=== PATIENT | male | born 1955 | race African-American/Black ===

== ENCOUNTER 2017-01-11 17:51 | Inpatient (IN) | payer OTHER ==
--- NOTE | 2017-01-11 18:21 | PDOC ---
History of Present Illness - General History Source: Patient, EMS, Spouse, Old Records Exam Limitations: No Limitations - History of Present Illness Initial Comments: 01/11/17 20:11 The patient is a 61 year old male, with a significant past medical history of hypertension, hyperlipidemia, CVA (with residual right sided weakness) and a two month admission to this hospital last year (10/16/2015 - 12/22/2015), who presents to the emergency department via EMS with a fever. The patient states that he had a routine visit with his occupational therapist earlier today, during which his vitals were taken. He reports that although he did not feel as though he had a fever, his temperature was recorded to be 101.7 degrees. His occupational therapist subsequently called his PMD, who advised that he go to the ED for further evaluation. The patient denies chest pain or shortness of breath. The patient denies chills, cough, nausea, vomiting, diarrhea, melena/ bpr or dysuria. The patient denies back pain. The patient uses a wheelchair at baseline. The patients is at the bedside. Allergies: None reported. Past Surgical History: Laminectomy T9-S1 with debridement (10/22/2015); Drainage of paraspinal and epidural abscesses Social History: Non smoker. Denies alcohol or drug use. PCP: Dr. Milind Leos <Pauline Stein - Last Filed: 01/11/17 22:38> <Efrem Marquez - Last Filed: 01/12/17 00:25> - General Chief Complaint: Blood Pressure Problem Stated Complaint: LOW BLOOD PRESSURE Time Seen by Provider: 01/11/17 18:09 Past History <Pauline Stein - Last Filed: 01/11/17 22:38> - Past Medical History CVA: Yes (R SIDED WEAKNESS) HTN: Yes Hypercholesterolemia: Yes - Psycho/Social/Smoking Cessation Hx Suicidal Ideation: No Smoking History: Never smoked Have you smoked in the past 12 months: No Information on smoking cessation initiated: No Hx Alcohol Use: No Drug/Substance Use Hx: No Substance Use Type: None Hx Substance Use Treatment: No <Efrem Marquez - Last Filed: 01/12/17 00:25> - Past Medical History Allergies/Adverse Reactions: Allergies Allergy/AdvReac Type Severity Reaction Status Date / Time No Known Allergies Allergy Verified 01/11/17 17:56 Home Medications: Ambulatory Orders Aspirin [Aspirin EC] 81 mg PO DAILY 10/16/15 Baclofen 10 mg PO HS 10/16/15 Multivitamins [Multivit ([facility] Formulary)] 1 tab PO DAILY 10/16/15 Acetaminophen [Tylenol .Regular Strength -] 650 mg PO Q6H PRN #0 tablet Amino Acids/Protein Hydrolys [Prostat Sugar-Free Packet -] 30 ml PO BID@0800, 1730 packet 12/22/15 Atenolol [Tenormin -] 50 mg PO DAILY tablet 12/22/15 Cefazolin 2 gm/D5w [Ancef 2 gm Premixed Ivpb -] 50 ml IVPB Q8H-IV #51 ml Enoxaparin [Lovenox -] 40 mg SQ DAILY disp.syrin 12/22/15 Lactobacillus Acidophilus [Bacid -] 1 tab PO DAILY tab 12/22/15 Losartan Potassium [Cozaar -] 50 mg PO DAILY tablet 12/22/15 Magnesium Oxide [Mag-Ox -] 400 mg PO BID tablet 12/22/15 Potassium Chloride Oral Soln [KCl Oral Solution -] 20 meq PO DAILY cup Ranitidine [Zantac -] 150 mg PO BID tablet 12/22/15 Review of Systems - Review of Systems Able to Perform ROS?: Yes Comments:: 01/11/17 19:49 CONSTITUTIONAL: +Fever. No chills, no fatigue EYES: No visual changes ENT: No ear pain, no sore throat CARDIOVASCULAR: No chest pain, no palpitations RESPIRATORY: No cough, no SOB GI: No abdominal pain, no nausea, no vomiting, no constipation, no diarrhea GENITOURINARY: No dysuria, no frequency, no hematuria MUSKULOSKELETAL: No back pain, no joint pain, no myalgias SKIN: No rash NEURO: No headache <MercerPauline pace - Last Filed: 01/11/17 22:38> *Physical Exam - Vital Signs Last Vital Signs Temp Pulse Resp BP Pulse Ox 98 F 102 H 18 113/68 98 01/11/17 17:58 01/11/17 17:58 01/11/17 17:58 01/11/17 17:58 01/11/17 17:58 <Pauline Stein - Last Filed: 01/11/17 22:38> - Vital Signs Last Vital Signs Temp Pulse Resp BP Pulse Ox 98 F 102 H 18 113/68 98 01/11/17 17:58 01/11/17 17:58 01/11/17 17:58 01/11/17 17:58 01/11/17 17:58 - Physical Exam Comments: 01/11/17 20:24 EXAMINATION CONSTITUTIONAL: alert and awake; obese; in no apparent distress HEAD: Normocephalic; atraumatic EYES: PERRL; EOM intact ENMT: External appears normal; mm-dry NECK: Supple; non-tender; no cervical lymphadenopathy CARD: tachycardic; Normal S1, S2; no murmurs, rubs, or gallops RESP: Normal chest excursion with respiration; breath sounds clear and equal bilaterally; no wheezes, rhonchi, or rales ABD: Soft, non-distended; non-tender; no palpable organomegaly, no palpable hernias BACK: no deform; + well healed midline lumbar scar; no midline ttp : + hypospadias; no scrotal masses/fluctuance EXT: Normal passive ROM in all four extremities; non-tender to palpation; distal pulses intact SKIN: Warm, dry, no rash NEURO: cn ii-xii grossly intact; motor: RUE: 5/5; RLE: 2/5; LLE/LUE: 5/5. gait-deffred <Efrem Marquez - Last Filed: 01/12/17 00:25> Heart Score/ECG Review #1 ECG reviewed & interpreted by me at: 18:07 (Vent Rate: 102. Sinus tachycardia. Possible left atrial enlargement. Inferior infarct, age undetermined.) <Pauline Stein - Last Filed: 01/11/17 22:38> ED Treatment Course - LABORATORY CBC & Chemistry Diagram: 01/11/17 22:04 01/11/17 19:50 <Pauline Stein - Last Filed: 01/11/17 22:38> - LABORATORY CBC & Chemistry Diagram: 01/11/17 22:04 01/11/17 19:50 <Efrem Marquez - Last Filed: 01/12/17 00:25> Medical Decision Making - Medical Decision Making 01/11/17 22:38 EXAM: RAD/CHEST X-RAY PORTABLE Reviewed By: Dr. Mila Mireles IMPRESSION: No significant interval change or acute lung disease is present. <Pauline Stein - Last Filed: 01/11/17 22:38> - Critical Care Time Total Critical Care Time (minutes): 90 Critical Care Statement: The care of this patient involved high complexity decision making to prevent further life threatening deterioration of the patient 's condition and/or to evalute & treat vital organ system(s) failure or risk of failure. - Medical Decision Making 01/11/17 20:30 Patient is 61-year-old male with history of hypertension, hyperlipidemia, CVA, status post epidural abscess resection with urinary incontinence presents with generalized weakness, malaise, MAXIMUM TEMPERATURE of 101.7 at home and transient hypotension and route to the ER. In the ER, patient is initially noted to be afebrile with a labile blood pressure the response to fluid boluses. There is no evidence of meningismus. Lungs are clearance real abdominal exams reveal no focal tenderness. There is no evidence of midline back or CVA tenderness. There is no evidence of soft tissue infection. We'll obtain CBC/CMP/UA/urine culture/blood culture/lactic acid. We'll obtain chest x- ray. Will aggressively hydrate. Will reassess, likely admission 01/11/17 21:30 Patient reassessed. Patient is asymptomatic but his blood pressure remains labile requiring intermittent boluses of normal saline. CBC is clotted CMP reveals minimally elevated lactic acid and positive troponis and CPK likely consistent with demand ischemia. Urinalysis reveals numerous wbc's and rbc's per high-power field consistent with cystitis. Patient has received IV Zosyn. Will admit to the ICU further evaluation and treatment. 01/11/17 22:02 patient complaining of shaking chills. Repeat rectal temperature noted to be 102.7. Patient is going to receive IV Tylenol and continue to be fluid resuscitated. Will repeat lactic acid. Awaiting transfer to the ICU 01/12/17 00:24 Patient is resting comfortably. Patient refused Woodson catheter. Repeat blood pressure noted to be 90/72 with the MHP of 75. Awaiting transfer to the ICU. <Efrme Marquez - Last Filed: 01/12/17 00:25> *DC/Admit/Observation/Transfer - Attestations Scribe Attestion: 01/11/17 18:33 Documentation prepared by Pauline Stein, acting as medical office representative for Efrem Marquez MD. <Pauline Stein - Last Filed: 01/11/17 22:38> - Discharge Dispostion Admit: Yes - Attestations Physician Attestion: 01/11/17 22:50 The documentation was prepared by the scribe under my direct supervision. I have reviewed the documentation which correctly represents the findings, medical decision-making and critical action taken by me. <Efrem Marquez - Last Filed: 01/12/17 00:25> Diagnosis at time of Disposition: Non-ST elevated myocardial infarction (non-STEMI) Sepsis Qualifiers: Sepsis type: sepsis due to unspecified organism Qualified Code(s): A41.9 - Sepsis, unspecified organism Urinary tract infection Qualifiers: Urinary tract infection type: acute cystitis Hematuria presence: with hematuria Qualified Code(s): N30.01 - Acute cystitis with hematuria - Referrals
[2017-01-11 20:19] LABS: VENOUS BLOOD GAS HCO3 22.6 meq/L (19-25); VENOUS PH 7.36 (7.32-7.42)
[2017-01-11 20:32] LABS: CALCIUM 7.9 mg/dL (8.5-10.1)
[2017-01-11 20:34] LABS: INR 1.28 (0.82-1.09); PROTHROMBIN TIME (PATIENT) 14.1 SEC (9.98-11.88)
[2017-01-11] MEDS: SODIUM CHLORIDE 0.9% 500 ML INFUS.BAG IV PRN (20:35)
[2017-01-11 20:37] LABS: ACTIVATED PTT 21.1 SECONDS (26.9-34.4)
[2017-01-11 20:41] LABS: URINE APPEARANCE SLCLOUDY; URINE BILIRUBIN NEGATIVE (NEGATIVE); URINE COLOR YELLOW; URINE GLUCOSE (UA) NEGATIVE (NEGATIVE); URINE KETONE NEGATIVE (NEGATIVE); URINE NITRITE NEGATIVE (NEGATIVE); URINE UROBILINOGEN NEGATIVE E.U./dl (0.2-1.0)
[2017-01-11 20:49] LABS: BILIRUBIN,TOTAL 0.6 mg/dL (0.2-1.0); COCKROFT - GAULT 80.22; CREATININE 1.3 mg/dL (0.7-1.3); TOT PROT 7.2 g/dl (6.4-8.2)
[2017-01-11 21:03] LABS: TROPONIN I 1.88 ng/ml (0.00-0.05)
[2017-01-11 21:20] LABS: URINE BLOOD 3+ (NEGATIVE); URINE LEUK ESTERASE 2+ (NEGATIVE); URINE PROTEIN 1+ (NEGATIVE)
[2017-01-11 21:24] LABS: URINE BACTERIA MANY /hpf (NONE SEEN); URINE MUCUS RARE; URINE RBC 123 /hpf (0-3); URINE WBC 30 /hpf (3-5); YEAST MANY
[2017-01-11] MEDS ORDERED: ACETAMINOPHEN 1000 MG/100 ML VIAL (NON FORMULARY) IVPB ONE (21:30)
[2017-01-11] MEDS ORDERED: PIPERACILLIN/TAZOB 4.5 GM/100 ML PRE-DOCKED IVPB ONE (21:30)
[2017-01-11] MEDS ORDERED: PIPERACILLIN/TAZOB 4.5 GM 100 ML IVPB ONE (21:37)
[2017-01-11] MEDS ORDERED: ACETAMINOPHEN INJECTION 100 ML IVPB ONE (21:37)
[2017-01-11 22:14] LABS: BASOPHIL 0.3 % (0-2.0); MCH 26.4 pg (25.7-33.7); MCHC 31.8 g/dl (32.0-35.9); MEAN CELL VOLUME 82.8 fl (80-96); MEAN PLT VOLUME 7.9 fl (7.5-11.1); NEUTROPHILS 83.4 % (42.8-82.8); PLATELET COUNT 185 K/MM3 (134-434); RDW 14.8 % (11.9-15.9); WHITE BLOOD COUNT 11.1 K/mm3 (4.0-10.0)
--- NOTE | 2017-01-11 22:16 | HP ---
Addendum entered and electronically signed by Lalo Hammer, LORNE 01/12/17 19: 28: Original Note: CHIEF COMPLAINT: fever, low BP PCP: Dr. Leos ID: Dr. Espinosa Cardio: Dr. Rodríguez HISTORY OF PRESENT ILLNESS: 62 yr old man with HTN, HLD, hx of CVA with residual right lower extremity weakness, urinary incontinence, hx of spinal abscess was BIBEMS when occupational therapist at home found him to have oral temp of 101.7 and BP of 90 /60. Baseline BP is 120's systolic. Yesterday he had 3 episodes of watery/ mucous nonbilous nonbloody vomiting and has been having constipation for the past 1 weeks. notes that he did have small bowel movement this morning, soft brown, no blood, no mucus. He does not recall if he has been passing gas. constipation and vomiting are unusual for him. Sunday night he sustained a mechanical fall onto his right side in the middle of the night while using a walker to walk to the bathroom. denies LOC, lightheadedness, dizziness, chest pain, head trauma. denies hematuria, dysuria, penile discharge, foul smelling urina, pyuria, chest pain, palpitations, shortness of breath, fevers, chillls, headache, nausea. He has PND which causes him to have "coughing fits." Was discharged from rehab facility on December 14 2016 after yr-long stay, he was transferred there from [facility] to continue IV-abx for spinal abcess and received rehab, last abx use was in March. ER course was notable for: (1) sepsis protocol initiated (2) trop and lactic acid elevated (3) u/a, ekg Recent Travel: none PAST MEDICAL HISTORY: CVA 2015 Spinal abcess HTN urinary incontinence melanoma PAST SURGICAL HISTORY: spinal surgery melonoma removal left palm, medially located removed 2015, skin graft from left thigh. Social History: Smoking: smoking 1-1.5pks for 20 yrs, quit >10yrs ago Alcohol: quit >10yrs ago Drugs: quit in 1988, heroin(IVDU) and cocaine(snorting), no relapses Family History: Allergies No Known Allergies Allergy (Verified 01/11/17 17:56) HOME MEDICATIONS: Home Medications Medication Instructions Recorded Aspirin [Aspirin EC] 81 mg PO DAILY 10/16/15 Baclofen 10 mg PO HS 10/16/15 Multivitamins [Multivit ([facility] 1 tab PO DAILY 10/16/15 Formulary)] Acetaminophen [Tylenol .Regular 650 mg PO Q6H PRN #0 tablet 12/22/15 Strength -] Amino Acids/Protein Hydrolys 30 ml PO BID@0800,1730 packet 12/22/15 [Prostat Sugar-Free Packet -] Atenolol [Tenormin -] 50 mg PO DAILY tablet 12/22/15 Cefazolin 2 gm/D5w [Ancef 2 gm 50 ml IVPB Q8H-IV #51 ml 12/22/15 Premixed Ivpb -] Enoxaparin [Lovenox -] 40 mg SQ DAILY disp.syrin 12/22/15 Lactobacillus Acidophilus [Bacid -] 1 tab PO DAILY tab 12/22/15 Losartan Potassium [Cozaar -] 50 mg PO DAILY tablet 12/22/15 Magnesium Oxide [Mag-Ox -] 400 mg PO BID tablet 12/22/15 Potassium Chloride Oral Soln [KCl 20 meq PO DAILY cup 12/22/15 Oral Solution -] Ranitidine [Zantac -] 150 mg PO BID tablet 12/22/15 REVIEW OF SYSTEMS CONSTITUTIONAL: Absent: fever, chills, diaphoresis, generalized weakness, malaise, loss of appetite, weight change HEENT: Absent: rhinorrhea, nasal congestion, throat pain, throat swelling, difficulty swallowing, mouth swelling, ear pain, eye pain, visual changes CARDIOVASCULAR: Absent: chest pain, syncope, palpitations, irregular heart rate, lightheadedness , peripheral edema RESPIRATORY: Absent: cough, shortness of breath, dyspnea with exertion, orthopnea, wheezing, stridor, hemoptysis GASTROINTESTINAL: Absent: abdominal pain, abdominal distension, nausea, vomiting, diarrhea, constipation, melena, hematochezia GENITOURINARY: Absent: dysuria, frequency, urgency, hesitancy, hematuria, flank pain, genital pain MUSCULOSKELETAL: Absent: myalgia, arthralgia, joint swelling, back pain, neck pain SKIN: Absent: rash, itching, pallor HEMATOLOGIC/IMMUNOLOGIC: Absent: easy bleeding, easy bruising, lymphadenopathy, frequent infections ENDOCRINE: Absent: unexplained weight gain, unexplained weight loss, heat intolerance, cold intolerance NEUROLOGIC: Present: urinary incontinence Absent: headache, focal weakness or paresthesias, dizziness, unsteady gait, seizure, mental status changes, bowel incontinence PHYSICAL EXAMINATION Vital Signs - 24 hr 01/11/17 01/11/17 01/11/17 17:58 20:35 21:18 Temperature 98 F 99.0 F Pulse Rate 102 H Pulse Rate [ 116 H Apical] Respiratory 18 30 H Rate Blood Pressure 113/68 100/61 Blood Pressure 108/96 [Left Arm] O2 Sat by Pulse 98 100 Oximetry (%) 01/11/17 01/11/17 21:21 21:30 Temperature 102.7 F H Pulse Rate 116 H 120 H Pulse Rate [ Apical] Respiratory 26 H Rate Blood Pressure 114/89 Blood Pressure [Left Arm] O2 Sat by Pulse 100 100 Oximetry (%) GENERAL: Awake, alert, and fully oriented, in no acute distress. HEAD: Normal with no signs of trauma. EYES: Pupils equal, round and reactive to light, extraocular movements intact, sclera anicteric, conjunctiva clear. No lid lag. EARS, NOSE, THROAT: Ears normal, nares patent, oropharynx clear without exudates /erythema. Moist mucous membranes. NECK: Normal range of motion, supple without lymphadenopathy, JVD, or masses. LUNGS: Breath sounds equal, clear to auscultation bilaterally. No wheezes, and no crackles. No accessory muscle use. HEART: Regular rate and rhythm, normal S1 and S2 without murmur, rub or gallop. ABDOMEN: obese, Soft, nontender, not distended, normoactive bowel sounds, no guarding, no rebound, no masses. MUSCULOSKELETAL: moving all extremities without difficulty. No bony deformities or tenderness. No CVA tenderness. right lower back with 2 diagonal excoriations without underlying ecchomosis/fluactance. UPPER EXTREMITIES: 2+ pulses, warm, well-perfused. No cyanosis. No clubbing. No peripheral edema. 4/5 right hand senior managing director. 5/5 left hand senior managing director. LOWER EXTREMITIES: 2+ pulses, warm, well-perfused. No calf tenderness. No peripheral edema. decreased 3/5 strength plantarflexion/dorsiflexion of right foot, 5/5 in left foot. NEUROLOGICAL: Cranial nerves II-XII intact. Normal speech. facial symmtery. tingling in b/l soles, decreased sensation on right face:forehead/cheek/chin. PSYCHIATRIC: Cooperative. Good eye contact. Appropriate mood and affect. SKIN: Warm, dry, normal turgor, normal capillary refill. Laboratory Results - last 24 hr 01/11/17 01/11/17 01/11/17 19:40 19:40 19:40 WBC Cancelled Corrected WBC (auto) Cancelled RBC Cancelled Hgb Cancelled Hct Cancelled MCV Cancelled MCHC Cancelled RDW Cancelled Plt Count Cancelled MPV Cancelled Neutrophils % Cancelled Lymphocytes % Cancelled Monocytes % Cancelled Eosinophils % Cancelled Basophils % Cancelled Differential Comment Cancelled Smudge Cells Cancelled Platelet Estimate Cancelled Platelet Comment Cancelled RBC Morphology Cancelled INR 1.28 H PTT (Actin FS) 21.1 L D VBG pH POC VBG pCO2 POC VBG pO2 Mixed VBG HCO3 Sodium Potassium Chloride Carbon Dioxide Anion Gap BUN Creatinine Creat Clearance w eGFR Random Glucose Lactic Acid 2.013 H* Calcium Total Bilirubin AST ALT Alkaline Phosphatase Creatine Kinase Creatine Kinase Index CK-MB (CK-2) CK-MB (CK-2) Rel Index Troponin I Total Protein Albumin Urine Color Urine Appearance Urine pH Ur Specific [employer] Urine Protein Urine Glucose (UA) Urine Ketones Urine Blood Urine Nitrite Urine Bilirubin Urine Urobilinogen Ur Leukocyte Esterase Urine RBC Urine WBC Urine Bacteria Urine Mucus Urine Yeast 01/11/17 01/11/17 01/11/17 19:50 19:50 20:10 WBC Corrected WBC (auto) RBC Hgb Hct MCV MCHC RDW Plt Count MPV Neutrophils % Lymphocytes % Monocytes % Eosinophils % Basophils % Differential Comment Smudge Cells Platelet Estimate Platelet Comment RBC Morphology INR PTT (Actin FS) VBG pH 7.36 POC VBG pCO2 41.4 POC VBG pO2 35.9 Mixed VBG HCO3 22.6 Sodium 142 Potassium 3.8 Chloride 107 Carbon Dioxide 23 D Anion Gap 12 BUN 25 H Creatinine 1.3 D Creat Clearance w eGFR 55.75 Random Glucose 126 H D Lactic Acid Calcium 7.9 L Total Bilirubin 0.6 AST 33 D ALT 21 Alkaline Phosphatase 131 H D Creatine Kinase 500 H D Creatine Kinase Index 0.5 CK-MB (CK-2) 2.448 CK-MB (CK-2) Rel Index Cancelled Troponin I 1.88 H* D Total Protein 7.2 Albumin 3.0 L Urine Color Urine Appearance Urine pH Ur Specific [employer] Urine Protein Urine Glucose (UA) Urine Ketones Urine Blood Urine Nitrite Urine Bilirubin Urine Urobilinogen Ur Leukocyte Esterase Urine RBC Urine WBC Urine Bacteria Urine Mucus Urine Yeast 01/11/17 20:17 WBC Corrected WBC (auto) RBC Hgb Hct MCV MCHC RDW Plt Count MPV Neutrophils % Lymphocytes % Monocytes % Eosinophils % Basophils % Differential Comment Smudge Cells Platelet Estimate Platelet Comment RBC Morphology INR PTT (Actin FS) VBG pH POC VBG pCO2 POC VBG pO2 Mixed VBG HCO3 Sodium Potassium Chloride Carbon Dioxide Anion Gap BUN Creatinine Creat Clearance w eGFR Random Glucose Lactic Acid Calcium Total Bilirubin AST ALT Alkaline Phosphatase Creatine Kinase Creatine Kinase Index CK-MB (CK-2) CK-MB (CK-2) Rel Index Troponin I Total Protein Albumin Urine Color Yellow Urine Appearance Slcloudy Urine pH 5.0 Ur Specific [employer] 1.014 Urine Protein 1+ H Urine Glucose (UA) Negative Urine Ketones Negative Urine Blood 3+ H Urine Nitrite Negative Urine Bilirubin Negative Urine Urobilinogen Negative Ur Leukocyte Esterase 2+ H Urine RBC 123 Urine WBC 30 Urine Bacteria Many Urine Mucus Rare Urine Yeast Many Laboratory Tests 01/11/17 01/11/17 01/11/17 19:40 19:50 22:04 Lactic Acid 2.013 H* 1.393 Troponin I 1.88 H* D 01/12/17 02:00 Lactic Acid Troponin I 1.39 H* ASSESSMENT/PLAN: 62 yr old man with hx of CVA, epidural abscess, HTN, urinary incontinence admitted to ICU for sepsis. - to bring in medications from home, unable to find ambulance documentation of home meds. - hx of klebsiella in urine cx 11/2015 - resistant to ampicillin/cefuroxime, trimethoprim/sulfamethaxozole #Sepsis - likely UTI source (cxy negative for lung as source) - admitted to ICU - repeat lactic acid - zosyn 4.5gm IVpb (one dose in the ed), continue - ID consulted; Dr. Espinosa (seen on last admission) - IVF NS - urine and bld cx pending - continuous cardiac monitoring #NSTEMI - elevated troponins, heart score 6 - suspicious for demand ischemia due to low bp/sepsis, however given heart score of 6 will treat for nstemi - trend troponins, echo in the AM (last echo 11/2015 w/o measurements, showed normal LVF, no wall motion abnormalities) - Dr. Rodríguez consulted for cardiology - heparin gtt - titration protocol; ptt/cbc/fobt/bolus as per protocol - asa 81mg 1 tablet daily, plavix 75mg po 1 tablet daily - hold home anti-hypertensives (cozaar 50mg tablet daily, tenormin 50mg tablet daily) #HTN - currently hypotensive - hold home medications #chronic back pain - baclofen 10mg tablet po hs #constipation - miralax 17gm po daily #Diet - low sodium #DVT -heparin gtt/scd's Visit type - Emergency Visit Emergency Visit: Yes ED Registration Date: 01/11/17 Care time: The patient presented to the Emergency Department on the above date and was hospitalized for further evaluation of their emergent condition. - New Patient This patient is new to me today: Yes Date on this admission: 01/11/17 - Critical Care Critical Care patient: Yes Total Critical Care Time (in minutes): 50 Critical Care Statement: The care of this patient involved high complexity decision making to prevent further life threatening deterioration of the patient 's condition and/or to evalute & treat vital organ system(s) failure or risk of failure.
--- NOTE | 2017-01-11 22:18 | PN ---
<Silvia Stover - Last Filed: 01/11/17 22:18> Teaching Attending Note Name of Resident: Lalo Hammer ATTENDING PHYSICIAN STATEMENT I saw and evaluated the patient. I reviewed the resident's note and discussed the case with the resident. I agree with the resident's findings and plan as documented. SUBJECTIVE: OBJECTIVE: ASSESSMENT AND PLAN: <PierceAnaly - Last Filed: 01/11/17 23:31> Teaching Attending Note ATTENDING PHYSICIAN STATEMENT I saw and evaluated the patient. I reviewed the resident's note and discussed the case with the resident. I agree with the resident's findings and plan as documented. SUBJECTIVE: The patient is a 61 year old male, with a significant past medical history of HTN, HLD, CVA(with residual R sided weakness), urinary incontinence s/p Spinal epidural abscess, post nasal drip who presents with fever, malaise which was found by his occupation therapist that visited his home this morning. Patient reports 3 vomitting episodes (nonbloody, nonbilious). Patient also notes, constipation for the past few days. Patient denies any chest pain pressure, nausea or diarrhea. Patient denies any hematuria, dysuria, urgency or frequency. Patient denies back pain. Of note patient was admitted to [facility] from to 12/22/2015. OBJECTIVE: Last Vital Signs Temp Pulse Resp BP Pulse Ox 102.7 F H 99 H 20 89/58 99 01/11/17 21:30 01/11/17 22:30 01/11/17 22:30 01/11/17 22:30 01/11/17 22:30 GEN: NAD. Midde aged man resting in bed. Able to speak in full sentences. HEENT: NCAT, PERRL CARD: Sinus Tachycardia. S1 S2 RESP: CTAB ABD: NT, BWS x4 EXT: - CCE NEURO: Weakness on R side +4/5 muscle strength on R hand. CBCD WBC 11.1 K/mm3 (4.0-10.0) H 01/11/17 22:04 RBC 3.97 M/mm3 (4.00-5.60) L 01/11/17 22:04 Hgb 10.5 GM/dL (11.7-16.9) L 01/11/17 22:04 Hct 32.9 % (35.4-49) L 01/11/17 22:04 MCV 82.8 fl (80-96) 01/11/17 22:04 MCHC 31.8 g/dl (32.0-35.9) L 01/11/17 22:04 RDW 14.8 % (11.9-15.9) 01/11/17 22:04 Plt Count 185 K/MM3 (134-434) D 01/11/17 22:04 MPV 7.9 fl (7.5-11.1) D 01/11/17 22:04 CMP Sodium 142 mmol/L (136-145) 01/11/17 19:50 Potassium 3.8 mmol/L (3.5-5.1) 01/11/17 19:50 Chloride 107 mmol/L (98-107) 01/11/17 19:50 Carbon Dioxide 23 mmol/L (21-32) D 01/11/17 19:50 Anion Gap 12 (8-16) 01/11/17 19:50 BUN 25 mg/dL (7-18) H 01/11/17 19:50 Creatinine 1.3 mg/dL (0.7-1.3) D 01/11/17 19:50 Creat Clearance w eGFR 55.75 (>60) 01/11/17 19:50 Calcium 7.9 mg/dL (8.5-10.1) L 01/11/17 19:50 Total Bilirubin 0.6 mg/dL (0.2-1.0) 01/11/17 19:50 AST 33 U/L (15-37) D 01/11/17 19:50 ALT 21 U/L (12-78) 01/11/17 19:50 Alkaline Phosphatase 131 U/L (45-117) H D 01/11/17 19:50 Total Protein 7.2 g/dl (6.4-8.2) 01/11/17 19:50 Albumin 3.0 g/dl (3.4-5.0) L 01/11/17 19:50 Imaging: EKG Vent Rate: 102. Sinus tachycardia. Possible left atrial enlargement. Inferior infarct, age undetermined. CXR EXAM: RAD/CHEST X-RAY PORTABLE Reviewed By: Dr. Mila Mireles IMPRESSION: No significant interval change or acute lung disease is present. ASSESSMENT AND PLAN: The patient is a 61 year old male, with a significant past medical history of HTN, HLD, CVA( with residual R sided weakness), urinary incontinence s/p Spinal epidural abscess who presents with fever found to be septic and to have a NSTEMI. 1.)Sepsis most likely secondary to UTI Prior UC positive for Klebsiella, sensitive to Zosyn Continue with Zosyn ID consult Repeat Lactic Acid Blood Culture Urine cultures IVF 2.)NSTEMI Troponin elevation probably due to demand ischemia Received aspirin in ED Heparin GTT Trend troponins/ECG Heart score: 6 Cardiology consult Continue with aspirin Plavix Continue with O2 BP labile Will hold beta claudia Echocardiogram 3.)HTN Hold meds as BP is labile 4.)DVT PPx Heparin GTT Admit to ICU CC Time: 45 min Documentation prepared by Analy Pelayo, acting as medical records custodian for Jolanta Vega DO
[2017-01-11] MEDS ORDERED: ASPIRIN 81 MG CHEWABLE TABLETS PO ONE (22:20)
[2017-01-11] MEDS ORDERED: SODIUM CHLORIDE 500 ML IV STA (22:21)
[2017-01-11] MEDS ORDERED: ASPIRIN 81 MG CHEWABLE TABLETS ONE (22:24)
[2017-01-11] MEDS ORDERED: SODIUM CHLORIDE 1,000 ML IV STA (22:49)
--- NOTE | 2017-01-11 23:05 | CONSULT ---
Consult Consult Specialty:: Pulm/CCM - History of Present Illness Chief Complaint: Fever and malaise History of Present Illness: 61yom with PMHx HTN, HLD, CVA with residual right side weakness, drainage of paraspinal and epidural abscess in 2016 c/b neurogenic bladder. Today pt with c/ o of malaise at OT session. Found to be febrile to 101.7F. PMD recommended pt be sent to ED. Most recent hospitalization 10/02to 11/30 for spinal abscess c/b staph aureaus and klebsiella bacteremia and klebsiella UTI. He was recently discharged home after an extended stay in rehab. In ED VS T 99->102.7, HR 120, BP 110-110/80. UA sig for WBC 30, 2+ Leuks, . Blood and urine cultures sent. Started on Zosyn IV for hx of klebsiella UTI. Total 2L fluid bolus given for SBP to 80's with response to 110's. Labs notable for WBC 11.1 with N 83.4%, Trop 1.88, Lact 2.013, creat 1.3. ECG with T wave inversions. No c/o chest pain. CXR clear. Reports fall in home about 2 nights [employer] with trauma and scratches to rt hip and knee. Also reports vomiting x3 and constipation few days [employer]. He was transferred to ICU for further management. Received A+o x3, BP 83/50 HR 90's T 97. He denied suprpubic discomfort, blood, burning or strong odor with urine. Placed Rt IJ TLC for fluid boluses and meds. 1L LR bolus given and phenylephrine drip started. 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 Cardio/Vascular: Yes: HTN, Hyperlipdemia Renal/: Yes: Neurogenic Bladder, UTI Musculoskeletal: Yes: Other (RLE weakness) - Past Surgical History Past Surgical History: Yes: None, Laminectomy - Alcohol/Substance Use Hx Alcohol Use: No History of Substance Use: reports: None - Smoking History Smoking history: Never smoked Have you smoked in the past 12 months: No - Social History ADL: Independent History of Recent Travel: No Home Medications - Allergies Allergies/Adverse Reactions: Allergies Allergy/AdvReac Type Severity Reaction Status Date / Time No Known Allergies Allergy Verified 01/11/17 17:56 - Home Medications Home Medications: Ambulatory Orders Aspirin [Aspirin EC] 81 mg PO DAILY 10/16/15 Baclofen 10 mg PO HS 10/16/15 Multivitamins [Multivit ([facility] Formulary)] 1 tab PO DAILY 10/16/15 Acetaminophen [Tylenol .Regular Strength -] 650 mg PO Q6H PRN #0 tablet Amino Acids/Protein Hydrolys [Prostat Sugar-Free Packet -] 30 ml PO BID@0800, 1730 packet 12/22/15 Atenolol [Tenormin -] 50 mg PO DAILY tablet 12/22/15 Cefazolin 2 gm/D5w [Ancef 2 gm Premixed Ivpb -] 50 ml IVPB Q8H-IV #51 ml Enoxaparin [Lovenox -] 40 mg SQ DAILY disp.syrin 12/22/15 Lactobacillus Acidophilus [Bacid -] 1 tab PO DAILY tab 12/22/15 Losartan Potassium [Cozaar -] 50 mg PO DAILY tablet 12/22/15 Magnesium Oxide [Mag-Ox -] 400 mg PO BID tablet 12/22/15 Potassium Chloride Oral Soln [KCl Oral Solution -] 20 meq PO DAILY cup Ranitidine [Zantac -] 150 mg PO BID tablet 12/22/15 Family Disease History - Family Disease History Family History: Unremarkable Review of Systems - Review of Systems Constitutional: reports: Fever, Weakness Eyes: reports: No Symptoms HENT: reports: No Symptoms Neck: reports: No Symptoms Cardiovascular: reports: No Symptoms Gastrointestinal: reports: Bloating, Constipation Genitourinary: reports: No Symptoms, Other (denies odor, blood or burning) Musculoskeletal: reports: Joint Pain (chronic back pain -on Percocet), Other ( chronic BLE neuropathy) Neurological: reports: No Symptoms Endocrine: reports: No Symptoms Hematology/Lymphatic: reports: No Symptoms Psychiatric: reports: No Symptoms Physical Exam Vital Signs: Vital Signs Temperature 102.7 F H 01/11/17 21:30 Pulse Rate 99 H 01/11/17 22:30 Respiratory Rate 20 01/11/17 22:30 Blood Pressure 89/58 01/11/17 22:30 O2 Sat by Pulse Oximetry (%) 99 01/11/17 22:30 Constitutional: Yes: Obese Eyes: Yes: EOM Intact, PERRL HENT: Yes: Normocephalic Neck: Yes: Supple Cardiovascular: Yes: Regular Rate and Rhythm Respiratory: Yes: WNL, CTA Bilaterally Gastrointestinal: Yes: Distention, Other (firm, non tender) Renal/: Yes: Incontinence (refuses villanueva cath) Musculoskeletal: Yes: WNL Edema: No Peripheral Pulses WNL: Yes Integumentary: Yes: WNL Neurological: Yes: WNL, Alert, Oriented ...Motor Strength: RUE (Chronic rt side weakness), RLE Labs: CBC, BMP 01/11/17 22:04 01/11/17 19:50 Assessment/Plan 61yom with Hx HTN, HLD, CVA with rt sided residual, repair of spinal abscess c/ b neurogenic bladder now admitted with m/l urosepsis. Ccb demand ischemia SMILEY. Rt IJ TLC placed for fluids and meds. ID: m/l Urosepsis; Hx of torres-sensitive klebsiella UTI and bacteremia -ID consult -Cont Zosyn IV q8 -f/u urine and blood cultures -Trend lactate CV Sepsis; NSTEMI +/-Demand ischemia -Cardiology consult -Fluid boluses as needed -Vasopressors as needed for MAP>65 -Trend troponin -Cont ASA and Plavix -Cont statin -Hold antiHTN meds for now -ECG -TTE Renal SMILEY in setting of sepsis, resolved lactic acidosis -monitor BMP and UOP -Hydration -villanueva cath -Renal dose meds Proph Hep IV Anastasia Ramírez, EARNEST
[2017-01-11] MEDS ORDERED: HEPARIN NA (PORCINE) 5,000 UNITS/ML 1ML VIAL IVPUSH PRN ×2 (23:36)
[2017-01-11] MEDS ORDERED: POLYETHYLENE GLYCOL 3350 119 GM BTL PO ONE (23:42)
[2017-01-11] MEDS ORDERED: HEPARIN INFUSION - 500 ML IVPB SCH (23:45)
[2017-01-11] MEDS ORDERED: HEPARIN INFUSION - 500 ML IVPB ONE (23:54)
[2017-01-11] MEDS ORDERED: HEPARIN NA (PORCINE) 5,000 UNITS/ML 1ML VIAL ONE (23:54)
[2017-01-12 00:58] VITALS: BMI 34.3
--- NOTE | 2017-01-12 02:14 | PROC ---
Procedure Note Procedure: Rt IJ TLC placement for med and fluid infusion and monitoring. Skin site prepped with chlorhexedine, sterile procedures followed. pt placed in trendelenburg, Lidocaine 5cc used to numb area, 20G TLC inserted via seldinger procedure to 16cm. Pt tolerate procedure well. there was about 5cc blood loss. CXR ordered for placement confirmation. CXR shows no pneumothorax. TLC in SVC. TLC is OK to use EARNEST Chery
[2017-01-12] MEDS: SODIUM CHLORIDE 0.9% 500 ML INFUS.BAG IV PRN (02:50)
[2017-01-12] MEDS ORDERED: PHENYLEPHRINE HCL 10 MG/1 ML SINGLE DOSE VIAL ONE (03:04)
[2017-01-12] MEDS: PHENYLEPHRINE HCL 20,000 MCG in SODIUM CHLORIDE 248 ML IVPB SCH ×2 (04:05→06:59)
[2017-01-12] MEDS ORDERED: FUROSEMIDE 40 MG/4 ML INJECTABLE VIAL IVPUSH ONE (05:38)
[2017-01-12] MEDS ORDERED: OXYCODONE/APAP 5/325MG COMBO TABLET PO PRN (05:39)
[2017-01-12] MEDS: ACETAMINOPHEN 1000 MG/100 ML VIAL (NON FORMULARY) IVPB PRN ×3 (05:50→23:00)
[2017-01-12] MEDS ORDERED: oxyCODONE HCL 5 MG TABLET PO ONE (05:54)
[2017-01-12 06:33] LABS: ALBUMIN 2.9 g/dl (3.4-5.0); CALCIUM 7.6 mg/dL (8.5-10.1); COCKROFT - GAULT 79.53; CREATININE 1.4 mg/dL (0.7-1.3)
[2017-01-12 06:35] LABS: BILIRUBIN,TOTAL 0.5 mg/dL (0.2-1.0); TOT PROT 6.9 g/dl (6.4-8.2)
--- NOTE | 2017-01-12 06:48 | PN ---
Physical Exam: SUBJECTIVE: Patient seen and examined patient feels better denies chest pain, sob, cough. denies back pain, denies burning micturation, states increase in frequency. complains of chills and fever. has some urine and faecal incontinence. discussed with site controller, patient has dilated RV with decrease RV function, wic was not there in last echo. So decided to start on heparin drip and will get duplex scan b/l lower limb to r/o dvt. Patient has elevated creatnine so will not get ct angio chest. OBJECTIVE: Vital Signs Period Temp Pulse Resp BP Sys/Conner Pulse Ox Last 24 Hr 97.1 F-102.7 F 80-116 20-26 87-108/49-66 100-100 GENERAL: The patient is awake, alert, and fully oriented, in no acute distress. EYES: PERRL, ENT: Ears normal, nares patent, moist mucous membranes. NECK: Trachea midline, LUNGS: Breath sounds equal, clear to auscultation bilaterally, no wheezes, no crackles, no accessory muscle use. HEART:s1s2 normal. ABDOMEN: Soft, nontender, nondistended, normoactive bowel sounds, no guarding, no rebound, EXTREMITIES: 2+ pulses, warm, well-perfused, no edema. NEUROLOGICAL: Cranial nerves II through XII grossly intact. Normal speech, gait not observed. PSYCH: Normal mood, normal affect. SKIN: Warm, dry, normal turgor, no rashes or lesions noted Laboratory Results - last 24 hr 01/12/17 01/12/17 02:00 05:15 Sodium 145 Potassium 4.2 Chloride 112 H Carbon Dioxide 24 Anion Gap 9 BUN 26 H Creatinine 1.4 H Creat Clearance w eGFR 51.02 Random Glucose 139 H Calcium 7.6 L Total Bilirubin 0.5 AST 36 ALT 25 Alkaline Phosphatase 127 H Troponin I 1.39 H* Total Protein 6.9 Albumin 2.9 L Active Medications Generic Name Dose Route Start Last Admin Trade Name Freq PRN Reason Stop Dose Admin Acetaminophen 1,000 mg 01/12/17 05:44 01/12/17 05:50 Ofirmev Injection - IVPB 01/12/17 23:45 1,000 mg Q6H PRN Administration FEVER OR PAIN Acetaminophen 325 mg 01/12/17 05:50 Tylenol - PO 01/15/17 05:49 Q4H PRN PAIN Aspirin 81 mg 01/12/17 10:00 Ecotrin - PO DAILY JAYCEE Baclofen 10 mg 01/12/17 21:00 Lioresal - PO DAILY JAYCEE Chlorhexidine Gluconate 1 applic 01/12/17 22:00 Hibiclens For Decolonization - TP HS JAYCEE Clopidogrel Bisulfate 75 mg 01/12/17 10:00 Plavix - PO DAILY JAYCEE Heparin Sodium (Porcine) 1,000 unit 01/11/17 23:36 Heparin - IVPUSH PRN PRN Heparin Heparin Sodium (Porcine) 5,000 unit 01/11/17 23:36 Heparin - IVPUSH PRN PRN Heparin Heparin Sodium/Dextrose 500 mls @ 20 mls/hr 01/11/17 23:45 01/12/17 02:39 Heparin Infusion - IVPB 20 mls/hr TITR [facility] Administration Protocol 1,000 UNITS/HR Phenylephrine HCl 20,000 mcg/ 250 mls @ 37.5 mls/hr 01/12/17 03:00 Sodium Chloride IVPB TITR [facility] Protocol 50 MCG/MIN Lactobacillus Acidophilus 1 tab 01/12/17 10:00 Bacid - PO DAILY [facility] Magnesium Oxide 400 mg 01/12/17 10:00 Mag-Ox - PO BID [facility] Multivitamins/Minerals/Vitamin C 1 tab 01/12/17 10:00 Tab-A-Vit - PO DAILY [facility] Mupirocin 1 applic 01/12/17 10:00 Bactroban Ointment (For Decolonization) - NS 01/17/17 09:59 BID JAYCEE Oxycodone HCl 5 mg 01/12/17 05:50 Roxicodone - PO Q4H PRN PAIN Polyethylene Glycol 17 gm 01/12/17 10:00 Miralax (For Daily Use) - PO DAILY [facility] Ranitidine HCl 150 mg 01/12/17 10:00 Zantac - PO BID [facility] Sodium Chloride 500 ml 01/11/17 18:53 01/12/17 02:50 Normal Saline - IV 500 ml Q20M PRN Administration MAP<65mm Hg OR SBP <90 ASSESSMENT/PLAN: 1. sepsis. could be from gram negative bactereia and uti patient had temp of 102.7, PA 116. BP 108/66 lactic acid decreased to normal follow culture urine and blood monitor vitals monitor intake/ output started on vanco to cover MRSA continue with zosyn ID consult monitor cvp, ( but CVP can be elevated if patient has PE or portal hypertension) 2. elevated trop I trending down could be due to stress induced, could be due to stress from PE, r/o acs continue with heparin drip monitor aptt, watch for bleeding echo rv enlarged and function decreased duplex scan b/l lower limb will hold for ct angio as cr is elevated 3. SMILEY - cr 1.4 base line 1.1- 1.3 - could be prerenal - Avoid nephrotoxic medications - monitor creatnine 5. normocytic anemia = - hb 10.5 - Monitor hb 6. F/E/N Fluids: allowed orally Electrolytes: follow in am Nutrition: Low-sodium diet 7. Prophylaxis -on iv heparin Dispo: Continues to require ICU care. Visit type - Emergency Visit Emergency Visit: Yes ED Registration Date: 01/11/17 Care time: The patient presented to the Emergency Department on the above date and was hospitalized for further evaluation of their emergent condition. - New Patient This patient is new to me today: Yes Date on this admission: 01/12/17 - Critical Care Critical Care patient: Yes Total Critical Care Time (in minutes): 45 Critical Care Statement: The care of this patient involved high complexity decision making to prevent further life threatening deterioration of the patient 's condition and/or to evalute & treat vital organ system(s) failure or risk of failure.
[2017-01-12 07:45] LABS: BASOPHIL 0.5 % (0-2.0); EOSINOPHIL 0.1 % (0-4.5); MCH 26.3 pg (25.7-33.7); MCHC 31.4 g/dl (32.0-35.9); MEAN CELL VOLUME 83.9 fl (80-96); PLATELET COUNT 185 K/MM3 (134-434); WHITE BLOOD COUNT 11.4 K/mm3 (4.0-10.0)
[2017-01-12 08:44] LABS: MAGNESIUM 2.2 mg/dL (1.8-2.4)
--- NOTE | 2017-01-12 08:48 | PN ---
Progress Note (short form) - Note Progress Note: Cardiology Consult Dictated IMP: Probable Urosepsis Elevated TnI likely due to demand ischemia, sepsis; doubt primary [place] REC: Treatment of underlying infection Echo for EF assessment Tele Aspirin Ischemic evaluation when infection resolved
[2017-01-12] MEDS ORDERED: PT OWN MED DRAWER 7, Y5N ONE (09:30)
[2017-01-12] MEDS: MUPIROCIN 2% TOPICAL OINTMENT FOR DECOLONIZATION NS SCH ×2 (09:31→21:35)
[2017-01-12] MEDS: ASPIRIN COATED 81 MG TABLET.EC PO SCH (09:31)
[2017-01-12] MEDS: LACTOBACILLUS ACIDOPHILUS 1 EACH TAB (FP) PO SCH (09:31)
[2017-01-12] MEDS: RANITIDINE HCL 150 MG TABLET (FP) PO SCH ×2 (09:32→21:31)
[2017-01-12] MEDS: CLOPIDOGREL BISULFATE 75 MG TABLET (FP) PO SCH (09:32)
[2017-01-12] MEDS: POLYETHYLENE GLYCOL 3350 119 GM BTL PO SCH (09:32)
[2017-01-12] MEDS: MAGNESIUM OXIDE 400 MG TABLET (FP) PO SCH ×2 (09:32→21:31)
[2017-01-12] MEDS: MULTIVITAMINS (DAILY MVI) TABLET (FP) PO SCH (09:32)
--- NOTE | 2017-01-12 09:45 | CONS ---
DATE OF CONSULTATION: 01/12/2017 REQUESTING PHYSICIAN: Silvia Stover DO REASON FOR CONSULTATION: Elevated troponin. HISTORY OF PRESENT ILLNESS: This is a 62-year-old male known to our service from previous admissions in early 2016 where he had a spinal abscess with staph bacteremia status post surgical debridement and prolonged course of IV antibiotics. His past medical history is also significant for hypertension, previous CVA, hepatitis C, hyperlipidemia, neurogenic bladder. He now presents to the ER with fevers and chills, febrile to 102, with leukocytosis and positive urinalysis. It was noted that his troponin is elevated mildly. He denies chest pain, shortness of breath, chest tightness, jaw pain within the last 3 days. He has not had any cardiac symptoms in the last 2 weeks. He was brought to the ICU for treatment of sepsis and started on IV heparin. His troponins quickly trended down from 1.88 to 1.02. His EKG showed normal sinus with non-specific T-wave changes, no ST elevations. PAST MEDICAL HISTORY: Is as above. ALLERGIES: He has no known drug allergies. CURRENT MEDICATIONS: Include Tylenol p.r.n., aspirin 81 mg daily, Plavix 75 mg daily. He has received Zosyn after blood cultures. FAMILY HISTORY: Noncontributory to this presentation. SOCIAL HISTORY: Nonsmoker. PHYSICAL EXAMINATION: Vital signs: Temperature 102.7, blood pressure 108/66, O2 saturation is 100% on 2 L. HEENT: Anicteric. Neck: No bruits. Heart: S1, 2 regular, no murmurs. Chest: Clear. Abdomen: Obese, soft, nontender. Extremities: No edema. LABORATORIES: White count 11.4, hematocrit 33.9, platelets 185. INR 1.2. Sodium 145, potassium 4.2, creatinine 1.4. LFTs were normal except for a mildly elevated alkaline phosphatase at 127, CK was 500, CK index was 0.5, CK MB 2.4. Troponin 1.88, 1.39, 1.02. Urinalysis with 2+ leukocyte esterase and many bacteria, 30 white cells. ASSESSMENT: 1. Probable urosepsis. 2. Elevated troponin in the setting of sepsis, possible demand ischemia, doubt primary [place] as patient is asymptomatic from a cardiac standpoint. PLAN: 1. Fluid resuscitation and treatment of underlying infection as per critical care team. 2. Echocardiogram for assessment of EF and wall motion. 3. Telemetry. 4. Aspirin therapy. 5. Ischemic evaluation when acute infection resolves. FUNMI ROMAN M.D. [id number]
[2017-01-12] MEDS ORDERED: PIPERACILLIN/TAZOB 3.375 GM 50 ML IVPB ONE (11:08)
--- NOTE | 2017-01-12 11:25 | EKG ---
Test Reason : Blood Pressure : / mmHG Vent. Rate : 102 BPM Atrial Rate : 102 BPM P-R Int : 164 ms QRS Dur : 094 ms QT Int : 366 ms P-R-T Axes : 043 -18 057 degrees QTc Int : 477 ms POOR DATA QUALITY, INTERPRETATION MAY BE ADVERSELY AFFECTED SINUS TACHYCARDIA INCOMPLETE RBBB POSSIBLE LEFT ATRIAL ENLARGEMENT INFERIOR INFARCT , AGE UNDETERMINED ABNORMAL ECG Confirmed by FUNMI ROMAN MD ([id number]) on 01/12/2017 11:24:53 AM Referred By: Confirmed By:FUNMI ROMAN MD
[2017-01-12 11:41] LABS: MAGNESIUM 2.3 mg/dL (1.8-2.4)
--- NOTE | 2017-01-12 11:48 | PN ---
Teaching Attending Note Name of Resident: Judson Coats ATTENDING PHYSICIAN STATEMENT I saw and evaluated the patient. I reviewed the resident's note and discussed the case with the resident. I agree with the resident's findings and plan as documented. SUBJECTIVE: Patient seen and examined in the ICU. Awake and alert. No back pain. No CP or SOB. (+) Blood cultures Intake & Output 01/09/17 01/10/17 01/11/17 01/12/17 23:59 23:59 23:59 23:59 Intake Total 1400 Balance 1400 Weight 215 lb 232 lb 9 oz Last Vital Signs Temp Pulse Resp BP Pulse Ox 97.5 F L 83 20 106/84 100 01/12/17 10:00 01/12/17 10:00 01/12/17 10:00 01/12/17 10:00 01/12/17 09:00 Active Medications Acetaminophen (Ofirmev Injection -) 1,000 mg IVPB Q6H PRN PRN Reason: FEVER OR PAIN Stop: 01/12/17 23:45 Last Admin: 01/12/17 05:50 Dose: 1,000 mg Acetaminophen (Tylenol -) 325 mg PO Q4H PRN PRN Reason: PAIN Stop: 01/15/17 05:49 Aspirin (Ecotrin -) 81 mg PO DAILY [facility] Last Admin: 01/12/17 09:31 Dose: 81 mg Baclofen (Lioresal -) 10 mg PO DAILY [facility] Chlorhexidine Gluconate (Hibiclens For Decolonization -) 1 applic TP HS [facility] Clopidogrel Bisulfate (Plavix -) 75 mg PO DAILY [facility] Last Admin: 01/12/17 09:32 Dose: 75 mg Phenylephrine HCl 20,000 mcg/ (Sodium Chloride) 250 mls @ 37.5 mls/hr IVPB TITR JAYCEE; 50 MCG/MIN PRN Reason: Protocol Last Admin: 01/12/17 06:59 Dose: Not Given Vancomycin HCl 1,500 mg/ (Dextrose) 500 mls @ 250 mls/hr IVPB ONCE ONE PRN Reason: Protocol Stop: 01/12/17 13:38 Lactobacillus Acidophilus (Bacid -) 1 tab PO DAILY [facility] Last Admin: 01/12/17 09:31 Dose: 1 tab Magnesium Oxide (Mag-Ox -) 400 mg PO BID [facility] Last Admin: 01/12/17 09:32 Dose: 400 mg Multivitamins/Minerals/Vitamin C (Tab-A-Vit -) 1 tab PO DAILY [facility] Last Admin: 01/12/17 09:32 Dose: 1 tab Mupirocin (Bactroban Ointment (For Decolonization) -) 1 applic NS BID [facility] Stop: 01/17/17 09:59 Last Admin: 01/12/17 09:31 Dose: 1 applic Oxycodone HCl (Roxicodone -) 5 mg PO Q4H PRN PRN Reason: PAIN Piperacillin Sod/Tazobactam Sod (Zosyn 4.5gm Ivpb (Pre-Docked)) 4.5 gm IVPB Q8H -IV [facility] Polyethylene Glycol (Miralax (For Daily Use) -) 17 gm PO DAILY [facility] Last Admin: 01/12/17 09:32 Dose: 17 grams Ranitidine HCl (Zantac -) 150 mg PO BID [facility] Last Admin: 01/12/17 09:32 Dose: 150 mg Sodium Chloride (Normal Saline -) 500 ml IV Q20M PRN PRN Reason: MAP<65mm Hg OR SBP <90 Last Admin: 01/12/17 02:50 Dose: 500 ml Constitutional: Yes: Awake and alert, Obese Eyes: Yes: (-) Pallor HENT: Yes: Normocephalic Neck: Yes: Supple Cardiovascular: Yes: Regular Rate and Rhythm Respiratory: Yes: Clear Gastrointestinal: Yes: Obese, soft, (+) BS Renal/: Yes: Incontinence Musculoskeletal: Yes: WNL Edema: No Peripheral Pulses WNL: Yes Integumentary: Yes: WNL Neurological: Yes: WNL, Alert, Oriented ...Motor Strength: RUE (Chronic rt side weakness), RLE Labs: Laboratory Results - last 24 hr 01/11/17 01/11/17 01/11/17 16:50 19:40 19:40 WBC Cancelled Corrected WBC (auto) Cancelled RBC Cancelled Hgb Cancelled Hct Cancelled MCV Cancelled MCHC Cancelled RDW Cancelled Plt Count Cancelled MPV Cancelled Neutrophils % Cancelled Lymphocytes % Cancelled Monocytes % Cancelled Eosinophils % Cancelled Basophils % Cancelled Differential Comment Cancelled Smudge Cells Cancelled Platelet Estimate Cancelled Platelet Comment Cancelled RBC Morphology Cancelled INR 1.28 H PTT (Actin FS) 21.1 L D VBG pH POC VBG pCO2 POC VBG pO2 Mixed VBG HCO3 Sodium Potassium Chloride Carbon Dioxide Anion Gap BUN Creatinine Creat Clearance w eGFR Random Glucose Lactic Acid Calcium Magnesium Cancelled Total Bilirubin AST ALT Alkaline Phosphatase Creatine Kinase Creatine Kinase Index CK-MB (CK-2) CK-MB (CK-2) Rel Index Troponin I Total Protein Albumin Urine Color Urine Appearance Urine pH Ur Specific [place] Urine Protein Urine Glucose (UA) Urine Ketones Urine Blood Urine Nitrite Urine Bilirubin Urine Urobilinogen Ur Leukocyte Esterase Urine RBC Urine WBC Urine Bacteria Urine Mucus Urine Yeast Blood Type Antibody Screen 01/11/17 01/11/17 01/11/17 19:40 19:40 19:50 WBC Corrected WBC (auto) RBC Hgb Hct MCV MCHC RDW Plt Count MPV Neutrophils % Lymphocytes % Monocytes % Eosinophils % Basophils % Differential Comment Smudge Cells Platelet Estimate Platelet Comment RBC Morphology INR PTT (Actin FS) VBG pH POC VBG pCO2 POC VBG pO2 Mixed VBG HCO3 Sodium 142 Potassium 3.8 Chloride 107 Carbon Dioxide 23 D Anion Gap 12 BUN 25 H Creatinine 1.3 D Creat Clearance w eGFR 55.75 Random Glucose 126 H D Lactic Acid 2.013 H* Calcium 7.9 L Magnesium 2.2 Total Bilirubin 0.6 AST 33 D ALT 21 Alkaline Phosphatase 131 H D Creatine Kinase 500 H D Creatine Kinase Index 0.5 CK-MB (CK-2) 2.448 CK-MB (CK-2) Rel Index Troponin I 1.88 H* D Total Protein 7.2 Albumin 3.0 L Urine Color Urine Appearance Urine pH Ur Specific [place] Urine Protein Urine Glucose (UA) Urine Ketones Urine Blood Urine Nitrite Urine Bilirubin Urine Urobilinogen Ur Leukocyte Esterase Urine RBC Urine WBC Urine Bacteria Urine Mucus Urine Yeast Blood Type A POSITIVE Antibody Screen Negative 01/11/17 01/11/17 01/11/17 19:50 20:10 20:17 WBC Corrected WBC (auto) RBC Hgb Hct MCV MCHC RDW Plt Count MPV Neutrophils % Lymphocytes % Monocytes % Eosinophils % Basophils % Differential Comment Smudge Cells Platelet Estimate Platelet Comment RBC Morphology INR PTT (Actin FS) VBG pH 7.36 POC VBG pCO2 41.4 POC VBG pO2 35.9 Mixed VBG HCO3 22.6 Sodium Potassium Chloride Carbon Dioxide Anion Gap BUN Creatinine Creat Clearance w eGFR Random Glucose Lactic Acid Calcium Magnesium Total Bilirubin AST ALT Alkaline Phosphatase Creatine Kinase Creatine Kinase Index CK-MB (CK-2) CK-MB (CK-2) Rel Index Cancelled Troponin I Total Protein Albumin Urine Color Yellow Urine Appearance Slcloudy Urine pH 5.0 Ur Specific [place] 1.014 Urine Protein 1+ H Urine Glucose (UA) Negative Urine Ketones Negative Urine Blood 3+ H Urine Nitrite Negative Urine Bilirubin Negative Urine Urobilinogen Negative Ur Leukocyte Esterase 2+ H Urine RBC 123 Urine WBC 30 Urine Bacteria Many Urine Mucus Rare Urine Yeast Many Blood Type Antibody Screen 01/11/17 01/11/17 01/12/17 22:04 22:04 02:00 WBC 11.1 H Corrected WBC (auto) RBC 3.97 L Hgb 10.5 L Hct 32.9 L MCV 82.8 MCHC 31.8 L RDW 14.8 Plt Count 185 D MPV 7.9 D Neutrophils % 83.4 H D Lymphocytes % 8.8 D Monocytes % 7.5 Eosinophils % 0.0 D Basophils % 0.3 Differential Comment Smudge Cells Platelet Estimate Platelet Comment RBC Morphology INR PTT (Actin FS) VBG pH POC VBG pCO2 POC VBG pO2 Mixed VBG HCO3 Sodium Potassium Chloride Carbon Dioxide Anion Gap BUN Creatinine Creat Clearance w eGFR Random Glucose Lactic Acid 1.393 Calcium Magnesium Total Bilirubin AST ALT Alkaline Phosphatase Creatine Kinase Creatine Kinase Index CK-MB (CK-2) CK-MB (CK-2) Rel Index Troponin I 1.39 H* Total Protein Albumin Urine Color Urine Appearance Urine pH Ur Specific [place] Urine Protein Urine Glucose (UA) Urine Ketones Urine Blood Urine Nitrite Urine Bilirubin Urine Urobilinogen Ur Leukocyte Esterase Urine RBC Urine WBC Urine Bacteria Urine Mucus Urine Yeast Blood Type Antibody Screen 01/12/17 01/12/17 01/12/17 05:15 05:15 05:30 WBC 11.4 H Corrected WBC (auto) RBC 4.04 Hgb 10.6 L Hct 33.9 L MCV 83.9 MCHC 31.4 L RDW 15.0 Plt Count 185 MPV 8.0 Neutrophils % 78.0 Lymphocytes % 11.9 D Monocytes % 9.5 Eosinophils % 0.1 D Basophils % 0.5 Differential Comment Smudge Cells Platelet Estimate Platelet Comment RBC Morphology INR PTT (Actin FS) VBG pH POC VBG pCO2 POC VBG pO2 Mixed VBG HCO3 Sodium 145 Potassium 4.2 Chloride 112 H Carbon Dioxide 24 Anion Gap 9 BUN 26 H Creatinine 1.4 H Creat Clearance w eGFR 51.02 Random Glucose 139 H Lactic Acid Calcium 7.6 L Magnesium Total Bilirubin 0.5 AST 36 ALT 25 Alkaline Phosphatase 127 H Creatine Kinase Creatine Kinase Index CK-MB (CK-2) CK-MB (CK-2) Rel Index Troponin I 1.02 H* Total Protein 6.9 Albumin 2.9 L Urine Color Urine Appearance Urine pH Ur Specific [place] Urine Protein Urine Glucose (UA) Urine Ketones Urine Blood Urine Nitrite Urine Bilirubin Urine Urobilinogen Ur Leukocyte Esterase Urine RBC Urine WBC Urine Bacteria Urine Mucus Urine Yeast Blood Type Antibody Screen 01/12/17 08:10 WBC Corrected WBC (auto) RBC Hgb Hct MCV MCHC RDW Plt Count MPV Neutrophils % Lymphocytes % Monocytes % Eosinophils % Basophils % Differential Comment Smudge Cells Platelet Estimate Platelet Comment RBC Morphology INR PTT (Actin FS) 46.0 H D VBG pH POC VBG pCO2 POC VBG pO2 Mixed VBG HCO3 Sodium Potassium Chloride Carbon Dioxide Anion Gap BUN Creatinine Creat Clearance w eGFR Random Glucose Lactic Acid Calcium Magnesium Total Bilirubin AST ALT Alkaline Phosphatase Creatine Kinase Creatine Kinase Index CK-MB (CK-2) CK-MB (CK-2) Rel Index Troponin I Total Protein Albumin Urine Color Urine Appearance Urine pH Ur Specific [place] Urine Protein Urine Glucose (UA) Urine Ketones Urine Blood Urine Nitrite Urine Bilirubin Urine Urobilinogen Ur Leukocyte Esterase Urine RBC Urine WBC Urine Bacteria Urine Mucus Urine Yeast Blood Type Antibody Screen Assessment/Plan Sepsis due to a possible source No clear indication that there is a recurrence of infection in the spine HTN HPL CVA History of a prolonged illness due to a spinal abscess Neurogenic bladder (+) Troponin -> Demand Ischemia SMILEY IVF ABX per ID Follow cultures O2 as needed Cardiology evaluation noted Follow lactic level Antiplatelets Statin Hold antiHTN ICU monitoring Dr Vieyra Critical care time spent in reviewing chart, evaluating patient and formulating plan 36 min
--- NOTE | 2017-01-12 12:14 | PN ---
Physical Exam: SUBJECTIVE: Patient seen and examined. States he feels "much better" than he did yesterday. Current Medications Generic Name Dose Route Start Last Admin Trade Name Freq PRN Reason Stop Dose Admin Acetaminophen 1,000 mg 01/12/17 05:44 01/12/17 05:50 Ofirmev Injection - IVPB 01/12/17 23:45 1,000 mg Q6H PRN Administration FEVER OR PAIN Acetaminophen 325 mg 01/12/17 05:50 Tylenol - PO 01/15/17 05:49 Q4H PRN PAIN Aspirin 81 mg 01/12/17 10:00 01/12/17 09:31 Ecotrin - PO 81 mg DAILY JAYCEE Administration Baclofen 10 mg 01/12/17 21:00 Lioresal - PO DAILY [facility] Chlorhexidine Gluconate 1 applic 01/12/17 22:00 Hibiclens For Decolonization - TP HS [facility] Clopidogrel Bisulfate 75 mg 01/12/17 10:00 01/12/17 09:32 Plavix - PO 75 mg DAILY JAYCEE Administration Heparin Sodium (Porcine) 1,000 unit 01/12/17 12:47 Heparin - IVPUSH PRN PRN Heparin Heparin Sodium (Porcine) 5,000 unit 01/12/17 12:47 Heparin - IVPUSH PRN PRN Heparin Vancomycin HCl 1,500 mg/ 500 mls @ 250 mls/hr 01/12/17 12:45 Dextrose IVPB 01/12/17 14:44 ONCE ONE Protocol Heparin Sodium (Porcine) 25, 500 mls @ 20 mls/hr 01/12/17 13:00 000 unit/ Sodium Chloride IV TITR JAYCEE Protocol 1,000 UNIT/HR Lactobacillus Acidophilus 1 tab 01/12/17 10:00 01/12/17 09:31 Bacid - PO 1 tab DAILY JAYCEE Administration Magnesium Oxide 400 mg 01/12/17 10:00 01/12/17 09:32 Mag-Ox - PO 400 mg BID JAYCEE Administration Multivitamins/Minerals/Vitamin C 1 tab 01/12/17 10:00 01/12/17 09:32 Tab-A-Vit - PO 1 tab DAILY JAYCEE Administration Mupirocin 1 applic 01/12/17 10:00 01/12/17 09:31 Bactroban Ointment (For Decolonization) - NS 01/17/17 09:59 1 applic BID JAYCEE Administration Oxycodone HCl 5 mg 01/12/17 05:50 Roxicodone - PO Q4H PRN PAIN Piperacillin Sod/Tazobactam Sod 4.5 gm 01/12/17 13:00 Zosyn 4.5gm Ivpb (Pre-Docked) IVPB Q8H-IV JAYCEE Polyethylene Glycol 17 gm 01/12/17 10:00 01/12/17 09:32 Miralax (For Daily Use) - PO 17 grams DAILY JAYCEE Administration Ranitidine HCl 150 mg 01/12/17 10:00 01/12/17 09:32 Zantac - PO 150 mg BID JAYCEE Administration OBJECTIVE: Vital Signs Period Temp Pulse Resp BP Sys/Conner Pulse Ox Last 24 Hr 97.1 F-102.7 F 80-116 18-26 87-108/49-84 100-100 GENERAL: The patient is awake, alert, and fully oriented, in no acute distress. HEAD: Normal with no signs of trauma. EYES: PERRLA, right lateral gaze, sclera anicteric, conjunctiva clear. No ptosis. ENT: Ears normal, nares patent, oropharynx clear without exudates, moist mucous membranes. NECK: Trachea midline, full range of motion, supple. LUNGS: Breath sounds equal, clear to auscultation bilaterally, no wheezes, no crackles, no accessory muscle use. HEART: Regular rate and rhythm, S1, S2 without murmur, rub or gallop. ABDOMEN: Soft, nontender, nondistended, normoactive bowel sounds, no guarding, no rebound, no hepatosplenomegaly, no masses. EXTREMITIES: 2+ pulses, warm, well-perfused, no edema. NEUROLOGICAL: Cranial nerves II through XII grossly intact. Normal speech, gait not observed. Muscle strength 5/5 LLE and LUE, 4/5 RLE, 3/5 RUE PSYCH: Normal mood, normal affect. SKIN: healed surgical scar to left palmar surface CBCD WBC 11.4 K/mm3 (4.0-10.0) H 01/12/17 05:30 RBC 4.04 M/mm3 (4.00-5.60) 01/12/17 05:30 Hgb 10.6 GM/dL (11.7-16.9) L 01/12/17 05:30 Hct 33.9 % (35.4-49) L 01/12/17 05:30 MCV 83.9 fl (80-96) 01/12/17 05:30 MCHC 31.4 g/dl (32.0-35.9) L 01/12/17 05:30 RDW 15.0 % (11.9-15.9) 01/12/17 05:30 Plt Count 185 K/MM3 (134-434) 01/12/17 05:30 MPV 8.0 fl (7.5-11.1) 01/12/17 05:30 CMP Sodium 145 mmol/L (136-145) 01/12/17 05:15 Potassium 4.2 mmol/L (3.5-5.1) 01/12/17 05:15 Chloride 112 mmol/L (98-107) H 01/12/17 05:15 Carbon Dioxide 24 mmol/L (21-32) 01/12/17 05:15 Anion Gap 9 (8-16) 01/12/17 05:15 BUN 26 mg/dL (7-18) H 01/12/17 05:15 Creatinine 1.4 mg/dL (0.7-1.3) H 01/12/17 05:15 Creat Clearance w eGFR 51.02 (>60) 01/12/17 05:15 Random Glucose 139 mg/dL (74-106) H 01/12/17 05:15 Calcium 7.6 mg/dL (8.5-10.1) L 01/12/17 05:15 Total Bilirubin 0.5 mg/dL (0.2-1.0) 01/12/17 05:15 AST 36 U/L (15-37) 01/12/17 05:15 ALT 25 U/L (12-78) 01/12/17 05:15 Alkaline Phosphatase 127 U/L (45-117) H 01/12/17 05:15 Total Protein 6.9 g/dl (6.4-8.2) 01/12/17 05:15 Albumin 2.9 g/dl (3.4-5.0) L 01/12/17 05:15 CARDIAC ENZYMES Creatine Kinase 500 IU/L (39-308) H D 01/11/17 19:50 Troponin I 1.02 ng/ml (0.00-0.05) H* 01/12/17 05:15 Microbiology 01/11/17 19:50 Blood - Peripheral Venous Blood Culture - Preliminary Pending Organism 01/11/17 19:40 Nasopharyngeal Swab Influenza Types A,B Antigen ([facility]) - Final 01/11/17 19:40 Nasopharyngeal Swab - Final IMAGING: CXR 01/11 - No acute lung disease present EKG 01/11 - Sinus tachycardia, possible left atrial enlargement, inferior infarct - age undetermined EKG 01/12 - Normal sinus rhythm, prolonged QT interval, T-waves abnormal - consider anterior infarct ASSESSMENT/PLAN: 62 year old male with PMH HTN, HLD, CVA with residual right- sided weakness, 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 1. Severe sepsis - Likely secondary to UTI and gram neg bacilli bacteremia - Pt with temp of 102.7, HR 120, WBC 11.1 with left shift - Lactic acid resolved - Still with hypotension requiring fluid bolus, will consider vasopressors if worsening hypotension - BC positive for gram neg bacilli - organism pending - Continue Zosyn - F/u ID consult 3. R/o ACS - Likely demand ischemia secondary to hypotension - Troponin neg x 3 - Appreciate cardiology consult - Plan further cards w/u once infection resolved - ECHO with RV dilation, question for PE which could explain tachycardia and fever. Lower extremity doppler negative for DVT. F/u Chest CTA once creatinine improves. Started on Heparin gtt 4. SMILEY - Creatinine 1.4 today (baseline 0.7-1.1 on previous hospital admissions) - BUN/Cr ratio 18, though likely due to relative hypotension - Avoid nephrotoxic medications - Trend 5. Anemia - H/H 10.5/32.9 - Baseline Hgb 9 from previous admissions - Monitor 6. F/E/N Fluids: Encourage PO intake Electrolytes: Monitor and replace as needed Nutrition: Low-sodium diet 7. Prophylaxis - Will start Heparin 5,000 SQ TID Dispo: Continues to require ICU care. FULL CODE Visit type - Emergency Visit Emergency Visit: Yes ED Registration Date: 01/11/17 Care time: The patient presented to the Emergency Department on the above date and was hospitalized for further evaluation of their emergent condition. - New Patient This patient is new to me today: Yes Date on this admission: 04/28/17 - Critical Care Critical Care patient: Yes Total Critical Care Time (in minutes): 35 Critical Care Statement: The care of this patient involved high complexity decision making to prevent further life threatening deterioration of the patient 's condition and/or to evalute & treat vital organ system(s) failure or risk of failure.
[2017-01-12] MEDS ORDERED: VANCOMYCIN 1,500 MG in DEXTROSE 5%-WATER - 500 ML IVPB ONE (12:45)
[2017-01-12] MEDS ORDERED: HEPARIN NA (PORCINE) 5,000 UNITS/ML 1ML VIAL IVPUSH PRN (12:47)
[2017-01-12] MEDS: ACETAMINOPHEN 325 MG TABLET (FP) PO PRN ×2 (12:58→21:31)
[2017-01-12] MEDS ORDERED: HEPARIN INFUSION - 500 ML IVPB ONE (12:58)
[2017-01-12] MEDS ORDERED: PIPERACILLIN/TAZOB 4.5 GM/100 ML PRE-DOCKED IVPB SCH (13:00)
[2017-01-12] MEDS: HEPARIN - 25,000 UNIT in SODIUM CHLORIDE 495 ML IV SCH (13:06)
[2017-01-12] MEDS: oxyCODONE HCL 5 MG TABLET PO PRN ×2 (14:17→21:31)
[2017-01-12 14:50] LABS: MCH 26.8 pg (25.7-33.7); MCHC 32.2 g/dl (32.0-35.9); MEAN CELL VOLUME 83.2 fl (80-96); MEAN PLT VOLUME 8.1 fl (7.5-11.1); PLATELET COUNT 163 K/MM3 (134-434); WHITE BLOOD COUNT 8.6 K/mm3 (4.0-10.0)
--- NOTE | 2017-01-12 15:42 | CONSULT ---
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 He was recently discharged home after an extended stay in rehab. patient was spiking fever in the ed patient was worked up and started on iv abx pateint was found by occupational 101.7 and BP of 90/60. Baseline BP is 120's systolic. 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 Cardio/Vascular: Yes: HTN, Hyperlipdemia Renal/: Yes: Neurogenic Bladder, UTI Musculoskeletal: Yes: Other (RLE weakness) - Past Surgical History Past Surgical History: Yes: None, Laminectomy - Alcohol/Substance Use Hx Alcohol Use: No History of Substance Use: reports: None - Smoking History Smoking history: Never smoked Have you smoked in the past 12 months: No If you are a former smoker, when did you quit?: 20 years ago - Social History ADL: Independent History of Recent Travel: No Home Medications - Allergies Allergies/Adverse Reactions: Allergies Allergy/AdvReac Type Severity Reaction Status Date / Time No Known Allergies Allergy Verified 01/11/17 17:56 - Home Medications Home Medications: Ambulatory Orders Aspirin [Aspirin EC] 81 mg PO DAILY 10/16/15 Baclofen 10 mg PO HS 10/16/15 Multivitamins [Multivit ([facility] Formulary)] 1 tab PO DAILY 10/16/15 Acetaminophen [Tylenol .Regular Strength -] 650 mg PO Q6H PRN #0 tablet Amino Acids/Protein Hydrolys [Prostat Sugar-Free Packet -] 30 ml PO BID@0800, 1730 packet 12/22/15 Atenolol [Tenormin -] 50 mg PO DAILY tablet 12/22/15 Cefazolin 2 gm/D5w [Ancef 2 gm Premixed Ivpb -] 50 ml IVPB Q8H-IV #51 ml Enoxaparin [Lovenox -] 40 mg SQ DAILY disp.syrin 12/22/15 Lactobacillus Acidophilus [Bacid -] 1 tab PO DAILY tab 12/22/15 Losartan Potassium [Cozaar -] 50 mg PO DAILY tablet 12/22/15 Magnesium Oxide [Mag-Ox -] 400 mg PO BID tablet 12/22/15 Potassium Chloride Oral Soln [KCl Oral Solution -] 20 meq PO DAILY cup Ranitidine [Zantac -] 150 mg PO BID tablet 12/22/15 Review of Systems - Review of Systems Constitutional: reports: Chills, Fever Eyes: reports: No Symptoms HENT: reports: No Symptoms Neck: reports: No Symptoms Cardiovascular: reports: No Symptoms Respiratory: reports: No Symptoms Gastrointestinal: reports: No Symptoms Genitourinary: reports: No Symptoms Musculoskeletal: reports: No Symptoms Integumentary: reports: No Symptoms Neurological: reports: No Symptoms Endocrine: reports: No Symptoms Hematology/Lymphatic: reports: No Symptoms Psychiatric: reports: No Symptoms Physical Exam Vital Signs: Vital Signs Temperature 102 F H 01/12/17 13:00 Pulse Rate 102 H 01/12/17 13:00 Respiratory Rate 20 01/12/17 13:00 Blood Pressure 103/64 01/12/17 12:00 O2 Sat by Pulse Oximetry (%) 100 01/12/17 15:39 Constitutional: Yes: No Distress, Calm Eyes: Yes: Conjunctiva Clear Neck: Yes: Supple, Trachea Midline Cardiovascular: Yes: Regular Rate and Rhythm Respiratory: Yes: Regular, CTA Bilaterally Gastrointestinal: Yes: Normal Bowel Sounds, Soft Musculoskeletal: Yes: Other Extremities: Yes: Other Neurological: Yes: Alert, Oriented, Weakness (rt sided with tingling) Psychiatric: Yes: Alert, Oriented Labs: CBC, BMP 01/12/17 13:00 01/12/17 05:15 Imaging - Results Chest X-ray: Report Reviewed, Image Reviewed Other: Report Reviewed, Image Reviewed Assessment/Plan this patient is a very fragile patient i think his bacteremia is coming from the urinary tract.also i see that patient is having incontinence patient is started on zosyn sepsis josé luis h/o of spinal abscess incontinence increased trop fever leukocytosis plan will continue zosyn await for identification of the bacteria close watch on the fevers if it continues inspite of abx torres scan also watch on wbc cc time 45 min
[2017-01-12] MEDS: PIPERACILLIN/TAZOB 3.375 GM 50 ML IVPB SCH (17:09)
[2017-01-12] MEDS: HEPARIN NA (PORCINE) 5,000 UNITS/ML 1ML VIAL IVPUSH PRN (20:49)
[2017-01-12] MEDS ORDERED: BACLOFEN 10 MG TABLET (FP) PO SCH (21:00)
[2017-01-12] MEDS: BACLOFEN 10 MG TABLET (FP) PO SCH (21:31)
[2017-01-12] MEDS: CHLORHEXIDINE GLUCONATE 4% CLEANSER FOR DECOLONIZATION TP SCH (21:35)
[2017-01-12] MEDS ORDERED: LORAZEPAM CARPU-JECT 2 MG/ML DISP.SYRIN ONE (23:18)
[2017-01-12] MEDS ORDERED: morphine CARPU-JECT 4 MG/1 ML DISP.SYRIN ONE (23:27)
[2017-01-12] MEDS ORDERED: morphine CARPU-JECT 4 MG/1 ML DISP.SYRIN IVPUSH ONE (23:27)
[2017-01-12] MEDS ORDERED: METOPROLOL TARTRATE 5 MG/5 ML VIAL ONE (23:44)
[2017-01-12] MEDS ORDERED: METOPROLOL TARTRATE 5 MG/5 ML VIAL IVPUSH ONE (23:44)
[2017-01-13] MEDS: PIPERACILLIN/TAZOB 3.375 GM 50 ML IVPB SCH ×3 (01:10→17:33)
[2017-01-13] MEDS: HEPARIN NA (PORCINE) 5,000 UNITS/ML 1ML VIAL IVPUSH PRN (04:15)
[2017-01-13 06:57] LABS: BASOPHIL 0.3 % (0-2.0); EOSINOPHIL 0.1 % (0-4.5); MCH 26.2 pg (25.7-33.7); MCHC 31.5 g/dl (32.0-35.9); MEAN CELL VOLUME 83.2 fl (80-96); MEAN PLT VOLUME 8.7 fl (7.5-11.1); NEUTROPHILS 86.4 % (42.8-82.8); PLATELET COUNT 163 K/MM3 (134-434); RDW 15.2 % (11.9-15.9); WHITE BLOOD COUNT 10.3 K/mm3 (4.0-10.0)
[2017-01-13 07:41] LABS: CALCIUM 7.7 mg/dL (8.5-10.1); COCKROFT - GAULT 85.65; CREATININE 1.3 mg/dL (0.7-1.3)
--- NOTE | 2017-01-13 08:50 | PN ---
Progress Note (short form) - Note Progress Note: Patient seen and examined in the ICU. Awake and alert. No back pain. No CP or SOB. Currently on IV Heparin. Fever of 106 overnight. Intake & Output 01/10/17 01/11/17 01/12/17 01/13/17 23:59 23:59 23:59 23:59 Intake Total 3050 358 Output Total 400 Balance 2650 358 Weight 215 lb 232 lb 9 oz Last Vital Signs Temp Pulse Resp BP Pulse Ox 98.3 F 80 18 91/67 100 01/13/17 06:00 01/13/17 08:00 01/13/17 08:00 01/13/17 08:00 01/12/17 21:00 Active Medications Acetaminophen (Tylenol -) 325 mg PO Q4H PRN PRN Reason: PAIN Stop: 01/15/17 05:49 Last Admin: 01/12/17 21:31 Dose: 325 mg Aspirin (Ecotrin -) 81 mg PO DAILY [facility] Last Admin: 01/12/17 09:31 Dose: 81 mg Baclofen (Lioresal -) 10 mg PO DAILY@2100 [facility] Last Admin: 01/12/17 21:31 Dose: 10 mg Chlorhexidine Gluconate (Hibiclens For Decolonization -) 1 applic TP HS [facility] Last Admin: 01/12/17 21:35 Dose: 1 applic Clopidogrel Bisulfate (Plavix -) 75 mg PO DAILY [facility] Last Admin: 01/12/17 09:32 Dose: 75 mg Heparin Sodium (Porcine) (Heparin -) 1,000 unit IVPUSH PRN PRN PRN Reason: Heparin Last Admin: 01/13/17 04:15 Dose: 1,000 unit Heparin Sodium (Porcine) (Heparin -) 5,000 unit IVPUSH PRN PRN PRN Reason: Heparin Heparin Sodium (Porcine) 25, (000 unit/ Sodium Chloride) 500 mls @ 20 mls/hr IV TITR JAYCEE; 1,000 UNIT/HR PRN Reason: Protocol Last Titration: 01/13/17 04:15 Dose: 1,200 unit/hr Piperacillin Sod/Tazobactam Sod (Zosyn 3.375gm Ivpb (Pre-Docked)) 50 mls @ 100 mls/hr IVPB Q8H-IV JAYCEE PRN Reason: Protocol Last Admin: 01/13/17 01:10 Dose: 100 mls/hr Lactobacillus Acidophilus (Bacid -) 1 tab PO DAILY [facility] Last Admin: 01/12/17 09:31 Dose: 1 tab Magnesium Oxide (Mag-Ox -) 400 mg PO BID [facility] Last Admin: 01/12/17 21:31 Dose: 400 mg Multivitamins/Minerals/Vitamin C (Tab-A-Vit -) 1 tab PO DAILY [facility] Last Admin: 01/12/17 09:32 Dose: 1 tab Mupirocin (Bactroban Ointment (For Decolonization) -) 1 applic NS BID [facility] Stop: 01/17/17 09:59 Last Admin: 01/12/17 21:35 Dose: 1 applic Oxycodone HCl (Roxicodone -) 5 mg PO Q4H PRN PRN Reason: PAIN Last Admin: 01/12/17 21:31 Dose: 5 mg Polyethylene Glycol (Miralax (For Daily Use) -) 17 gm PO DAILY [facility] Last Admin: 01/12/17 09:32 Dose: 17 grams Ranitidine HCl (Zantac -) 150 mg PO BID [facility] Last Admin: 01/12/17 21:31 Dose: 150 mg Constitutional: Yes: Awake and alert, Obese Eyes: Yes: (-) Pallor HENT: Yes: Normocephalic Neck: Yes: Supple Cardiovascular: Yes: Regular Rate and Rhythm Respiratory: Yes: Clear Gastrointestinal: Yes: Obese, soft, (+) BS Renal/: Yes: Incontinence Musculoskeletal: Yes: WNL Edema: No Peripheral Pulses WNL: Yes Integumentary: Yes: WNL Neurological: Yes: WNL, Alert, Oriented ...Motor Strength: RUE (Chronic rt side weakness), RLE Labs: Laboratory Results - last 24 hr 01/11/17 01/12/17 01/12/17 19:50 05:15 08:10 WBC RBC Hgb Hct MCV MCHC RDW Plt Count MPV Neutrophils % Lymphocytes % Monocytes % Eosinophils % Basophils % PTT (Actin FS) 46.0 H D Sodium Potassium Chloride Carbon Dioxide Anion Gap BUN Creatinine Random Glucose Calcium Magnesium 2.2 2.3 Random Vancomycin 01/12/17 01/12/17 01/12/17 13:00 13:00 18:45 WBC 8.6 RBC 3.70 L Hgb 9.9 L Hct 30.7 L MCV 83.2 MCHC 32.2 RDW 15.0 Plt Count 163 MPV 8.1 Neutrophils % Lymphocytes % Monocytes % Eosinophils % Basophils % PTT (Actin FS) 31.1 D 43.8 H D Sodium Potassium Chloride Carbon Dioxide Anion Gap BUN Creatinine Random Glucose Calcium Magnesium Random Vancomycin 01/13/17 01/13/17 01/13/17 03:00 05:50 05:50 WBC 10.3 H RBC 3.52 L Hgb 9.2 L Hct 29.3 L MCV 83.2 MCHC 31.5 L RDW 15.2 Plt Count 163 MPV 8.7 Neutrophils % 86.4 H Lymphocytes % 6.0 L D Monocytes % 7.2 Eosinophils % 0.1 Basophils % 0.3 PTT (Actin FS) 45.1 H Sodium 141 Potassium 3.8 Chloride 109 H Carbon Dioxide 24 Anion Gap 8 BUN 25 H Creatinine 1.3 Random Glucose 143 H Calcium 7.7 L Magnesium Random Vancomycin 5.198 Assessment/Plan Sepsis due to a possible source No clear indication that there is a recurrence of infection in the spine HTN HPL CVA History of a prolonged illness due to a spinal abscess Neurogenic bladder (+) Troponin -> Demand Ischemia SMILEY IVF ABX per ID -> if he continues to spike may need to broaden ABX Follow cultures O2 as needed Antiplatelets Statin Hold antiHTN meds ICU monitoring Dr Vieyra Critical care time spent in reviewing chart, evaluating patient and formulating plan 36 min
--- NOTE | 2017-01-13 09:44 | PN ---
Progress Note, Physician History of Present Illness: The patient is a 61 year old male, with a significant past medical history of hypertension, hyperlipidemia, CVA (with residual right sided weakness) and a two month admission to this hospital last year (10/16/2015 - 12/22/2015), who presents to the emergency department via EMS with a fever. The patient states that he had a routine visit with his occupational therapist earlier today, during which his vitals were taken. He reports that although he did not feel as though he had a fever, his temperature was recorded to be 101.7 degrees. His occupational therapist subsequently called his PMD, who advised that he go to the ED for further evaluation. The patient denies chest pain or shortness of breath. The patient denies chills, cough, nausea, vomiting, diarrhea, melena/ bpr or dysuria. The patient denies back pain. The patient uses a wheelchair at baseline. The patients is at the bedside. Allergies: None reported. Past Surgical History: Laminectomy T9-S1 with debridement (10/22/2015); Drainage of paraspinal and epidural abscesses Social History: Non smoker. Denies alcohol or drug use. PCP: Dr. Milind Leos - Current Medication List Current Medications: Active Medications Acetaminophen (Tylenol -) 325 mg PO Q4H PRN PRN Reason: PAIN Stop: 01/15/17 05:49 Last Admin: 01/12/17 21:31 Dose: 325 mg Aspirin (Ecotrin -) 81 mg PO DAILY [facility] Last Admin: 01/12/17 09:31 Dose: 81 mg Baclofen (Lioresal -) 10 mg PO DAILY@2100 [facility] Last Admin: 01/12/17 21:31 Dose: 10 mg Chlorhexidine Gluconate (Hibiclens For Decolonization -) 1 applic TP HS [facility] Last Admin: 01/12/17 21:35 Dose: 1 applic Clopidogrel Bisulfate (Plavix -) 75 mg PO DAILY [facility] Last Admin: 01/12/17 09:32 Dose: 75 mg Heparin Sodium (Porcine) (Heparin -) 1,000 unit IVPUSH PRN PRN PRN Reason: Heparin Last Admin: 01/13/17 04:15 Dose: 1,000 unit Heparin Sodium (Porcine) (Heparin -) 5,000 unit IVPUSH PRN PRN PRN Reason: Heparin Heparin Sodium (Porcine) 25, (000 unit/ Sodium Chloride) 500 mls @ 20 mls/hr IV TITR JAYCEE; 1,000 UNIT/HR PRN Reason: Protocol Last Titration: 01/13/17 04:15 Dose: 1,200 unit/hr Piperacillin Sod/Tazobactam Sod (Zosyn 3.375gm Ivpb (Pre-Docked)) 50 mls @ 100 mls/hr IVPB Q8H-IV JAYCEE PRN Reason: Protocol Last Admin: 01/13/17 01:10 Dose: 100 mls/hr Lactobacillus Acidophilus (Bacid -) 1 tab PO DAILY [facility] Last Admin: 01/12/17 09:31 Dose: 1 tab Magnesium Oxide (Mag-Ox -) 400 mg PO BID [facility] Last Admin: 01/12/17 21:31 Dose: 400 mg Multivitamins/Minerals/Vitamin C (Tab-A-Vit -) 1 tab PO DAILY [facility] Last Admin: 01/12/17 09:32 Dose: 1 tab Mupirocin (Bactroban Ointment (For Decolonization) -) 1 applic NS BID [facility] Stop: 01/17/17 09:59 Last Admin: 01/12/17 21:35 Dose: 1 applic Oxycodone HCl (Roxicodone -) 5 mg PO Q4H PRN PRN Reason: PAIN Last Admin: 01/12/17 21:31 Dose: 5 mg Polyethylene Glycol (Miralax (For Daily Use) -) 17 gm PO DAILY [facility] Last Admin: 01/12/17 09:32 Dose: 17 grams Ranitidine HCl (Zantac -) 150 mg PO BID [facility] Last Admin: 01/12/17 21:31 Dose: 150 mg - Objective Vital Signs: Vital Signs Temperature 98.3 F 01/13/17 06:00 Pulse Rate 80 01/13/17 08:00 Respiratory Rate 18 01/13/17 08:00 Blood Pressure 91/67 01/13/17 08:00 O2 Sat by Pulse Oximetry (%) 100 01/12/17 21:00 Eyes: Yes: WNL, Conjunctiva Clear, EOM Intact HENT: Yes: WNL, Atraumatic, Normocephalic Neck: Yes: WNL, Supple, Trachea Midline Cardiovascular: Yes: WNL, Regular Rate and Rhythm Respiratory: Yes: WNL, Regular, CTA Bilaterally Gastrointestinal: Yes: WNL, Normal Bowel Sounds Genitourinary: Yes: WNL Musculoskeletal: Yes: WNL Extremities: Yes: WNL Edema: No Integumentary: Yes: WNL Neurological: Yes: WNL, Alert, Oriented ...Motor Strength: WNL Psychiatric: Yes: WNL Labs: CBC, BMP 01/13/17 05:50 01/13/17 05:50 INR, PTT INR 1.28 (0.82-1.09) H 01/11/17 19:40 Assessment/Plan IMP: Probable Urosepsis Elevated TnI likely due to demand ischemia, sepsis; doubt primary UT htn hpl RV appears dilated, with moderately reduced RV fxm- new from prior. Raises the question of PE. Insufficient TR signal to calculate RVSP. REC: Treatment of underlying infection Aspirin/plavix/heparin Ischemic evaluation when infection resolved r/o PEwhen cr improves Critical care time spent in reviewing chart, evaluating patient and formulating plan 36 min
[2017-01-13] MEDS: RANITIDINE HCL 150 MG TABLET (FP) PO SCH ×2 (10:10→22:07)
[2017-01-13] MEDS: ASPIRIN COATED 81 MG TABLET.EC PO SCH (10:10)
[2017-01-13] MEDS: CLOPIDOGREL BISULFATE 75 MG TABLET (FP) PO SCH (10:10)
[2017-01-13] MEDS: LACTOBACILLUS ACIDOPHILUS 1 EACH TAB (FP) PO SCH (10:10)
[2017-01-13] MEDS: MUPIROCIN 2% TOPICAL OINTMENT FOR DECOLONIZATION NS SCH ×2 (10:10→22:07)
[2017-01-13] MEDS: MAGNESIUM OXIDE 400 MG TABLET (FP) PO SCH ×2 (10:10→22:07)
[2017-01-13] MEDS: POLYETHYLENE GLYCOL 3350 119 GM BTL PO SCH (10:11)
[2017-01-13] MEDS: MULTIVITAMINS (DAILY MVI) TABLET (FP) PO SCH (10:11)
[2017-01-13] MEDS: SODIUM CHLORIDE 1,000 ML IV SCH (12:00)
--- NOTE | 2017-01-13 13:57 | PN ---
Progress Note (short form) - Note Progress Note: Subjective: The patient was seen and examined at the bedside, he denies any pain at this time. Tmax 106.6 overnight, started on cooling blanket, recultured Current Medications Generic Name Dose Route Start Last Admin Trade Name Freq PRN Reason Stop Dose Admin Acetaminophen 325 mg 01/12/17 05:50 01/12/17 21:31 Tylenol - PO 01/15/17 05:49 325 mg Q4H PRN Administration PAIN Aspirin 81 mg 01/12/17 10:00 01/13/17 10:10 Ecotrin - PO 81 mg DAILY JAYCEE Administration Baclofen 10 mg 01/12/17 21:00 01/12/17 21:31 Lioresal - PO 10 mg DAILY@2100 JAYCEE Administration Chlorhexidine Gluconate 1 applic 01/12/17 22:00 01/12/17 21:35 Hibiclens For Decolonization - TP 1 applic HS JAYCEE Administration Clopidogrel Bisulfate 75 mg 01/12/17 10:00 01/13/17 10:10 Plavix - PO 75 mg DAILY JAYCEE Administration Heparin Sodium (Porcine) 1,000 unit 01/12/17 12:47 01/13/17 04:15 Heparin - IVPUSH 1,000 unit PRN PRN Administration Heparin Heparin Sodium (Porcine) 5,000 unit 01/12/17 12:47 Heparin - IVPUSH PRN PRN Heparin Heparin Sodium (Porcine) 25, 500 mls @ 20 mls/hr 01/12/17 13:00 01/13/17 04:15 000 unit/ Sodium Chloride IV 1,200 unit/hr TITR JAYCEE Titration Protocol 1,000 UNIT/HR Piperacillin Sod/Tazobactam Sod 50 mls @ 100 mls/hr 01/12/17 18:00 01/13/17 10: 10 Zosyn 3.375gm Ivpb (Pre-Docked) IVPB 100 mls/hr Q8H-IV JAYCEE Administration Protocol Lactobacillus Acidophilus 1 tab 01/12/17 10:00 01/13/17 10:10 Bacid - PO 1 tab DAILY JAYCEE Administration Magnesium Oxide 400 mg 01/12/17 10:00 01/13/17 10:10 Mag-Ox - PO 400 mg BID JAYCEE Administration Multivitamins/Minerals/Vitamin C 1 tab 01/12/17 10:00 01/13/17 10:11 Tab-A-Vit - PO 1 tab DAILY JAYCEE Administration Mupirocin 1 applic 01/12/17 10:00 01/13/17 10:10 Bactroban Ointment (For Decolonization) - NS 01/17/17 09:59 1 applic BID JAYCEE Administration Oxycodone HCl 5 mg 01/12/17 05:50 01/12/17 21:31 Roxicodone - PO 5 mg Q4H PRN Administration PAIN Polyethylene Glycol 17 gm 01/12/17 10:00 01/13/17 10:11 Miralax (For Daily Use) - PO 17 grams DAILY JAYCEE Administration Ranitidine HCl 150 mg 01/12/17 10:00 01/13/17 10:10 Zantac - PO 150 mg BID JAYCEE Administration Objective: Vital Signs Period Temp Pulse Resp BP Sys/Conner Pulse Ox Last 24 Hr 98.3 F-106.6 F 72-142 18-28 80-133/54-77 100-100 Physical Exam: General: NAD, A&Ox3 Lungs: CTA bilaterally Heart: RRR, S1S2 Abd: Soft, non-tender, non-distended. Normoactive bowel sounds Ext: Warm, well-perfused. 2+ DP/PT bilaterally Skin: Left hand healed noriega graft CBCD WBC 10.3 K/mm3 (4.0-10.0) H 01/13/17 05:50 RBC 3.52 M/mm3 (4.00-5.60) L 01/13/17 05:50 Hgb 9.2 GM/dL (11.7-16.9) L 01/13/17 05:50 Hct 29.3 % (35.4-49) L 01/13/17 05:50 MCV 83.2 fl (80-96) 01/13/17 05:50 MCHC 31.5 g/dl (32.0-35.9) L 01/13/17 05:50 RDW 15.2 % (11.9-15.9) 01/13/17 05:50 Plt Count 163 K/MM3 (134-434) 01/13/17 05:50 MPV 8.7 fl (7.5-11.1) 01/13/17 05:50 CMP Sodium 141 mmol/L (136-145) 01/13/17 05:50 Potassium 3.8 mmol/L (3.5-5.1) 01/13/17 05:50 Chloride 109 mmol/L (98-107) H 01/13/17 05:50 Carbon Dioxide 24 mmol/L (21-32) 01/13/17 05:50 Anion Gap 8 (8-16) 01/13/17 05:50 BUN 25 mg/dL (7-18) H 01/13/17 05:50 Creatinine 1.3 mg/dL (0.7-1.3) 01/13/17 05:50 Creat Clearance w eGFR 51.02 (>60) 01/12/17 05:15 Random Glucose 143 mg/dL (74-106) H 01/13/17 05:50 Calcium 7.7 mg/dL (8.5-10.1) L 01/13/17 05:50 Total Bilirubin 0.5 mg/dL (0.2-1.0) 01/12/17 05:15 AST 36 U/L (15-37) 01/12/17 05:15 ALT 25 U/L (12-78) 01/12/17 05:15 Alkaline Phosphatase 127 U/L (45-117) H 01/12/17 05:15 Total Protein 6.9 g/dl (6.4-8.2) 01/12/17 05:15 Albumin 2.9 g/dl (3.4-5.0) L 01/12/17 05:15 CARDIAC ENZYMES Creatine Kinase 500 IU/L (39-308) H D 01/11/17 19:50 Troponin I 1.02 ng/ml (0.00-0.05) H* 01/12/17 05:15 Microbiology 01/11/17 19:50 Blood - Peripheral Venous Blood Culture - Final Escherichia Coli 01/11/17 20:17 Urine - Urine - Catheterized Urine Culture - Preliminary Lactose Fermenting Neg Bacilli 01/11/17 19:50 Blood - Peripheral Venous Blood Culture - Preliminary NO GROWTH OBTAINED AFTER 24 HOURS, INCUBATION TO CONTINUE FOR 4 DAYS. 01/11/17 19:40 Nasopharyngeal Swab Respiratory Virus Panel - Preliminary 01/12/17 11:30 Urine For Antigen Detection Legionella Antigen - Final 01/12/17 11:30 Urine For Antigen Detection Streptococcus pneumoniae Antigen (M - Final 01/11/17 19:40 Nasopharyngeal Swab Influenza Types A,B Antigen ([place]) - Final 01/11/17 19:40 Nasopharyngeal Swab - Final IMAGING: CXR 01/11 - No acute lung disease present EKG 01/11 - Sinus tachycardia, possible left atrial enlargement, inferior infarct - age undetermined EKG 01/12 - Normal sinus rhythm, prolonged QT interval, T-waves abnormal - consider anterior infarct Assessment: 62 year old male with PMHx HTN, HLD, CVA with residual right-sided weakness, 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 Plan: 1) ID: Severe sepsis 2/2 gram negative bacilli bacteremia and UTI - Tmax 106.6, placed on cooling blanket, cultures resent - Still with hypotension, will consider vasopressors if worsening hypotension - Continue Zosyn, consider broadening if remains febrile - Appreciate ID consult Hx of spinal abscess - No evidence indicating recurrence of spinal abscess at the moment, patient denies pain in back, no tenderness - If becomes symptomatic, will consider MRI spine 2) Cardiology: Elevated troponins - Likely demand ischemia secondary to hypotension from sepsis - Troponin trended down - Plan further cards w/u once infection resolved - ECHO with RV dilation, question for PE which could explain tachycardia and fever. Lower extremity doppler negative for DVT. F/u Chest CTA once creatinine improves. Continue Heparin gtt - Appreciate cardiology consult 3): SMILEY - Likely 2/2 prerenal/hypotension - Creatinine trending down, 1.3 today - Avoid nephrotoxic medications 4) Heme: Anemia - Hgb trending down slightly, may be dilutional from IV fluids - Continue to trend - Hgb up from baseline ~8.8 5) F/E/N Fluids: Encourage PO intake Electrolytes: Monitor and replace as needed Nutrition: Low-sodium diet 7. Prophylaxis - On heparin gtt - PT Dispo: Continues to require ICU care. CODE STATUS: FULL CODE Visit type - Emergency Visit Emergency Visit: Yes ED Registration Date: 01/11/17 Care time: The patient presented to the Emergency Department on the above date and was hospitalized for further evaluation of their emergent condition. - New Patient This patient is new to me today: No - Critical Care Critical Care patient: Yes Total Critical Care Time (in minutes): 38 Critical Care Statement: The care of this patient involved high complexity decision making to prevent further life threatening deterioration of the patient 's condition and/or to evalute & treat vital organ system(s) failure or risk of failure.
--- NOTE | 2017-01-13 15:38 | PN ---
Progress Note, Physician History of Present Illness: patient doing well now had spike fever to 106 patient now feels better - Current Medication List Current Medications: Active Medications Acetaminophen (Tylenol -) 325 mg PO Q4H PRN PRN Reason: PAIN Stop: 01/15/17 05:49 Last Admin: 01/12/17 21:31 Dose: 325 mg Aspirin (Ecotrin -) 81 mg PO DAILY [facility] Last Admin: 01/13/17 10:10 Dose: 81 mg Baclofen (Lioresal -) 10 mg PO DAILY@2100 [facility] Last Admin: 01/12/17 21:31 Dose: 10 mg Chlorhexidine Gluconate (Hibiclens For Decolonization -) 1 applic TP HS [facility] Last Admin: 01/12/17 21:35 Dose: 1 applic Clopidogrel Bisulfate (Plavix -) 75 mg PO DAILY [facility] Last Admin: 01/13/17 10:10 Dose: 75 mg Heparin Sodium (Porcine) (Heparin -) 1,000 unit IVPUSH PRN PRN PRN Reason: Heparin Last Admin: 01/13/17 04:15 Dose: 1,000 unit Heparin Sodium (Porcine) (Heparin -) 5,000 unit IVPUSH PRN PRN PRN Reason: Heparin Heparin Sodium (Porcine) 25, (000 unit/ Sodium Chloride) 500 mls @ 20 mls/hr IV TITR JAYCEE; 1,000 UNIT/HR PRN Reason: Protocol Last Titration: 01/13/17 04:15 Dose: 1,200 unit/hr Piperacillin Sod/Tazobactam Sod (Zosyn 3.375gm Ivpb (Pre-Docked)) 50 mls @ 100 mls/hr IVPB Q8H-IV JAYCEE PRN Reason: Protocol Last Admin: 01/13/17 10:10 Dose: 100 mls/hr Sodium Chloride (Normal Saline -) 1,000 mls @ 75 mls/hr IV ASDIR JAYCEE Lactobacillus Acidophilus (Bacid -) 1 tab PO DAILY [facility] Last Admin: 01/13/17 10:10 Dose: 1 tab Magnesium Oxide (Mag-Ox -) 400 mg PO BID [facility] Last Admin: 01/13/17 10:10 Dose: 400 mg Multivitamins/Minerals/Vitamin C (Tab-A-Vit -) 1 tab PO DAILY [facility] Last Admin: 01/13/17 10:11 Dose: 1 tab Mupirocin (Bactroban Ointment (For Decolonization) -) 1 applic NS BID [facility] Stop: 01/17/17 09:59 Last Admin: 01/13/17 10:10 Dose: 1 applic Oxycodone HCl (Roxicodone -) 5 mg PO Q4H PRN PRN Reason: PAIN Last Admin: 01/12/17 21:31 Dose: 5 mg Polyethylene Glycol (Miralax (For Daily Use) -) 17 gm PO DAILY [facility] Last Admin: 01/13/17 10:11 Dose: 17 grams Ranitidine HCl (Zantac -) 150 mg PO BID [facility] Last Admin: 01/13/17 10:10 Dose: 150 mg - Objective Vital Signs: Vital Signs Temperature 98.2 F 01/13/17 14:00 Pulse Rate 76 01/13/17 14:00 Respiratory Rate 18 01/13/17 14:00 Blood Pressure 85/67 01/13/17 14:00 O2 Sat by Pulse Oximetry (%) 100 01/13/17 09:00 Constitutional: Yes: No Distress, Calm Cardiovascular: Yes: Regular Rate and Rhythm Respiratory: Yes: Regular, CTA Bilaterally Gastrointestinal: Yes: Normal Bowel Sounds, Soft, Hypoactive Bowel Sounds Musculoskeletal: Yes: WNL Extremities: Yes: WNL Neurological: Yes: Alert, Oriented Psychiatric: Yes: Alert, Oriented Labs: CBC, BMP 01/13/17 05:50 01/13/17 05:50 INR, PTT INR 1.28 (0.82-1.09) H 01/11/17 19:40 Assessment/Plan patient with very high grade fevers hypothermia blanket sepsis josé luis h/o of spinal abscess incontinence increased trop fever leukocytosis plan will continue zosyn bacteria identification noted close watch on the fevers if it continues inspite of abx torres scan also watch on wbc cc time 40 min patients wbc has been increasing if the wbc incrases and fevers again--scan the the patient
[2017-01-13] MEDS: HEPARIN - 25,000 UNIT in SODIUM CHLORIDE 495 ML IV SCH (17:25)
[2017-01-13] MEDS ORDERED: PT OWN MED DRAWER 7, Y5N ONE (20:43)
[2017-01-13] MEDS: BACLOFEN 10 MG TABLET (FP) PO SCH (20:50)
[2017-01-13] MEDS: oxyCODONE HCL 5 MG TABLET PO PRN (21:16)
[2017-01-13] MEDS: ACETAMINOPHEN 325 MG TABLET (FP) PO PRN (21:17)
[2017-01-13] MEDS: CHLORHEXIDINE GLUCONATE 4% CLEANSER FOR DECOLONIZATION TP SCH (22:07)
[2017-01-14] MEDS: PIPERACILLIN/TAZOB 3.375 GM 50 ML IVPB SCH ×3 (01:12→17:17)
[2017-01-14 06:59] LABS: MCH 26.7 pg (25.7-33.7); MCHC 32.4 g/dl (32.0-35.9); MEAN CELL VOLUME 82.4 fl (80-96); MEAN PLT VOLUME 8.4 fl (7.5-11.1); PLATELET COUNT 148 K/MM3 (134-434); RDW 15.2 % (11.9-15.9); WHITE BLOOD COUNT 5.9 K/mm3 (4.0-10.0)
[2017-01-14 07:39] LABS: ALBUMIN 2.2 g/dl (3.4-5.0); ANION GAP 8 (8-16); BILIRUBIN,TOTAL 0.2 mg/dL (0.2-1.0); CALCIUM 7.7 mg/dL (8.5-10.1); CO2 25 mmol/L (21-32); COCKROFT - GAULT 128.74; CREATININE 0.9 mg/dL (0.7-1.3); GLUCOSE,RANDOM 90 mg/dL (74-106); SGOT/AST 42 U/L (15-37); SGPT/ALT 41 U/L (12-78); TOT PROT 5.6 g/dl (6.4-8.2)
[2017-01-14 07:40] LABS: ALK PHOS 93 U/L (45-117)
--- NOTE | 2017-01-14 09:17 | PN ---
Progress Note (short form) - Note Progress Note: Patient seen and examined in the ICU. Awake and alert. No back pain. No CP or SOB. Currently on IV Heparin. Fever curve improving. Lind-sensitive E Coli identified. Intake & Output 01/11/17 01/12/17 01/13/17 01/14/17 23:59 23:59 23:59 23:59 Intake Total 3050 2506 1140 Output Total 400 100 800 Balance 2650 2406 340 Weight 215 lb 232 lb 9 oz 242 lb Last Vital Signs Temp Pulse Resp BP Pulse Ox 99.9 F H 90 18 101/68 100 01/14/17 06:00 01/14/17 08:00 01/14/17 08:00 01/14/17 08:00 01/14/17 08:46 Active Medications Acetaminophen (Tylenol -) 325 mg PO Q4H PRN PRN Reason: PAIN Stop: 01/15/17 05:49 Last Admin: 01/13/17 21:17 Dose: 325 mg Aspirin (Ecotrin -) 81 mg PO DAILY [facility] Last Admin: 01/13/17 10:10 Dose: 81 mg Baclofen (Lioresal -) 10 mg PO DAILY@2100 [facility] Last Admin: 01/13/17 20:50 Dose: 10 mg Chlorhexidine Gluconate (Hibiclens For Decolonization -) 1 applic TP HS [facility] Last Admin: 01/13/17 22:07 Dose: 1 applic Clopidogrel Bisulfate (Plavix -) 75 mg PO DAILY [facility] Last Admin: 01/13/17 10:10 Dose: 75 mg Fluticasone Propionate (Flonase -) 1 spray NS BID [facility] Heparin Sodium (Porcine) (Heparin -) 1,000 unit IVPUSH PRN PRN PRN Reason: Heparin Last Admin: 01/13/17 04:15 Dose: 1,000 unit Heparin Sodium (Porcine) (Heparin -) 5,000 unit IVPUSH PRN PRN PRN Reason: Heparin Heparin Sodium (Porcine) 25, (000 unit/ Sodium Chloride) 500 mls @ 20 mls/hr IV TITR JAYCEE; 1,000 UNIT/HR PRN Reason: Protocol Last Admin: 01/13/17 17:25 Dose: 24 mls/hr Piperacillin Sod/Tazobactam Sod (Zosyn 3.375gm Ivpb (Pre-Docked)) 50 mls @ 100 mls/hr IVPB Q8H-IV JAYCEE PRN Reason: Protocol Last Admin: 01/14/17 01:12 Dose: 100 mls/hr Sodium Chloride (Normal Saline -) 1,000 mls @ 75 mls/hr IV ASDIR JAYCEE Last Admin: 01/13/17 12:00 Dose: 75 mls/hr Lactobacillus Acidophilus (Bacid -) 1 tab PO DAILY JAYCEE Last Admin: 01/13/17 10:10 Dose: 1 tab Magnesium Oxide (Mag-Ox -) 400 mg PO BID JAYCEE Last Admin: 01/13/17 22:07 Dose: 400 mg Multivitamins/Minerals/Vitamin C (Tab-A-Vit -) 1 tab PO DAILY JAYCEE Last Admin: 01/13/17 10:11 Dose: 1 tab Mupirocin (Bactroban Ointment (For Decolonization) -) 1 applic NS BID [facility] Stop: 01/17/17 09:59 Last Admin: 01/13/17 22:07 Dose: 1 applic Oxycodone HCl (Roxicodone -) 5 mg PO Q4H PRN PRN Reason: PAIN Last Admin: 01/13/17 21:16 Dose: 5 mg Polyethylene Glycol (Miralax (For Daily Use) -) 17 gm PO DAILY [facility] Last Admin: 01/13/17 10:11 Dose: 17 grams Ranitidine HCl (Zantac -) 150 mg PO BID [facility] Last Admin: 01/13/17 22:07 Dose: 150 mg Constitutional: Yes: Awake and alert, Obese Eyes: Yes: (-) Pallor HENT: Yes: Normocephalic Neck: Yes: Supple Cardiovascular: Yes: Regular Rate and Rhythm Respiratory: Yes: Clear Gastrointestinal: Yes: Obese, soft, (+) BS Renal/: Yes: Incontinence Musculoskeletal: Yes: WNL Edema: No Peripheral Pulses WNL: Yes Integumentary: Yes: WNL Neurological: Yes: WNL, Alert, Oriented ...Motor Strength: RUE (Chronic rt side weakness), RLE Labs: Laboratory Results - last 24 hr 01/13/17 01/14/17 01/14/17 10:00 05:27 05:27 WBC 5.9 D RBC 3.20 L Hgb 8.5 L Hct 26.3 L MCV 82.4 MCHC 32.4 RDW 15.2 Plt Count 148 MPV 8.4 PTT (Actin FS) 70.1 H D Sodium 145 Potassium 4.2 Chloride 112 H Carbon Dioxide 25 Anion Gap 8 BUN 18 D Creatinine 0.9 D Creat Clearance w eGFR > 60 Random Glucose 90 D Hemoglobin A1c % Calcium 7.7 L Total Bilirubin 0.2 D AST 42 H ALT 41 D Alkaline Phosphatase 93 D Total Protein 5.6 L Albumin 2.2 L D 01/14/17 01/14/17 05:27 05:27 WBC RBC Hgb Hct MCV MCHC RDW Plt Count MPV PTT (Actin FS) 51.9 H Sodium Potassium Chloride Carbon Dioxide Anion Gap BUN Creatinine Creat Clearance w eGFR Random Glucose Hemoglobin A1c % 5.4 Calcium Total Bilirubin AST ALT Alkaline Phosphatase Total Protein Albumin Assessment/Plan Sepsis due to a source E Coli bacteremia HTN HPL CVA History of a prolonged illness due to a spinal abscess Neurogenic bladder (+) Troponin -> Demand Ischemia SMILEY IVF ABX per ID -> Consider ABX change based on [place] data O2 as needed Antiplatelets Statin Hold antiHTN meds 4W/4S monitoring Dr Vieyra Critical care time spent in reviewing chart, evaluating patient and formulating plan 36 min
[2017-01-14] MEDS: MAGNESIUM OXIDE 400 MG TABLET (FP) PO SCH ×2 (09:29→21:14)
[2017-01-14] MEDS: LACTOBACILLUS ACIDOPHILUS 1 EACH TAB (FP) PO SCH (09:29)
[2017-01-14] MEDS: RANITIDINE HCL 150 MG TABLET (FP) PO SCH ×2 (09:29→21:14)
[2017-01-14] MEDS: MULTIVITAMINS (DAILY MVI) TABLET (FP) PO SCH (09:29)
[2017-01-14] MEDS: CLOPIDOGREL BISULFATE 75 MG TABLET (FP) PO SCH (09:29)
[2017-01-14] MEDS: ASPIRIN COATED 81 MG TABLET.EC PO SCH (09:29)
[2017-01-14] MEDS: MUPIROCIN 2% TOPICAL OINTMENT FOR DECOLONIZATION NS SCH ×2 (09:29→21:13)
[2017-01-14] MEDS: POLYETHYLENE GLYCOL 3350 119 GM BTL PO SCH ×2 (09:30→21:14)
[2017-01-14] MEDS ORDERED: PT OWN MED DRAWER 7, Y5N ONE ×2 (09:32→21:08)
[2017-01-14] MEDS: FLUTICASONE PROP 0.05% 16 GM NASAL SPRAY NS SCH ×3 (10:00→21:13)
--- NOTE | 2017-01-14 10:46 | PN ---
Progress Note, Physician History of Present Illness: The patient is a 61 year old male, with a significant past medical history of hypertension, hyperlipidemia, CVA (with residual right sided weakness) and a two month admission to this hospital last year (10/16/2015 - 12/22/2015), who presents to the emergency department via EMS with a fever. The patient states that he had a routine visit with his occupational therapist earlier today, during which his vitals were taken. He reports that although he did not feel as though he had a fever, his temperature was recorded to be 101.7 degrees. His occupational therapist subsequently called his PMD, who advised that he go to the ED for further evaluation. The patient denies chest pain or shortness of breath. The patient denies chills, cough, nausea, vomiting, diarrhea, melena/ bpr or dysuria. The patient denies back pain. The patient uses a wheelchair at baseline. The patients is at the bedside. Allergies: None reported. Past Surgical History: Laminectomy T9-S1 with debridement (10/22/2015); Drainage of paraspinal and epidural abscesses Social History: Non smoker. Denies alcohol or drug use. PCP: Dr. Milind Leos - Current Medication List Current Medications: Active Medications Acetaminophen (Tylenol -) 325 mg PO Q4H PRN PRN Reason: PAIN Stop: 01/15/17 05:49 Last Admin: 01/13/17 21:17 Dose: 325 mg Aspirin (Ecotrin -) 81 mg PO DAILY [facility] Last Admin: 01/14/17 09:29 Dose: 81 mg Baclofen (Lioresal -) 10 mg PO DAILY@2100 [facility] Last Admin: 01/13/17 20:50 Dose: 10 mg Chlorhexidine Gluconate (Hibiclens For Decolonization -) 1 applic TP HS [facility] Last Admin: 01/13/17 22:07 Dose: 1 applic Clopidogrel Bisulfate (Plavix -) 75 mg PO DAILY [facility] Last Admin: 01/14/17 09:29 Dose: 75 mg Fluticasone Propionate (Flonase -) 1 spray NS BID [facility] Heparin Sodium (Porcine) (Heparin -) 1,000 unit IVPUSH PRN PRN PRN Reason: Heparin Last Admin: 01/13/17 04:15 Dose: 1,000 unit Heparin Sodium (Porcine) (Heparin -) 5,000 unit IVPUSH PRN PRN PRN Reason: Heparin Heparin Sodium (Porcine) 25, (000 unit/ Sodium Chloride) 500 mls @ 20 mls/hr IV TITR JAYCEE; 1,000 UNIT/HR PRN Reason: Protocol Last Admin: 01/13/17 17:25 Dose: 24 mls/hr Piperacillin Sod/Tazobactam Sod (Zosyn 3.375gm Ivpb (Pre-Docked)) 50 mls @ 100 mls/hr IVPB Q8H-IV JAYCEE PRN Reason: Protocol Last Admin: 01/14/17 09:29 Dose: 100 mls/hr Sodium Chloride (Normal Saline -) 1,000 mls @ 75 mls/hr IV ASDIR JAYCEE Last Admin: 01/13/17 12:00 Dose: 75 mls/hr Lactobacillus Acidophilus (Bacid -) 1 tab PO DAILY [facility] Last Admin: 01/14/17 09:29 Dose: 1 tab Magnesium Oxide (Mag-Ox -) 400 mg PO BID JAYCEE Last Admin: 01/14/17 09:29 Dose: 400 mg Multivitamins/Minerals/Vitamin C (Tab-A-Vit -) 1 tab PO DAILY [facility] Last Admin: 01/14/17 09:29 Dose: 1 tab Mupirocin (Bactroban Ointment (For Decolonization) -) 1 applic NS BID [facility] Stop: 01/17/17 09:59 Last Admin: 01/14/17 09:29 Dose: 1 applic Oxycodone HCl (Roxicodone -) 5 mg PO Q4H PRN PRN Reason: PAIN Last Admin: 01/13/17 21:16 Dose: 5 mg Polyethylene Glycol (Miralax (For Daily Use) -) 17 gm PO DAILY [facility] Last Admin: 01/14/17 09:30 Dose: 17 grams Ranitidine HCl (Zantac -) 150 mg PO BID JAYCEE Last Admin: 01/14/17 09:29 Dose: 150 mg - Objective Vital Signs: Vital Signs Temperature 99.9 F H 01/14/17 06:00 Pulse Rate 90 01/14/17 09:38 Respiratory Rate 18 01/14/17 09:38 Blood Pressure 92/67 01/14/17 09:38 O2 Sat by Pulse Oximetry (%) 100 01/14/17 09:00 Eyes: Yes: WNL, Conjunctiva Clear, EOM Intact HENT: Yes: WNL, Atraumatic, Normocephalic Neck: Yes: WNL, Supple, Trachea Midline Cardiovascular: Yes: WNL, Regular Rate and Rhythm Respiratory: Yes: WNL, Regular, CTA Bilaterally Gastrointestinal: Yes: WNL, Normal Bowel Sounds Genitourinary: Yes: WNL Musculoskeletal: Yes: WNL Extremities: Yes: WNL Edema: No Integumentary: Yes: WNL Neurological: Yes: WNL, Alert, Oriented ...Motor Strength: WNL Psychiatric: Yes: WNL Labs: CBC, BMP 01/14/17 05:27 01/14/17 05:27 INR, PTT INR 1.28 (0.82-1.09) H 01/11/17 19:40 Assessment/Plan IMP: e.coli bacteremia Elevated TnI likely due to demand ischemia, sepsis; doubt primary VT htn hpl RV appears dilated, with moderately reduced RV fxm- new from prior. Raises the question of PE. Insufficient TR signal to calculate RVSP. REC: Treatment of underlying infection Aspirin/plavix/heparin Ischemic evaluation when infection resolved r/o PE when cr improves Critical care time spent in reviewing chart, evaluating patient and formulating plan 36 min
[2017-01-14] MEDS: SODIUM CHLORIDE 1,000 ML IV SCH (13:42)
[2017-01-14] MEDS: HEPARIN - 25,000 UNIT in SODIUM CHLORIDE 495 ML IV SCH (13:50)
--- NOTE | 2017-01-14 17:43 | PN ---
Progress Note, Physician History of Present Illness: patient doing well now still low grade fever - Current Medication List Current Medications: Active Medications Acetaminophen (Tylenol -) 325 mg PO Q4H PRN PRN Reason: PAIN Stop: 01/15/17 05:49 Last Admin: 01/13/17 21:17 Dose: 325 mg Aspirin (Ecotrin -) 81 mg PO DAILY [facility] Last Admin: 01/14/17 09:29 Dose: 81 mg Baclofen (Lioresal -) 10 mg PO DAILY@2100 [facility] Last Admin: 01/13/17 20:50 Dose: 10 mg Chlorhexidine Gluconate (Hibiclens For Decolonization -) 1 applic TP HS [facility] Last Admin: 01/13/17 22:07 Dose: 1 applic Clopidogrel Bisulfate (Plavix -) 75 mg PO DAILY [facility] Last Admin: 01/14/17 09:29 Dose: 75 mg Docusate Sodium (Colace -) 300 mg PO HS JAYCEE Fluticasone Propionate (Flonase -) 1 spray NS BID [facility] Last Admin: 01/14/17 13:36 Dose: 1 spray Heparin Sodium (Porcine) (Heparin -) 1,000 unit IVPUSH PRN PRN PRN Reason: Heparin Last Admin: 01/13/17 04:15 Dose: 1,000 unit Heparin Sodium (Porcine) (Heparin -) 5,000 unit IVPUSH PRN PRN PRN Reason: Heparin Heparin Sodium (Porcine) 25, (000 unit/ Sodium Chloride) 500 mls @ 20 mls/hr IV TITR JAYCEE; 1,000 UNIT/HR PRN Reason: Protocol Last Admin: 01/14/17 13:50 Dose: 24 mls/hr Piperacillin Sod/Tazobactam Sod (Zosyn 3.375gm Ivpb (Pre-Docked)) 50 mls @ 100 mls/hr IVPB Q8H-IV JAYCEE PRN Reason: Protocol Last Admin: 01/14/17 17:17 Dose: 100 mls/hr Sodium Chloride (Normal Saline -) 1,000 mls @ 75 mls/hr IV ASDIR JAYCEE Last Admin: 01/14/17 13:42 Dose: 75 mls/hr Lactobacillus Acidophilus (Bacid -) 1 tab PO DAILY [facility] Last Admin: 01/14/17 09:29 Dose: 1 tab Magnesium Oxide (Mag-Ox -) 400 mg PO BID [facility] Last Admin: 01/14/17 09:29 Dose: 400 mg Multivitamins/Minerals/Vitamin C (Tab-A-Vit -) 1 tab PO DAILY [facility] Last Admin: 01/14/17 09:29 Dose: 1 tab Mupirocin (Bactroban Ointment (For Decolonization) -) 1 applic NS BID [facility] Stop: 01/17/17 09:59 Last Admin: 01/14/17 09:29 Dose: 1 applic Oxycodone HCl (Roxicodone -) 5 mg PO Q4H PRN PRN Reason: PAIN Last Admin: 01/13/17 21:16 Dose: 5 mg Polyethylene Glycol (Miralax (For Daily Use) -) 17 gm PO BID [facility] Ranitidine HCl (Zantac -) 150 mg PO BID [facility] Last Admin: 01/14/17 09:29 Dose: 150 mg - Objective Vital Signs: Vital Signs Temperature 100.2 F H 01/14/17 16:00 Pulse Rate 76 01/14/17 16:00 Respiratory Rate 18 01/14/17 16:00 Blood Pressure 127/76 01/14/17 16:00 O2 Sat by Pulse Oximetry (%) 100 01/14/17 09:00 Constitutional: Yes: No Distress, Calm Cardiovascular: Yes: S1, S2 Respiratory: Yes: Regular, CTA Bilaterally Gastrointestinal: Yes: Normal Bowel Sounds, Soft ...Rectal Exam: Yes: Other ([place] catheter in place) Musculoskeletal: Yes: Other Extremities: Yes: Other (weakness on rt side) Neurological: Yes: Alert, Oriented Psychiatric: Yes: Alert, Oriented Labs: CBC, BMP 01/14/17 05:27 01/14/17 05:27 INR, PTT INR 1.28 (0.82-1.09) H 01/11/17 19:40 Assessment/Plan patient with very high grade fevers hypothermia blanket sepsis josé luis h/o of spinal abscess incontinence increased trop fever leukocytosis plan will continue zosyn bacteria identification noted close watch on the fevers if it continues inspite of abx torres scan also watch on wbc cc time 40 min patient still having low grade fevers has to be completely afebrile if patients fever does not break will scan him and might have to escalate the abx need to know why inspite of abx he is still spiking fevers
--- NOTE | 2017-01-14 19:09 | PN ---
Physical Exam: SUBJECTIVE: Patient seen and examined at bedside. Voices no complaints. Denies cough. Has chronic urinary and bowel incontinence but denies dysuria, urgency. Denies back pain. OBJECTIVE: Vital Signs Period Temp Pulse Resp BP Sys/Conner Pulse Ox Last 24 Hr 98.2 F-100.4 F 76-95 17-19 92-136/55-83 100-100 GENERAL: The patient is awake, alert, and fully oriented, in no acute distress. HEAD: Normal with no signs of trauma. EYES: PERRL, extraocular movements intact, sclera anicteric, conjunctiva clear. No ptosis. LUNGS: Breath sounds equal, clear to auscultation bilaterally, no wheezes, no crackles, no accessory muscle use. HEART: Regular rate and rhythm, S1, S2 without murmur, rub or gallop. ABDOMEN: Soft, nontender, nondistended, normoactive bowel sounds, no guarding, no rebound EXTREMITIES: 2+ pulses, warm, well-perfused, no edema. NEUROLOGICAL: Cranial nerves II through XII grossly intact. Normal speech, gait not observed. PSYCH: Normal mood, normal affect. SKIN: Warm, dry, normal turgor, no rashes or lesions noted Laboratory Results - last 24 hr 01/14/17 01/14/17 01/14/17 05:27 05:27 05:27 WBC 5.9 D RBC 3.20 L Hgb 8.5 L Hct 26.3 L MCV 82.4 MCHC 32.4 RDW 15.2 Plt Count 148 MPV 8.4 PTT (Actin FS) Sodium 145 Potassium 4.2 Chloride 112 H Carbon Dioxide 25 Anion Gap 8 BUN 18 D Creatinine 0.9 D Creat Clearance w eGFR > 60 Random Glucose 90 D Hemoglobin A1c % 5.4 Calcium 7.7 L Total Bilirubin 0.2 D AST 42 H ALT 41 D Alkaline Phosphatase 93 D Total Protein 5.6 L Albumin 2.2 L D 01/14/17 05:27 WBC RBC Hgb Hct MCV MCHC RDW Plt Count MPV PTT (Actin FS) 51.9 H Sodium Potassium Chloride Carbon Dioxide Anion Gap BUN Creatinine Creat Clearance w eGFR Random Glucose Hemoglobin A1c % Calcium Total Bilirubin AST ALT Alkaline Phosphatase Total Protein Albumin Active Medications Generic Name Dose Route Start Last Admin Trade Name Freq PRN Reason Stop Dose Admin Acetaminophen 325 mg 01/12/17 05:50 01/13/17 21:17 Tylenol - PO 01/15/17 05:49 325 mg Q4H PRN Administration PAIN Aspirin 81 mg 01/12/17 10:00 01/14/17 09:29 Ecotrin - PO 81 mg DAILY JAYCEE Administration Baclofen 10 mg 01/12/17 21:00 01/13/17 20:50 Lioresal - PO 10 mg DAILY@2100 JAYCEE Administration Chlorhexidine Gluconate 1 applic 01/12/17 22:00 01/13/17 22:07 Hibiclens For Decolonization - TP 1 applic HS JAYCEE Administration Clopidogrel Bisulfate 75 mg 01/12/17 10:00 01/14/17 09:29 Plavix - PO 75 mg DAILY JAYCEE Administration Docusate Sodium 300 mg 01/14/17 22:00 Colace - PO HS JAYCEE Fluticasone Propionate 1 spray 01/13/17 22:00 01/14/17 13:36 Flonase - NS 1 spray BID JAYCEE Administration Heparin Sodium (Porcine) 1,000 unit 01/12/17 12:47 01/13/17 04:15 Heparin - IVPUSH 1,000 unit PRN PRN Administration Heparin Heparin Sodium (Porcine) 5,000 unit 01/12/17 12:47 Heparin - IVPUSH PRN PRN Heparin Heparin Sodium (Porcine) 25, 500 mls @ 20 mls/hr 01/12/17 13:00 01/14/17 13:50 000 unit/ Sodium Chloride IV 24 mls/hr TITR JAYCEE Administration Protocol 1,000 UNIT/HR Piperacillin Sod/Tazobactam Sod 50 mls @ 100 mls/hr 01/12/17 18:00 01/14/17 17: 17 Zosyn 3.375gm Ivpb (Pre-Docked) IVPB 100 mls/hr Q8H-IV JAYCEE Administration Protocol Sodium Chloride 1,000 mls @ 75 mls/hr 01/13/17 14:15 01/14/17 13:42 Normal Saline - IV 75 mls/hr ASDIR JAYCEE Administration Lactobacillus Acidophilus 1 tab 01/12/17 10:00 01/14/17 09:29 Bacid - PO 1 tab DAILY JAYCEE Administration Magnesium Oxide 400 mg 01/12/17 10:00 01/14/17 09:29 Mag-Ox - PO 400 mg BID JAYCEE Administration Multivitamins/Minerals/Vitamin C 1 tab 01/12/17 10:00 01/14/17 09:29 Tab-A-Vit - PO 1 tab DAILY JAYCEE Administration Mupirocin 1 applic 01/12/17 10:00 01/14/17 09:29 Bactroban Ointment (For Decolonization) - NS 01/17/17 09:59 1 applic BID JAYCEE Administration Oxycodone HCl 5 mg 01/12/17 05:50 01/13/17 21:16 Roxicodone - PO 5 mg Q4H PRN Administration PAIN Polyethylene Glycol 17 gm 01/14/17 22:00 Miralax (For Daily Use) - PO BID JAYCEE Ranitidine HCl 150 mg 01/12/17 10:00 01/14/17 09:29 Zantac - PO 150 mg BID JAYCEE Administration IMAGING: CXR 01/11 - No acute lung disease present EKG 01/11 - Sinus tachycardia, possible left atrial enlargement, inferior infarct - age undetermined EKG 01/12 - Normal sinus rhythm, prolonged QT interval, T-waves abnormal - consider anterior infarct Assessment: 62 year old male with PMHx HTN, HLD, CVA with residual right-sided weakness, 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 Plan: 1) ID: Severe sepsis 2/2 gram negative bacilli bacteremia and UTI - Tmax 100.4 - Urine and blood cultures positive for E.coli sensitive to Zosyn; if fever persists torres scan - concern for possibility of obstructive uropathy secondary to neurogenic bladder contributing to UTI; US bladder with post-void residual pending Hx of spinal abscess - No evidence indicating recurrence of spinal abscess at the moment, patient denies pain in back, no tenderness - If fever persists, consider MRI spine 2) Cardiology: Elevated troponins - Likely demand ischemia secondary to hypotension from sepsis - Troponin trended down - Plan further cards w/u once infection resolved - ECHO with RV dilation, question for PE which could explain tachycardia and fever. Lower extremity doppler negative for DVT. Cr has normalized, CTA ordered ; continue Heparin gtt 3): SMILEY, resolved - Creatinine 0.9 today 4) Heme: Anemia - h/h stable 5) F/E/N Fluids: Encourage PO intake Electrolytes: Monitor and replace as needed Nutrition: Low-sodium diet 7. Prophylaxis - On heparin gtt - PT Dispo: Continues to require ICU care. CODE STATUS: FULL CODE Visit type - Emergency Visit Emergency Visit: Yes ED Registration Date: 01/11/17 Care time: The patient presented to the Emergency Department on the above date and was hospitalized for further evaluation of their emergent condition. - New Patient This patient is new to me today: Yes Date on this admission: 01/14/17 - Critical Care Critical Care patient: Yes Total Critical Care Time (in minutes): 35 Critical Care Statement: The care of this patient involved high complexity decision making to prevent further life threatening deterioration of the patient 's condition and/or to evalute & treat vital organ system(s) failure or risk of failure.
[2017-01-14] MEDS: BACLOFEN 10 MG TABLET (FP) PO SCH (21:13)
[2017-01-14] MEDS: CHLORHEXIDINE GLUCONATE 4% CLEANSER FOR DECOLONIZATION TP SCH (21:14)
[2017-01-14] MEDS ORDERED: DOCUSATE SODIUM 100 MG CAPSULE (FP) PO SCH (22:00)
[2017-01-15] MEDS: PIPERACILLIN/TAZOB 3.375 GM 50 ML IVPB SCH ×3 (02:00→17:19)
[2017-01-15 06:15] LABS: MCH 26.3 pg (25.7-33.7); MCHC 32.2 g/dl (32.0-35.9); MEAN CELL VOLUME 81.7 fl (80-96); PLATELET COUNT 191 K/MM3 (134-434); RDW 15.2 % (11.9-15.9); WHITE BLOOD COUNT 5.4 K/mm3 (4.0-10.0)
[2017-01-15 06:56] LABS: ALBUMIN 2.2 g/dl (3.4-5.0); ANION GAP 9 (8-16); CALCIUM 8.1 mg/dL (8.5-10.1); CO2 25 mmol/L (21-32); COCKROFT - GAULT 143.69; CREATININE 0.8 mg/dL (0.7-1.3); GLUCOSE,RANDOM 92 mg/dL (74-106); MAGNESIUM 2.2 mg/dL (1.8-2.4); PHOSPHOROUS 1.5 mg/dL (2.5-4.9); SGOT/AST 28 U/L (15-37); SGPT/ALT 34 U/L (12-78)
[2017-01-15 06:58] LABS: ALK PHOS 96 U/L (45-117); BILIRUBIN,TOTAL 0.3 mg/dL (0.2-1.0); TOT PROT 5.6 g/dl (6.4-8.2)
--- NOTE | 2017-01-15 09:17 | PN ---
Physical Exam: SUBJECTIVE: Patient seen and examined. No complaints on exam. Denies pain in back. Reports sinus pressure and congestion for the past 1.5 months or so which was treated with flonase with minimal relief. Pt with temp 100.3 @ 10pm last night but afebrile since then. Denies chills. OBJECTIVE: Vital Signs - 24 hr 3 01/14/17 01/14/17 01/14/17 09:00 09:38 11:00 Temperature 100.2 F H Pulse Rate 90 95 H Respiratory 18 18 Rate Blood Pressure 92/67 94/73 O2 Sat by Pulse 100 Oximetry (%) 3 01/14/17 01/14/17 01/14/17 12:00 14:00 16:00 Temperature 100.4 F H 100.2 F H Pulse Rate 86 84 76 Respiratory 18 18 18 Rate Blood Pressure 120/68 136/72 127/76 O2 Sat by Pulse Oximetry (%) 3 01/14/17 01/14/17 01/14/17 18:00 20:00 22:00 Temperature 100.3 F H Pulse Rate 80 90 80 Respiratory 18 18 18 Rate Blood Pressure 112/74 137/83 116/77 O2 Sat by Pulse 100 Oximetry (%) 3 01/15/17 01/15/17 01/15/17 00:00 02:00 04:00 Temperature 99.4 F Pulse Rate 76 84 76 Respiratory 16 12 12 Rate Blood Pressure 114/75 115/66 119/69 O2 Sat by Pulse Oximetry (%) 3 01/15/17 01/15/17 06:00 08:00 Temperature 99.1 F Pulse Rate 80 80 Respiratory 16 18 Rate Blood Pressure 135/84 122/60 O2 Sat by Pulse Oximetry (%) GENERAL: The patient is awake, alert, and fully oriented, in no acute distress. HEAD: Normal with no signs of trauma. EYES: PERRL, extraocular movements intact, sclera anicteric, conjunctiva clear. No ptosis. ENT: Ears normal, nares patent, oropharynx clear without exudates, moist mucous membranes. NECK: Trachea midline, full range of motion, supple. LUNGS: Breath sounds equal, clear to auscultation bilaterally, no wheezes, no crackles, no accessory muscle use. HEART: Regular rate and rhythm, S1, S2 without murmur, rub or gallop. ABDOMEN: Soft, nontender, nondistended, normoactive bowel sounds, no guarding, no rebound, no hepatosplenomegaly, no masses. EXTREMITIES: 2+ pulses, warm, well-perfused, no edema. NEUROLOGICAL: Cranial nerves II through XII grossly intact. Normal speech, gait not observed. PSYCH: Normal mood, normal affect. SKIN: Warm, dry, normal turgor, no rashes or lesions noted Laboratory Results - last 24 hr 3 01/14/17 01/15/17 01/15/17 01/15/17 05:27 05:20 05:20 06:00 WBC 5.4 RBC 3.12 L Hgb 8.2 L Hct 25.5 L MCV 81.7 MCHC 32.2 RDW 15.2 Plt Count 191 D MPV 8.0 PTT (Actin FS) 59.7 H Sodium 146 H Potassium 3.9 Chloride 112 H Carbon Dioxide 25 Anion Gap 9 BUN 13 D Creatinine 0.8 Creat Clearance w eGFR > 60 Random Glucose 92 Hemoglobin A1c % 5.4 Calcium 8.1 L Phosphorus 1.5 L D Magnesium 2.2 Total Bilirubin 0.3 D AST 28 D ALT 34 Alkaline Phosphatase 96 Total Protein 5.6 L Albumin 2.2 L Active Medications 3 Generic Name Dose Route Start Last Admin Trade Name Freq PRN Reason Stop Dose Admin Aspirin 81 mg 01/12/17 10:00 01/14/17 09:29 Ecotrin - PO 81 mg DAILY JAYCEE Administration Baclofen 10 mg 01/12/17 21:00 01/14/17 21:13 Lioresal - PO 10 mg DAILY@2100 JAYCEE Administration Chlorhexidine Gluconate 1 applic 01/12/17 22:00 01/14/17 21:14 Hibiclens For Decolonization - TP 1 applic HS JAYCEE Administration Clopidogrel Bisulfate 75 mg 01/12/17 10:00 01/14/17 09:29 Plavix - PO 75 mg DAILY JAYCEE Administration Docusate Sodium 300 mg 01/14/17 22:00 01/14/17 21:13 Colace - PO 300 mg HS JAYCEE Administration Fluticasone Propionate 1 spray 01/13/17 22:00 01/14/17 21:13 Flonase - NS 1 spray BID JAYCEE Administration Heparin Sodium (Porcine) 1,000 unit 01/12/17 12:47 01/13/17 04:15 Heparin - IVPUSH 1,000 unit PRN PRN Administration Heparin Heparin Sodium (Porcine) 5,000 unit 01/12/17 12:47 Heparin - IVPUSH PRN PRN Heparin Heparin Sodium (Porcine) 25, 500 mls @ 20 mls/hr 01/12/17 13:00 01/14/17 13:50 000 unit/ Sodium Chloride IV 24 mls/hr TITR JAYCEE Administration Protocol 1,000 UNIT/HR Piperacillin Sod/Tazobactam Sod 50 mls @ 100 mls/hr 01/12/17 18:00 01/15/17 02: 00 Zosyn 3.375gm Ivpb (Pre-Docked) IVPB 100 mls/hr Q8H-IV JAYCEE Administration Protocol Sodium Chloride 1,000 mls @ 75 mls/hr 01/13/17 14:15 01/14/17 13:42 Normal Saline - IV 75 mls/hr ASDIR JAYCEE Administration Lactobacillus Acidophilus 1 tab 01/12/17 10:00 01/14/17 09:29 Bacid - PO 1 tab DAILY JAYCEE Administration Magnesium Oxide 400 mg 01/12/17 10:00 01/14/17 21:14 Mag-Ox - PO 400 mg BID JAYCEE Administration Multivitamins/Minerals/Vitamin C 1 tab 01/12/17 10:00 01/14/17 09:29 Tab-A-Vit - PO 1 tab DAILY JAYCEE Administration Mupirocin 1 applic 01/12/17 10:00 01/14/17 21:13 Bactroban Ointment (For Decolonization) - NS 01/17/17 09:59 1 applic BID JAYCEE Administration Polyethylene Glycol 17 gm 01/14/17 22:00 01/14/17 21:14 Miralax (For Daily Use) - PO 17 gm BID JAYCEE Administration Potassium Phos/Sodium Phos 1 packet 01/15/17 10:00 Phos-Nak Packet - PO 01/15/17 22:01 BID JAYCEE Ranitidine HCl 150 mg 01/12/17 10:00 01/14/17 21:14 Zantac - PO 150 mg BID JAYCEE Administration ASSESSMENT/PLAN: 62yM with PMH HTN, CVA RLE, spinal abscess s/p T9-S1 laminectomies and drainage of epidural and spinal abscesses 10/2015 presented to ED with fever and relative hypotension. He was admitted for further evaluation. ID: Severe sepsis 2/2 E coli bacteremia and UTI - Tmax 100.4 x 24h - Urine and blood cultures positive for E.coli sensitive to Zosyn; if fever persists torres scan - US bladder unable to assess PVR-bladder volume 160 - Hx of spinal abscess w/o evidence of recurrence, if fever persists, consider MRI spine - pt reports nasal congestion and sinus pressure x 1.5months, will obtain CT sinus Cardiology: Elevated troponins - Likely demand ischemia secondary to hypotension from sepsis - Troponin trended down - Plan further cards w/u once infection resolved - ECHO with RV dilation, question for PE which could explain tachycardia and fever. Lower extremity doppler negative for DVT. Cr has normalized, CTA pending ; continue Heparin gtt : SMILEY, resolved - Creatinine 0.8 today Heme: Anemia - h/h slowly trending down. H/o AVM in stomach s/p argon plasma coagulation, also h/o duodenal erosion on EGD 12/16/15 - occ blood ordered F/E/N Fluids: Cont NS @ 75cc/hr for now. Encourage PO intake Electrolytes: phos 1.5, low, order neutraphos, repeat in am. Nutrition: Low-sodium diet DVT Prophylaxis - On heparin gtt Dispo: Pt stabilized, BP improved, if remains stable, ok for transfer to floor. Visit type - Emergency Visit Emergency Visit: Yes ED Registration Date: 01/11/17 Care time: The patient presented to the Emergency Department on the above date and was hospitalized for further evaluation of their emergent condition. - New Patient This patient is new to me today: Yes Date on this admission: 01/15/17 - Critical Care Critical Care patient: No - Discharge Referral Referred to [facility] No
[2017-01-15] MEDS ORDERED: NAPH,MB-DB/K PH,MBDB POWDER PACKET PO SCH ×2 (10:00→22:00)
[2017-01-15] MEDS ORDERED: BENZOCAINE/MENTH/CETYLPYRD CL 1 EACH LOZENGE MM PRN ×2 (10:09→11:52)
[2017-01-15] MEDS: LACTOBACILLUS ACIDOPHILUS 1 EACH TAB (FP) PO SCH (10:12)
[2017-01-15] MEDS: MULTIVITAMINS (DAILY MVI) TABLET (FP) PO SCH (10:12)
[2017-01-15] MEDS: ASPIRIN COATED 81 MG TABLET.EC PO SCH (10:12)
[2017-01-15] MEDS: RANITIDINE HCL 150 MG TABLET (FP) PO SCH ×2 (10:12→21:10)
[2017-01-15] MEDS: CLOPIDOGREL BISULFATE 75 MG TABLET (FP) PO SCH (10:12)
[2017-01-15] MEDS: MAGNESIUM OXIDE 400 MG TABLET (FP) PO SCH ×2 (10:12→21:09)
[2017-01-15] MEDS: FLUTICASONE PROP 0.05% 16 GM NASAL SPRAY NS SCH ×2 (10:14→21:11)
[2017-01-15] MEDS: MUPIROCIN 2% TOPICAL OINTMENT FOR DECOLONIZATION NS SCH ×2 (10:15→21:10)
[2017-01-15] MEDS: POLYETHYLENE GLYCOL 3350 119 GM BTL PO SCH ×2 (10:16→21:09)
--- NOTE | 2017-01-15 11:13 | PN ---
Physical Exam: SUBJECTIVE: Patient seen and examined patient lying comfortably in bed denies chest pain, sob, palpitations, dizziness. denies fever and chills. patient is on zosyn for urosepsis, still have some spikes of fever CTA shows a saddle embolism, continuw with heparin drip. option for thrombectomy discussed with patient but patient wants to discuss it with his and will let us know. OBJECTIVE: Vital Signs Period Temp Pulse Resp BP Sys/Conner Pulse Ox Last 24 Hr 98.0 F-100.4 F 76-98 12-25 112-143/60-85 100-100 GENERAL: The patient is awake, alert, and fully oriented, in no acute distress. EYES: PERRL, ENT: Ears normal, nares patent, moist mucous membranes. NECK: Trachea midline, LUNGS: Breath sounds equal, clear to auscultation bilaterally, no wheezes, no crackles, no accessory muscle use. HEART:s1s2 normal. ABDOMEN: Soft, nontender, nondistended, normoactive bowel sounds, no guarding, no rebound, EXTREMITIES: 2+ pulses, warm, well-perfused, no edema. NEUROLOGICAL: Cranial nerves II through XII grossly intact. Normal speech PSYCH: Normal mood, normal affect. SKIN: Warm, dry, normal turgor, no rashes or lesions noted Laboratory Results - last 24 hr 01/15/17 01/15/17 01/15/17 05:20 05:20 06:00 WBC 5.4 RBC 3.12 L Hgb 8.2 L Hct 25.5 L MCV 81.7 MCHC 32.2 RDW 15.2 Plt Count 191 D MPV 8.0 PTT (Actin FS) 59.7 H Sodium 146 H Potassium 3.9 Chloride 112 H Carbon Dioxide 25 Anion Gap 9 BUN 13 D Creatinine 0.8 Creat Clearance w eGFR > 60 Random Glucose 92 Calcium 8.1 L Phosphorus 1.5 L D Magnesium 2.2 Total Bilirubin 0.3 D AST 28 D ALT 34 Alkaline Phosphatase 96 Total Protein 5.6 L Albumin 2.2 L Active Medications Generic Name Dose Route Start Last Admin Trade Name Freq PRN Reason Stop Dose Admin Aspirin 81 mg 01/12/17 10:00 01/15/17 10:12 Ecotrin - PO 81 mg DAILY JAYCEE Administration Baclofen 10 mg 01/12/17 21:00 01/14/17 21:13 Lioresal - PO 10 mg DAILY@2100 JAYCEE Administration Benzocaine/Menthol 1 each 01/15/17 10:09 Cepacol Lozenge - MM PRN PRN SORE THROAT Chlorhexidine Gluconate 1 applic 01/12/17 22:00 01/14/17 21:14 Hibiclens For Decolonization - TP 1 applic HS JAYCEE Administration Clopidogrel Bisulfate 75 mg 01/12/17 10:00 01/15/17 10:12 Plavix - PO 75 mg DAILY JAYCEE Administration Docusate Sodium 300 mg 01/14/17 22:00 01/14/17 21:13 Colace - PO 300 mg HS JAYCEE Administration Fluticasone Propionate 1 spray 01/13/17 22:00 01/15/17 10:14 Flonase - NS 1 spray BID JAYCEE Administration Heparin Sodium (Porcine) 1,000 unit 01/12/17 12:47 01/13/17 04:15 Heparin - IVPUSH 1,000 unit PRN PRN Administration Heparin Heparin Sodium (Porcine) 5,000 unit 01/12/17 12:47 Heparin - IVPUSH PRN PRN Heparin Heparin Sodium (Porcine) 25, 500 mls @ 20 mls/hr 01/12/17 13:00 01/14/17 13:50 000 unit/ Sodium Chloride IV 24 mls/hr TITR JAYCEE Administration Protocol 1,000 UNIT/HR Piperacillin Sod/Tazobactam Sod 50 mls @ 100 mls/hr 01/12/17 18:00 01/15/17 10: 11 Zosyn 3.375gm Ivpb (Pre-Docked) IVPB 100 mls/hr Q8H-IV JAYCEE Administration Protocol Sodium Chloride 1,000 mls @ 75 mls/hr 01/13/17 14:15 01/14/17 13:42 Normal Saline - IV 75 mls/hr ASDIR JAYCEE Administration Lactobacillus Acidophilus 1 tab 01/12/17 10:00 01/15/17 10:12 Bacid - PO 1 tab DAILY JAYCEE Administration Magnesium Oxide 400 mg 01/12/17 10:00 01/15/17 10:12 Mag-Ox - PO 400 mg BID JAYCEE Administration Multivitamins/Minerals/Vitamin C 1 tab 01/12/17 10:00 01/15/17 10:12 Tab-A-Vit - PO 1 tab DAILY JAYCEE Administration Mupirocin 1 applic 01/12/17 10:00 01/15/17 10:15 Bactroban Ointment (For Decolonization) - NS 01/17/17 09:59 1 applic BID JAYCEE Administration Polyethylene Glycol 17 gm 01/14/17 22:00 01/15/17 10:16 Miralax (For Daily Use) - PO 17 gm BID JAYCEE Administration Potassium Phos/Sodium Phos 1 packet 01/15/17 10:00 01/15/17 10:13 Phos-Nak Packet - PO 01/15/17 22:01 1 packet BID JAYCEE Administration Ranitidine HCl 150 mg 01/12/17 10:00 01/15/17 10:12 Zantac - PO 150 mg BID JAYCEE Administration Microbiology 01/13/17 06:05 Blood - Peripheral Venous Blood Culture - Preliminary NO GROWTH OBTAINED AFTER 48 HOURS, INCUBATION TO CONTINUE FOR 3 DAYS. 01/13/17 05:50 Blood - Central Line Blood Culture - Preliminary NO GROWTH OBTAINED AFTER 48 HOURS, INCUBATION TO CONTINUE FOR 3 DAYS. 01/11/17 19:50 Blood - Peripheral Venous Blood Culture - Preliminary NO GROWTH OBTAINED AFTER 72 HOURS, INCUBATION TO CONTINUE FOR 2 DAYS. 01/11/17 20:17 Urine - Urine - Catheterized Urine Culture - Final Escherichia Coli 01/11/17 19:50 Blood - Peripheral Venous Blood Culture - Final Escherichia Coli 01/11/17 19:40 Nasopharyngeal Swab Respiratory Virus Panel - Preliminary 01/12/17 11:30 Urine For Antigen Detection Legionella Antigen - Final 01/12/17 11:30 Urine For Antigen Detection Streptococcus pneumoniae Antigen (M - Final 01/11/17 19:40 Nasopharyngeal Swab Influenza Types A,B Antigen ([place]) - Final 01/11/17 19:40 Nasopharyngeal Swab - Final ASSESSMENT/PLAN: 1. sepsis. could be from gram negative bacteremia and uti have some spikes of fever monitor vitals monitor intake/ output on zosyn ID consult appreciated monitor cvp, ( but CVP can be elevated if patient has PE or portal hypertension) [address] reviewed: embolus at bifurcatation of pulmonary artery RV dilated with decreased in function, Patient has been explained regarding option for thrombectomy but patient wants to discuss it with his and will let us know continue with heparin drip keep aptt in therapeutic range monitor for bleeding monitor vitals maintain spo2. 90 2. elevated trop I stress induced trending down 3. SMILEY - improved - could be prerenal - Avoid nephrotoxic medications - monitor creatnine 5. normocytic anemia = - hb 8.2 - Monitor hb 6. F/E/N Fluids: allowed orally Electrolytes: follow in am Nutrition: Low-sodium diet 7. Prophylaxis -on iv heparin Dispo:transfer tele Visit type - Emergency Visit Emergency Visit: Yes ED Registration Date: 01/11/17 Care time: The patient presented to the Emergency Department on the above date and was hospitalized for further evaluation of their emergent condition. - New Patient This patient is new to me today: No - Critical Care Critical Care patient: Yes Total Critical Care Time (in minutes): 45 Critical Care Statement: The care of this patient involved high complexity decision making to prevent further life threatening deterioration of the patient 's condition and/or to evalute & treat vital organ system(s) failure or risk of failure.
[2017-01-15] MEDS ORDERED: HEPARIN NA (PORCINE) 5,000 UNITS/ML 1ML VIAL IVPUSH PRN ×4 (11:52)
--- NOTE | 2017-01-15 12:24 | PN ---
Teaching Attending Note Name of Resident: Judson Coats ATTENDING PHYSICIAN STATEMENT I saw and evaluated the patient. I reviewed the resident's note and discussed the case with the resident. I agree with the resident's findings and plan as documented. SUBJECTIVE: Pt seen and examined in the ICU. +nonproductive cough but no shortness of breath. CTA chest this AM showing saddle embolus with extension mostly into LLL pulmonary arteries as well as SHAILESH infiltrate. Denies chest pain. Low grade temps overnight. OBJECTIVE: Last Vital Signs Temp Pulse Resp BP Pulse Ox 98.0 F 80 22 146/75 100 01/15/17 10:00 01/15/17 12:00 01/15/17 12:00 01/15/17 12:00 01/14/17 20:00 Intake & Output 01/12/17 01/13/17 01/14/17 01/15/17 23:59 23:59 23:59 23:59 Intake Total 3050 2506 3668 1338 Output Total 122 407 3231 Balance 2650 2406 2568 1338 Weight 232 lb 9 oz 242 lb 240 lb 1.6 oz Gen: NAD at rest Heart: RRR Lung: decreased breath sounds at the bases Abd: soft, nontender Ext: no edema CBC, BMP 01/15/17 05:20 01/15/17 05:20 Active Medications Aspirin (Ecotrin -) 81 mg PO DAILY JAYCEE Baclofen (Lioresal -) 10 mg PO DAILY@2100 JAYCEE Benzocaine/Menthol (Cepacol Lozenge -) 1 each MM PRN PRN PRN Reason: SORE THROAT Chlorhexidine Gluconate (Hibiclens For Decolonization -) 1 applic TP HS JAYCEE Clopidogrel Bisulfate (Plavix -) 75 mg PO DAILY JAYCEE Docusate Sodium (Colace -) 300 mg PO HS JAYCEE Fluticasone Propionate (Flonase -) 1 spray NS BID JAYCEE Heparin Sodium (Porcine) (Heparin -) 1,000 unit IVPUSH PRN PRN PRN Reason: Heparin Heparin Sodium (Porcine) (Heparin -) 5,000 unit IVPUSH PRN PRN PRN Reason: Heparin Heparin Sodium (Porcine) (Heparin -) 1,000 unit IVPUSH PRN PRN PRN Reason: Heparin Heparin Sodium (Porcine) (Heparin -) 5,000 unit IVPUSH PRN PRN PRN Reason: Heparin Heparin Sodium (Porcine) 25, (000 unit/ Sodium Chloride) 500 mls @ 20 mls/hr IV TITR JAYCEE; 1,000 UNIT/HR PRN Reason: Protocol Sodium Chloride (Normal Saline -) 1,000 mls @ 75 mls/hr IV ASDIR JAYCEE Piperacillin Sod/Tazobactam Sod (Zosyn 3.375gm Ivpb (Pre-Docked)) 50 mls @ 100 mls/hr IVPB Q8H-IV JAYCEE PRN Reason: Protocol Lactobacillus Acidophilus (Bacid -) 1 tab PO DAILY JAYCEE Magnesium Oxide (Mag-Ox -) 400 mg PO BID JAYCEE Multivitamins/Minerals/Vitamin C (Tab-A-Vit -) 1 tab PO DAILY JAYCEE Mupirocin (Bactroban Ointment (For Decolonization) -) 1 applic NS BID [facility] Stop: 01/17/17 09:59 Polyethylene Glycol (Miralax (For Daily Use) -) 17 gm PO BID [facility] Potassium Phos/Sodium Phos (Phos-Nak Packet -) 1 packet PO BID [facility] Stop: 01/15/17 22:01 Ranitidine HCl (Zantac -) 150 mg PO BID [facility] ASSESSMENT AND PLAN: UTI E Coli Bacteremia Severe Sepsis resolving Neurogenic Bladder Acute Pulmonary Emboli +Troponins likely from above Right Heart Strain Acute Kidney Injury improving - continue antibiotics - monitor fever curve, WBC trend - continue anticoagulation - discussed with patient possible catheter directed thrombolysis/thrombectomy given right heart dysfunction seen on echocardiogram but pt declining at this time - O2 to keep Spo2 >90% - PO as tolerated - can monitor on telelemetry critical care time spent in reviewing chart, evaluating patient and formulating plan 35 min
--- NOTE | 2017-01-15 12:59 | PN ---
Progress Note, Physician History of Present Illness: seen and examined today. coughing and nauseous/vomiting. states he is feeling slightly better. - Current Medication List Current Medications: Active Medications Aspirin (Ecotrin -) 81 mg PO DAILY [facility] Baclofen (Lioresal -) 10 mg PO DAILY@2100 [facility] Benzocaine/Menthol (Cepacol Lozenge -) 1 each MM PRN PRN PRN Reason: SORE THROAT Chlorhexidine Gluconate (Hibiclens For Decolonization -) 1 applic TP HS [facility] Clopidogrel Bisulfate (Plavix -) 75 mg PO DAILY [facility] Docusate Sodium (Colace -) 300 mg PO HS [facility] Fluticasone Propionate (Flonase -) 1 spray NS BID [facility] Heparin Sodium (Porcine) (Heparin -) 1,000 unit IVPUSH PRN PRN PRN Reason: Heparin Heparin Sodium (Porcine) (Heparin -) 5,000 unit IVPUSH PRN PRN PRN Reason: Heparin Heparin Sodium (Porcine) (Heparin -) 1,000 unit IVPUSH PRN PRN PRN Reason: Heparin Heparin Sodium (Porcine) (Heparin -) 5,000 unit IVPUSH PRN PRN PRN Reason: Heparin Heparin Sodium (Porcine) 25, (000 unit/ Sodium Chloride) 500 mls @ 20 mls/hr IV TITR [facility]; 1,000 UNIT/HR PRN Reason: Protocol Sodium Chloride (Normal Saline -) 1,000 mls @ 75 mls/hr IV ASDIR [facility] Piperacillin Sod/Tazobactam Sod (Zosyn 3.375gm Ivpb (Pre-Docked)) 50 mls @ 100 mls/hr IVPB Q8H-IV [facility] PRN Reason: Protocol Lactobacillus Acidophilus (Bacid -) 1 tab PO DAILY [facility] Magnesium Oxide (Mag-Ox -) 400 mg PO BID [facility] Multivitamins/Minerals/Vitamin C (Tab-A-Vit -) 1 tab PO DAILY [facility] Mupirocin (Bactroban Ointment (For Decolonization) -) 1 applic NS BID [facility] Stop: 01/17/17 09:59 Polyethylene Glycol (Miralax (For Daily Use) -) 17 gm PO BID [facility] Potassium Phos/Sodium Phos (Phos-Nak Packet -) 1 packet PO BID [facility] Stop: 01/15/17 22:01 Ranitidine HCl (Zantac -) 150 mg PO BID [facility] - Objective Vital Signs: Vital Signs Temperature 98.0 F 01/15/17 10:00 Pulse Rate 80 01/15/17 12:00 Respiratory Rate 22 01/15/17 12:00 Blood Pressure 146/75 01/15/17 12:00 O2 Sat by Pulse Oximetry (%) 100 01/14/17 20:00 Constitutional: Yes: No Distress, Calm, Obese Eyes: Yes: Conjunctiva Clear, EOM Intact, PERRL HENT: Yes: Atraumatic, Normocephalic Cardiovascular: Yes: Regular Rate and Rhythm, S1, S2. No: Bradycardia, Tachycardia, Pulse Irregular, Bruit, JVD, Gallop, Murmur, Rub, S3, S4, Varicosities Respiratory: Yes: Regular, Cough, Diminished, On Nasal O2. No: Rales, Rhonchi, Wheezes Gastrointestinal: Yes: Normal Bowel Sounds, Soft. No: Distention, Tenderness Musculoskeletal: Yes: WNL Extremities: Yes: WNL Edema: No Peripheral Pulses WNL: Yes Peripheral Pulses: Left Doralis Pedis: 2+, Right Dorsalis Pedis: 2+ Neurological: Yes: Alert, Oriented Psychiatric: Yes: Alert, Oriented Labs: CBC, BMP 01/15/17 05:20 01/15/17 05:20 INR, PTT INR 1.28 (0.82-1.09) H 01/11/17 19:40 - ....Imaging Chest X-ray: Report Reviewed, Image Reviewed EKG: Report Reviewed, Image Reviewed Other: Report Reviewed, Image Reviewed (tele-nsr, pvcs, apcs) Assessment/Plan 61 year old man h/o HTN, HLD, CVA admitted with fever noted to have an elevated troponin, RV dysfunction on echo and confirmed today to have b/l pulmonary emboli. Elevated TnI and RV dilatation/hypokinesis likely secondary to pulmonary embolism not type I CA HTN HLD Pulmonary embolism REC: On heparin for PE IR to evaluate for possible thrombolysis care as per ICU HTN adequately controlled, does not require medical rx as this time Clarify indication for ASA and Plavix (presume due to h/o CVA), does not appear to require dual anti-platelet therapy from cardiac standpoint.
[2017-01-15] MEDS: HEPARIN - 25,000 UNIT in SODIUM CHLORIDE 495 ML IV SCH (17:20)
[2017-01-15] MEDS: SODIUM CHLORIDE 1,000 ML IV SCH (17:20)
--- NOTE | 2017-01-15 18:01 | PN ---
Progress Note, Physician History of Present Illness: patient doing well still low grade fever ct scan done patient says that he is feeling better pul embolus in the ct scan - Current Medication List Current Medications: Active Medications Aspirin (Ecotrin -) 81 mg PO DAILY [facility] Baclofen (Lioresal -) 10 mg PO DAILY@2100 [facility] Benzocaine/Menthol (Cepacol Lozenge -) 1 each MM PRN PRN PRN Reason: SORE THROAT Chlorhexidine Gluconate (Hibiclens For Decolonization -) 1 applic TP HS [facility] Clopidogrel Bisulfate (Plavix -) 75 mg PO DAILY [facility] Docusate Sodium (Colace -) 300 mg PO HS [facility] Fluticasone Propionate (Flonase -) 1 spray NS BID [facility] Heparin Sodium (Porcine) (Heparin -) 1,000 unit IVPUSH PRN PRN PRN Reason: Heparin Heparin Sodium (Porcine) (Heparin -) 5,000 unit IVPUSH PRN PRN PRN Reason: Heparin Heparin Sodium (Porcine) (Heparin -) 1,000 unit IVPUSH PRN PRN PRN Reason: Heparin Heparin Sodium (Porcine) (Heparin -) 5,000 unit IVPUSH PRN PRN PRN Reason: Heparin Heparin Sodium (Porcine) 25, (000 unit/ Sodium Chloride) 500 mls @ 20 mls/hr IV TITR JAYCEE; 1,000 UNIT/HR PRN Reason: Protocol Last Admin: 01/15/17 17:20 Dose: 20 mls/hr Sodium Chloride (Normal Saline -) 1,000 mls @ 75 mls/hr IV ASDIR [facility] Last Admin: 01/15/17 17:20 Dose: 75 mls/hr Piperacillin Sod/Tazobactam Sod (Zosyn 3.375gm Ivpb (Pre-Docked)) 50 mls @ 100 mls/hr IVPB Q8H-IV [facility] PRN Reason: Protocol Last Admin: 01/15/17 17:19 Dose: 100 mls/hr Lactobacillus Acidophilus (Bacid -) 1 tab PO DAILY [facility] Magnesium Oxide (Mag-Ox -) 400 mg PO BID [facility] Multivitamins/Minerals/Vitamin C (Tab-A-Vit -) 1 tab PO DAILY [facility] Mupirocin (Bactroban Ointment (For Decolonization) -) 1 applic NS BID [facility] Stop: 01/17/17 09:59 Polyethylene Glycol (Miralax (For Daily Use) -) 17 gm PO BID [facility] Potassium Phos/Sodium Phos (Phos-Nak Packet -) 1 packet PO BID [facility] Stop: 01/15/17 22:01 Ranitidine HCl (Zantac -) 150 mg PO BID [facility] - Objective Vital Signs: Vital Signs Temperature 98 F 01/15/17 16:00 Pulse Rate 84 01/15/17 16:00 Respiratory Rate 18 01/15/17 16:00 Blood Pressure 144/74 01/15/17 16:00 O2 Sat by Pulse Oximetry (%) 100 01/14/17 20:00 Constitutional: Yes: No Distress, Calm HENT: Yes: Atraumatic Neck: Yes: Supple Cardiovascular: Yes: Regular Rate and Rhythm Respiratory: Yes: Regular, On Nasal O2, Poor Air Entry Gastrointestinal: Yes: Normal Bowel Sounds, Soft Musculoskeletal: Yes: WNL Extremities: Yes: Other (rt sided weakness) Neurological: Yes: Alert, Oriented Psychiatric: Yes: Alert, Oriented Labs: CBC, BMP 01/15/17 05:20 01/15/17 05:20 INR, PTT INR 1.28 (0.82-1.09) H 01/11/17 19:40 - ....Imaging Cat Scan: Report Reviewed, Image Reviewed Assessment/Plan sepsis josé luis h/o of spinal abscess incontinence increased trop fever leukocytosis pul embolus sinusitis plan continue zosyn thrombectomy tomorrow get an ENT opinion if anything needs to be done for air fluid level close monitoring rest ct as per icu cc time 40 min
[2017-01-15] MEDS ORDERED: OXYCODONE/APAP 5/325MG COMBO TABLET PO ONE (19:48)
[2017-01-15] MEDS ORDERED: oxyCODONE HCL 5 MG TABLET PO ONE (20:30)
[2017-01-15] MEDS ORDERED: ACETAMINOPHEN 325 MG TABLET (FP) PO ONE (20:30)
[2017-01-15] MEDS ORDERED: PT OWN MED DRAWER 7, Y5N ONE (20:46)
[2017-01-15] MEDS: BACLOFEN 10 MG TABLET (FP) PO SCH (20:47)
[2017-01-15] MEDS: DOCUSATE SODIUM 100 MG CAPSULE (FP) PO SCH (21:09)
[2017-01-15] MEDS: CHLORHEXIDINE GLUCONATE 4% CLEANSER FOR DECOLONIZATION TP SCH (21:10)
[2017-01-16] MEDS: PIPERACILLIN/TAZOB 3.375 GM 50 ML IVPB SCH ×3 (02:49→17:27)
[2017-01-16] MEDS: HEPARIN - 25,000 UNIT in SODIUM CHLORIDE 495 ML IV SCH ×2 (06:08→22:22)
[2017-01-16] MEDS: SODIUM CHLORIDE 1,000 ML IV SCH ×2 (06:08→17:34)
[2017-01-16 06:28] LABS: BASOPHIL 0.5 % (0-2.0); EOSINOPHIL 3.3 % (0-4.5); MCHC 31.5 g/dl (32.0-35.9); MEAN CELL VOLUME 82.5 fl (80-96); MEAN PLT VOLUME 7.6 fl (7.5-11.1); NEUTROPHILS 69.3 % (42.8-82.8); PLATELET COUNT 213 K/MM3 (134-434); RDW 15.1 % (11.9-15.9); WHITE BLOOD COUNT 4.8 K/mm3 (4.0-10.0)
[2017-01-16 06:40] LABS: INR 1.13 (0.82-1.09); PROTHROMBIN TIME (PATIENT) 12.5 SEC (9.98-11.88)
[2017-01-16 07:19] LABS: CREATININE 0.8 mg/dL (0.7-1.3)
--- NOTE | 2017-01-16 08:49 | PN ---
Progress Note, Physician Chief Complaint: alert and oriented TELE: NSR CTA with large PE, has been on heparin now scheduled for thrombolysis - Current Medication List Current Medications: Active Medications Aspirin (Ecotrin -) 81 mg PO DAILY [facility] Baclofen (Lioresal -) 10 mg PO DAILY@2100 [facility] Last Admin: 01/15/17 20:47 Dose: 10 mg Benzocaine/Menthol (Cepacol Lozenge -) 1 each MM PRN PRN PRN Reason: SORE THROAT Chlorhexidine Gluconate (Hibiclens For Decolonization -) 1 applic TP HS [facility] Last Admin: 01/15/17 21:10 Dose: 1 applic Clopidogrel Bisulfate (Plavix -) 75 mg PO DAILY [facility] Docusate Sodium (Colace -) 300 mg PO HS [facility] Last Admin: 01/15/17 21:09 Dose: 300 mg Fluticasone Propionate (Flonase -) 1 spray NS BID [facility] Last Admin: 01/15/17 21:11 Dose: 1 spray Heparin Sodium (Porcine) (Heparin -) 1,000 unit IVPUSH PRN PRN PRN Reason: Heparin Heparin Sodium (Porcine) (Heparin -) 5,000 unit IVPUSH PRN PRN PRN Reason: Heparin Heparin Sodium (Porcine) (Heparin -) 1,000 unit IVPUSH PRN PRN PRN Reason: Heparin Heparin Sodium (Porcine) (Heparin -) 5,000 unit IVPUSH PRN PRN PRN Reason: Heparin Heparin Sodium (Porcine) 25, (000 unit/ Sodium Chloride) 500 mls @ 20 mls/hr IV TITR [facility]; 1,000 UNIT/HR PRN Reason: Protocol Last Admin: 01/16/17 06:08 Dose: 24 mls/hr Sodium Chloride (Normal Saline -) 1,000 mls @ 75 mls/hr IV ASDIR [facility] Last Admin: 01/16/17 06:08 Dose: 75 mls/hr Piperacillin Sod/Tazobactam Sod (Zosyn 3.375gm Ivpb (Pre-Docked)) 50 mls @ 100 mls/hr IVPB Q8H-IV [facility] PRN Reason: Protocol Last Admin: 01/16/17 02:49 Dose: 100 mls/hr Lactobacillus Acidophilus (Bacid -) 1 tab PO DAILY [facility] Magnesium Oxide (Mag-Ox -) 400 mg PO BID [facility] Last Admin: 01/15/17 21:09 Dose: 400 mg Multivitamins/Minerals/Vitamin C (Tab-A-Vit -) 1 tab PO DAILY [facility] Mupirocin (Bactroban Ointment (For Decolonization) -) 1 applic NS BID [facility] Stop: 01/17/17 09:59 Last Admin: 01/15/17 21:10 Dose: 1 applic Oxycodone HCl (Roxicodone -) 5 mg PO Q6H PRN PRN Reason: PAIN Polyethylene Glycol (Miralax (For Daily Use) -) 17 gm PO BID [facility] Last Admin: 01/15/17 21:09 Dose: 17 grams Ranitidine HCl (Zantac -) 150 mg PO BID [facility] Last Admin: 01/15/17 21:10 Dose: 150 mg - Objective Vital Signs: Vital Signs Temperature 99.1 F 01/16/17 06:04 Pulse Rate 80 01/16/17 08:00 Respiratory Rate 18 01/16/17 08:00 Blood Pressure 143/80 01/16/17 08:00 O2 Sat by Pulse Oximetry (%) 98 01/15/17 23:18 Constitutional: Yes: No Distress Cardiovascular: Yes: Regular Rate and Rhythm Respiratory: Yes: CTA Bilaterally Gastrointestinal: Yes: Soft, Abdomen, Obese Edema: Yes Edema: LLE: 1+, RLE: 1+ Neurological: Yes: Alert, Oriented Labs: CBC, BMP 01/16/17 05:40 01/16/17 05:40 INR, PTT INR 1.13 (0.82-1.09) 01/16/17 05:40 Microbiology 01/13/17 06:05 Blood - Peripheral Venous Blood Culture - Preliminary NO GROWTH OBTAINED AFTER 72 HOURS, INCUBATION TO CONTINUE FOR 2 DAYS. 01/13/17 05:50 Blood - Central Line Blood Culture - Preliminary NO GROWTH OBTAINED AFTER 72 HOURS, INCUBATION TO CONTINUE FOR 2 DAYS. Laboratory Tests 01/16/17 01/16/17 01/16/17 05:40 05:40 08:40 WBC 4.8 Hgb 8.2 L Hct 26.0 L Plt Count 213 PTT (Actin FS) Pending Sodium 146 H Potassium 3.8 Creatinine 0.8 - ....Imaging EKG: Image Reviewed Assessment/Plan 61 year old man h/o HTN, HLD, CVA admitted with fever noted to have an elevated troponin, RV dysfunction on echo and confirmed today to have b/l pulmonary emboli. Elevated TnI and RV dilatation/hypokinesis likely secondary to pulmonary embolism HTN HLD REC: On heparin for PE IR thrombolysis planned
[2017-01-16] MEDS: MAGNESIUM OXIDE 400 MG TABLET (FP) PO SCH ×2 (09:26→22:00)
[2017-01-16] MEDS: MULTIVITAMINS (DAILY MVI) TABLET (FP) PO SCH (09:26)
[2017-01-16] MEDS: RANITIDINE HCL 150 MG TABLET (FP) PO SCH ×2 (09:26→22:00)
[2017-01-16] MEDS: LACTOBACILLUS ACIDOPHILUS 1 EACH TAB (FP) PO SCH (09:26)
[2017-01-16] MEDS: CLOPIDOGREL BISULFATE 75 MG TABLET (FP) PO SCH (09:26)
[2017-01-16] MEDS: ASPIRIN COATED 81 MG TABLET.EC PO SCH (09:27)
[2017-01-16] MEDS: POLYETHYLENE GLYCOL 3350 119 GM BTL PO SCH ×2 (09:27→22:00)
[2017-01-16] MEDS: MUPIROCIN 2% TOPICAL OINTMENT FOR DECOLONIZATION NS SCH ×2 (09:27→22:00)
[2017-01-16] MEDS ORDERED: oxyCODONE HCL 5 MG TABLET ONE (09:32)
[2017-01-16] MEDS: oxyCODONE HCL 5 MG TABLET PO PRN ×2 (09:39→17:28)
[2017-01-16] MEDS: FLUTICASONE PROP 0.05% 16 GM NASAL SPRAY NS SCH ×2 (10:00→22:00)
--- NOTE | 2017-01-16 10:19 | PN ---
Progress Note, Physician History of Present Illness: stable no complaints going for pul thrombectomy no new issues - Current Medication List Current Medications: Active Medications Aspirin (Ecotrin -) 81 mg PO DAILY [facility] Last Admin: 01/16/17 09:27 Dose: 81 mg Baclofen (Lioresal -) 10 mg PO DAILY@2100 [facility] Last Admin: 01/15/17 20:47 Dose: 10 mg Benzocaine/Menthol (Cepacol Lozenge -) 1 each MM PRN PRN PRN Reason: SORE THROAT Chlorhexidine Gluconate (Hibiclens For Decolonization -) 1 applic TP HS [facility] Last Admin: 01/15/17 21:10 Dose: 1 applic Clopidogrel Bisulfate (Plavix -) 75 mg PO DAILY [facility] Last Admin: 01/16/17 09:26 Dose: 75 mg Docusate Sodium (Colace -) 300 mg PO HS [facility] Last Admin: 01/15/17 21:09 Dose: 300 mg Fluticasone Propionate (Flonase -) 1 spray NS BID [facility] Last Admin: 01/15/17 21:11 Dose: 1 spray Heparin Sodium (Porcine) (Heparin -) 1,000 unit IVPUSH PRN PRN PRN Reason: Heparin Heparin Sodium (Porcine) (Heparin -) 5,000 unit IVPUSH PRN PRN PRN Reason: Heparin Heparin Sodium (Porcine) (Heparin -) 1,000 unit IVPUSH PRN PRN PRN Reason: Heparin Heparin Sodium (Porcine) (Heparin -) 5,000 unit IVPUSH PRN PRN PRN Reason: Heparin Heparin Sodium (Porcine) 25, (000 unit/ Sodium Chloride) 500 mls @ 20 mls/hr IV TITR [facility]E; 1,000 UNIT/HR PRN Reason: Protocol Last Admin: 01/16/17 06:08 Dose: 24 mls/hr Sodium Chloride (Normal Saline -) 1,000 mls @ 75 mls/hr IV ASDIR [facility] Last Admin: 01/16/17 06:08 Dose: 75 mls/hr Piperacillin Sod/Tazobactam Sod (Zosyn 3.375gm Ivpb (Pre-Docked)) 50 mls @ 100 mls/hr IVPB Q8H-IV [facility] PRN Reason: Protocol Last Admin: 01/16/17 09:21 Dose: 100 mls/hr Lactobacillus Acidophilus (Bacid -) 1 tab PO DAILY [facility] Last Admin: 01/16/17 09:26 Dose: 1 tab Magnesium Oxide (Mag-Ox -) 400 mg PO BID [facility] Last Admin: 01/16/17 09:26 Dose: 400 mg Multivitamins/Minerals/Vitamin C (Tab-A-Vit -) 1 tab PO DAILY [facility] Last Admin: 01/16/17 09:26 Dose: 1 tab Mupirocin (Bactroban Ointment (For Decolonization) -) 1 applic NS BID [facility] Stop: 01/17/17 09:59 Last Admin: 01/16/17 09:27 Dose: 1 applic Oxycodone HCl (Roxicodone -) 5 mg PO Q6H PRN PRN Reason: PAIN Last Admin: 01/16/17 09:39 Dose: 5 mg Polyethylene Glycol (Miralax (For Daily Use) -) 17 gm PO BID [facility] Last Admin: 01/16/17 09:27 Dose: 17 grams Ranitidine HCl (Zantac -) 150 mg PO BID [facility] Last Admin: 01/16/17 09:26 Dose: 150 mg - Objective Vital Signs: Vital Signs Temperature 99.1 F 01/16/17 06:04 Pulse Rate 76 01/16/17 09:10 Respiratory Rate 18 01/16/17 08:00 Blood Pressure 143/80 01/16/17 08:00 O2 Sat by Pulse Oximetry (%) 98 01/16/17 09:10 Constitutional: Yes: No Distress, Calm Cardiovascular: Yes: Regular Rate and Rhythm Respiratory: Yes: Regular, On Nasal O2, Poor Air Entry Gastrointestinal: Yes: Normal Bowel Sounds, Soft Musculoskeletal: Yes: Other Extremities: Yes: Other (rt sided weakness) Neurological: Yes: Alert, Oriented Psychiatric: Yes: Alert, Oriented Labs: CBC, BMP 01/16/17 05:40 01/16/17 05:40 INR, PTT INR 1.13 (0.82-1.09) 01/16/17 05:40 Assessment/Plan sepsis josé luis h/o of spinal abscess incontinence increased trop fever leukocytosis pul embolus sinusitis plan continue zosyn thrombectomy today ENT evaluation close monitoring rest ct as per icu cc time 40 min
[2017-01-16] MEDS ORDERED: ALTEPLASE 50MG 25 MG in SODIUM CHLORIDE 250 ML IVPB ONE (10:30)
--- NOTE | 2017-01-16 11:49 | PN ---
Teaching Attending Note Name of Resident: Judson Coats ATTENDING PHYSICIAN STATEMENT I saw and evaluated the patient. I reviewed the resident's note and discussed the case with the resident. I agree with the resident's findings and plan as documented. SUBJECTIVE: Pt seen and examined in the ICU. Denies shortness of breath, chest pain or palpitations. Agreed to thrombolysis/thrombectomy. OBJECTIVE: Last Vital Signs Temp Pulse Resp BP Pulse Ox 99.1 F 76 18 143/80 98 01/16/17 06:04 01/16/17 09:10 01/16/17 08:00 01/16/17 08:00 01/16/17 09:10 Intake & Output 01/13/17 01/14/17 01/15/17 01/16/17 23:59 23:59 23:59 23:59 Intake Total 2506 3668 3066 1238 Output Total 100 1100 1100 500 Balance 2406 2568 1966 738 Weight 242 lb 240 lb 1.6 oz 242 lb 4.608 oz Gen: NAD at rest Heart: RRR Lung: decreased breath sounds at the bases Abd: soft, nontender Ext: no edema CBC, BMP 01/16/17 05:40 01/16/17 05:40 Active Medications Aspirin (Ecotrin -) 81 mg PO DAILY [facility] Last Admin: 01/16/17 09:27 Dose: 81 mg Baclofen (Lioresal -) 10 mg PO DAILY@2100 [facility] Last Admin: 01/15/17 20:47 Dose: 10 mg Benzocaine/Menthol (Cepacol Lozenge -) 1 each MM PRN PRN PRN Reason: SORE THROAT Chlorhexidine Gluconate (Hibiclens For Decolonization -) 1 applic TP HS [facility] Last Admin: 01/15/17 21:10 Dose: 1 applic Clopidogrel Bisulfate (Plavix -) 75 mg PO DAILY [facility] Last Admin: 01/16/17 09:26 Dose: 75 mg Docusate Sodium (Colace -) 300 mg PO HS [facility] Last Admin: 01/15/17 21:09 Dose: 300 mg Fluticasone Propionate (Flonase -) 1 spray NS BID [facility] Last Admin: 01/15/17 21:11 Dose: 1 spray Heparin Sodium (Porcine) (Heparin -) 1,000 unit IVPUSH PRN PRN PRN Reason: Heparin Heparin Sodium (Porcine) (Heparin -) 5,000 unit IVPUSH PRN PRN PRN Reason: Heparin Heparin Sodium (Porcine) (Heparin -) 1,000 unit IVPUSH PRN PRN PRN Reason: Heparin Heparin Sodium (Porcine) (Heparin -) 5,000 unit IVPUSH PRN PRN PRN Reason: Heparin Heparin Sodium (Porcine) 25, (000 unit/ Sodium Chloride) 500 mls @ 20 mls/hr IV TITR JAYCEE; 1,000 UNIT/HR PRN Reason: Protocol Last Admin: 01/16/17 06:08 Dose: 24 mls/hr Sodium Chloride (Normal Saline -) 1,000 mls @ 75 mls/hr IV ASDIR [facility] Last Admin: 01/16/17 06:08 Dose: 75 mls/hr Piperacillin Sod/Tazobactam Sod (Zosyn 3.375gm Ivpb (Pre-Docked)) 50 mls @ 100 mls/hr IVPB Q8H-IV [facility] PRN Reason: Protocol Last Admin: 01/16/17 09:21 Dose: 100 mls/hr Alteplase, Recombinant 25 mg/ (Sodium Chloride) 250 mls @ 5 mls/hr IVPB ONCE ONE PRN Reason: 0.5 MG/HR Stop: 01/18/17 12:29 Alteplase, Recombinant 25 mg/ (Sodium Chloride) 250 mls @ 5 mls/hr IVPB ONCE ONE PRN Reason: 0.5 MG/HR Stop: 01/18/17 12:29 Lactobacillus Acidophilus (Bacid -) 1 tab PO DAILY [facility] Last Admin: 01/16/17 09:26 Dose: 1 tab Magnesium Oxide (Mag-Ox -) 400 mg PO BID [facility] Last Admin: 01/16/17 09:26 Dose: 400 mg Multivitamins/Minerals/Vitamin C (Tab-A-Vit -) 1 tab PO DAILY [facility] Last Admin: 01/16/17 09:26 Dose: 1 tab Mupirocin (Bactroban Ointment (For Decolonization) -) 1 applic NS BID [facility] Stop: 01/17/17 09:59 Last Admin: 01/16/17 09:27 Dose: 1 applic Oxycodone HCl (Roxicodone -) 5 mg PO Q6H PRN PRN Reason: PAIN Last Admin: 01/16/17 09:39 Dose: 5 mg Polyethylene Glycol (Miralax (For Daily Use) -) 17 gm PO BID [facility] Last Admin: 01/16/17 09:27 Dose: 17 grams Ranitidine HCl (Zantac -) 150 mg PO BID [facility] Last Admin: 01/16/17 09:26 Dose: 150 mg ASSESSMENT AND PLAN: UTI E Coli Bacteremia Severe Sepsis resolving Neurogenic Bladder Acute Pulmonary Emboli +Troponins likely from above Right Heart Strain Acute Kidney Injury improving - for catheter directed thrombectomy/thrombolysis by IR - continue antibiotics - monitor fever curve, WBC trend - continue anticoagulation - O2 to keep Spo2 >90% - PO as tolerated - continue ICU monitoring during thrombolytic therapy critical care time spent in reviewing chart, evaluating patient and formulating plan 35 min
--- NOTE | 2017-01-16 12:18 | PN ---
Physical Exam: SUBJECTIVE: Patient seen and examined feels better denies cheat pain, sob, palpitations, nausea, vomiting, complain of chronic back pain. OBJECTIVE: Vital Signs Period Temp Pulse Resp BP Sys/Conner Pulse Ox Last 24 Hr 98 F-99.1 F 58-88 14-20 114-164/62-93 96-100 GENERAL: The patient is awake, alert, and fully oriented, in no acute distress. EYES: PERRL, ENT: Ears normal, nares patent, moist mucous membranes. NECK: Trachea midline, LUNGS: Breath sounds equal, clear to auscultation bilaterally, no wheezes, no accessory muscle use. HEART:s1s2 normal. ABDOMEN: Soft, nontender, nondistended, normoactive bowel sounds, no guarding, no rebound, EXTREMITIES: 2+ pulses, warm, well-perfused, NEUROLOGICAL: Cranial nerves II through XII grossly intact. Normal speech PSYCH: Normal mood, normal affect. SKIN: Warm, dry, normal turgor, Laboratory Results - last 24 hr 01/16/17 01/16/17 01/16/17 05:40 05:40 05:40 WBC 4.8 RBC 3.14 L Hgb 8.2 L Hct 26.0 L MCV 82.5 MCHC 31.5 L RDW 15.1 Plt Count 213 MPV 7.6 Neutrophils % 69.3 Lymphocytes % 17.1 D Monocytes % 9.8 Eosinophils % 3.3 D Basophils % 0.5 INR 1.13 PTT (Actin FS) Sodium 146 H Potassium 3.8 Chloride 112 H Carbon Dioxide 25 Anion Gap 9 BUN 11 Creatinine 0.8 Random Glucose 90 Calcium 8.0 L Stool Occult Blood 01/16/17 01/16/17 07:00 08:40 WBC RBC Hgb Hct MCV MCHC RDW Plt Count MPV Neutrophils % Lymphocytes % Monocytes % Eosinophils % Basophils % INR PTT (Actin FS) 58.4 H Sodium Potassium Chloride Carbon Dioxide Anion Gap BUN Creatinine Random Glucose Calcium Stool Occult Blood Negative Active Medications Generic Name Dose Route Start Last Admin Trade Name Freq PRN Reason Stop Dose Admin Aspirin 81 mg 01/16/17 10:00 01/16/17 09:27 Ecotrin - PO 81 mg DAILY JAY[facility]E Administration Baclofen 10 mg 01/15/17 21:00 01/15/17 20:47 Lioresal - PO 10 mg DAILY@2100 [facility] Administration Benzocaine/Menthol 1 each 01/15/17 11:52 Cepacol Lozenge - MM PRN PRN SORE THROAT Chlorhexidine Gluconate 1 applic 01/15/17 22:00 01/15/17 21:10 Hibiclens For Decolonization - TP 1 applic HS [facility]E Administration Clopidogrel Bisulfate 75 mg 01/16/17 10:00 01/16/17 09:26 Plavix - PO 75 mg DAILY [facility] Administration Docusate Sodium 300 mg 01/15/17 22:00 01/15/17 21:09 Colace - PO 300 mg HS [facility] Administration Fluticasone Propionate 1 spray 01/15/17 22:00 01/15/17 21:11 Flonase - NS 1 spray BID [facility] Administration Heparin Sodium (Porcine) 1,000 unit 01/15/17 11:52 Heparin - IVPUSH PRN PRN Heparin Heparin Sodium (Porcine) 5,000 unit 01/15/17 11:52 Heparin - IVPUSH PRN PRN Heparin Heparin Sodium (Porcine) 1,000 unit 01/15/17 11:52 Heparin - IVPUSH PRN PRN Heparin Heparin Sodium (Porcine) 5,000 unit 01/15/17 11:52 Heparin - IVPUSH PRN PRN Heparin Heparin Sodium (Porcine) 25, 500 mls @ 20 mls/hr 01/15/17 11:52 01/16/17 06:08 000 unit/ Sodium Chloride IV 24 mls/hr TITR JAYCEE Administration Protocol 1,000 UNIT/HR Sodium Chloride 1,000 mls @ 75 mls/hr 01/15/17 11:52 01/16/17 06:08 Normal Saline - IV 75 mls/hr ASDIR JAYCEE Administration Piperacillin Sod/Tazobactam Sod 50 mls @ 100 mls/hr 01/15/17 18:00 01/16/17 09: 21 Zosyn 3.375gm Ivpb (Pre-Docked) IVPB 100 mls/hr Q8H-IV JAYCEE Administration Protocol Alteplase, Recombinant 25 mg/ 250 mls @ 5 mls/hr 01/16/17 10:30 Sodium Chloride IVPB 01/18/17 12:29 ONCE ONE 0.5 MG/HR Alteplase, Recombinant 25 mg/ 250 mls @ 5 mls/hr 01/16/17 10:30 Sodium Chloride IVPB 01/18/17 12:29 ONCE ONE 0.5 MG/HR Lactobacillus Acidophilus 1 tab 01/16/17 10:00 01/16/17 09:26 Bacid - PO 1 tab DAILY [facility] Administration Magnesium Oxide 400 mg 01/15/17 22:00 01/16/17 09:26 Mag-Ox - PO 400 mg BID [facility] Administration Multivitamins/Minerals/Vitamin C 1 tab 01/16/17 10:00 01/16/17 09:26 Tab-A-Vit - PO 1 tab DAILY [facility] Administration Mupirocin 1 applic 01/15/17 22:00 01/16/17 09:27 Bactroban Ointment (For Decolonization) - NS 01/17/17 09:59 1 applic BID [facility] Administration Oxycodone HCl 5 mg 01/16/17 08:14 01/16/17 09:39 Roxicodone - PO 5 mg Q6H PRN Administration PAIN Polyethylene Glycol 17 gm 01/15/17 22:00 01/16/17 09:27 Miralax (For Daily Use) - PO 17 grams BID [facility] Administration Ranitidine HCl 150 mg 01/15/17 22:00 01/16/17 09:26 Zantac - PO 150 mg BID [facility] Administration ASSESSMENT/PLAN: 1. sepsis. 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 elevated trop I stress induced trending down 3. SMILEY - improved - could be prerenal - Avoid nephrotoxic medications - monitor creatnine 5. normocytic anemia = - hb 8.2 - Monitor hb 6. F/E/N Fluids: allowed orally Electrolytes: follow in am Nutrition: Low-sodium diet 7. Prophylaxis -on iv heparin GI prophylaxis : zantac bid Dispo:in icu Visit type - Emergency Visit Emergency Visit: Yes ED Registration Date: 01/11/17 Care time: The patient presented to the Emergency Department on the above date and was hospitalized for further evaluation of their emergent condition. - New Patient This patient is new to me today: No - Critical Care Critical Care patient: Yes Total Critical Care Time (in minutes): 45 Critical Care Statement: The care of this patient involved high complexity decision making to prevent further life threatening deterioration of the patient 's condition and/or to evalute & treat vital organ system(s) failure or risk of failure.
--- NOTE | 2017-01-16 12:50 | PN ---
Progress Note (short form) - Note Progress Note: Subjective: The patient was seen and examined at the bedside, he denies any pain at this time. For thrombolysis today Current Medications Generic Name Dose Route Start Last Admin Trade Name Fidel PRN Reason Stop Dose Admin Aspirin 81 mg 01/16/17 10:00 01/16/17 09:27 Ecotrin - PO 81 mg DAILY JAYCEE Administration Baclofen 10 mg 01/15/17 21:00 01/15/17 20:47 Lioresal - PO 10 mg DAILY@2100 JAYCEE Administration Benzocaine/Menthol 1 each 01/15/17 11:52 Cepacol Lozenge - MM PRN PRN SORE THROAT Chlorhexidine Gluconate 1 applic 01/15/17 22:00 01/15/17 21:10 Hibiclens For Decolonization - TP 1 applic HS JAYCEE Administration Clopidogrel Bisulfate 75 mg 01/16/17 10:00 01/16/17 09:26 Plavix - PO 75 mg DAILY JAYCEE Administration Docusate Sodium 300 mg 01/15/17 22:00 01/15/17 21:09 Colace - PO 300 mg HS JAYCEE Administration Fluticasone Propionate 1 spray 01/15/17 22:00 01/15/17 21:11 Flonase - NS 1 spray BID JAYCEE Administration Heparin Sodium (Porcine) 1,000 unit 01/15/17 11:52 Heparin - IVPUSH PRN PRN Heparin Heparin Sodium (Porcine) 5,000 unit 01/15/17 11:52 Heparin - IVPUSH PRN PRN Heparin Heparin Sodium (Porcine) 1,000 unit 01/15/17 11:52 Heparin - IVPUSH PRN PRN Heparin Heparin Sodium (Porcine) 5,000 unit 01/15/17 11:52 Heparin - IVPUSH PRN PRN Heparin Heparin Sodium (Porcine) 25, 500 mls @ 20 mls/hr 01/15/17 11:52 01/16/17 06:08 000 unit/ Sodium Chloride IV 24 mls/hr TITR JAYCEE Administration Protocol 1,000 UNIT/HR Sodium Chloride 1,000 mls @ 75 mls/hr 01/15/17 11:52 01/16/17 06:08 Normal Saline - IV 75 mls/hr ASDIR JAYCEE Administration Piperacillin Sod/Tazobactam Sod 50 mls @ 100 mls/hr 01/15/17 18:00 01/16/17 09: 21 Zosyn 3.375gm Ivpb (Pre-Docked) IVPB 100 mls/hr Q8H-IV JAYCEE Administration Protocol Alteplase, Recombinant 25 mg/ 250 mls @ 5 mls/hr 01/16/17 10:30 Sodium Chloride IVPB 01/18/17 12:29 ONCE ONE 0.5 MG/HR Alteplase, Recombinant 25 mg/ 250 mls @ 5 mls/hr 01/16/17 10:30 Sodium Chloride IVPB 01/18/17 12:29 ONCE ONE 0.5 MG/HR Lactobacillus Acidophilus 1 tab 01/16/17 10:00 01/16/17 09:26 Bacid - PO 1 tab DAILY JAYCEE Administration Magnesium Oxide 400 mg 01/15/17 22:00 01/16/17 09:26 Mag-Ox - PO 400 mg BID JAYCEE Administration Multivitamins/Minerals/Vitamin C 1 tab 01/16/17 10:00 01/16/17 09:26 Tab-A-Vit - PO 1 tab DAILY JAYCEE Administration Mupirocin 1 applic 01/15/17 22:00 01/16/17 09:27 Bactroban Ointment (For Decolonization) - NS 01/17/17 09:59 1 applic BID JAYCEE Administration Oxycodone HCl 5 mg 01/16/17 08:14 01/16/17 09:39 Roxicodone - PO 5 mg Q6H PRN Administration PAIN Polyethylene Glycol 17 gm 01/15/17 22:00 01/16/17 09:27 Miralax (For Daily Use) - PO 17 grams BID JAYCEE Administration Ranitidine HCl 150 mg 01/15/17 22:00 01/16/17 09:26 Zantac - PO 150 mg BID JAYCEE Administration Objective: Vital Signs Period Temp Pulse Resp BP Sys/Conenr Pulse Ox Last 24 Hr 98 F-99.1 F 58-88 14-20 114-164/62-93 96-100 Physical Exam: General: NAD, A&Ox3 Lungs: CTA bilaterally Heart: RRR, S1S2 Abd: Soft, non-tender, non-distended. Normoactive bowel sounds Ext: Warm, well-perfused. 2+ DP/PT bilaterally Skin: Left hand healed noriega graft CBCD WBC 4.8 K/mm3 (4.0-10.0) 05/02/17 05:40 RBC 3.14 M/mm3 (4.00-5.60) L 01/16/17 05:40 Hgb 8.2 GM/dL (11.7-16.9) L 01/16/17 05:40 Hct 26.0 % (35.4-49) L 01/16/17 05:40 MCV 82.5 fl (80-96) 01/16/17 05:40 MCHC 31.5 g/dl (32.0-35.9) L 01/16/17 05:40 RDW 15.1 % (11.9-15.9) 01/16/17 05:40 Plt Count 213 K/MM3 (134-434) 01/16/17 05:40 MPV 7.6 fl (7.5-11.1) 01/16/17 05:40 CMP Sodium 146 mmol/L (136-145) H 01/16/17 05:40 Potassium 3.8 mmol/L (3.5-5.1) 01/16/17 05:40 Chloride 112 mmol/L (98-107) H 01/16/17 05:40 Carbon Dioxide 25 mmol/L (21-32) 01/16/17 05:40 Anion Gap 9 (8-16) 01/16/17 05:40 BUN 11 mg/dL (7-18) 01/16/17 05:40 Creatinine 0.8 mg/dL (0.7-1.3) 01/16/17 05:40 Creat Clearance w eGFR > 60 (>60) 01/15/17 05:20 Random Glucose 90 mg/dL (74-106) 01/16/17 05:40 Calcium 8.0 mg/dL (8.5-10.1) L 01/16/17 05:40 Total Bilirubin 0.3 mg/dL (0.2-1.0) D 01/15/17 05:20 AST 28 U/L (15-37) D 01/15/17 05:20 ALT 34 U/L (12-78) 01/15/17 05:20 Alkaline Phosphatase 96 U/L (45-117) 01/15/17 05:20 Total Protein 5.6 g/dl (6.4-8.2) L 01/15/17 05:20 Albumin 2.2 g/dl (3.4-5.0) L 01/15/17 05:20 CARDIAC ENZYMES Creatine Kinase 500 IU/L (39-308) H D 01/11/17 19:50 Troponin I 1.02 ng/ml (0.00-0.05) H* 01/12/17 05:15 Microbiology 01/13/17 06:05 Blood - Peripheral Venous Blood Culture - Preliminary NO GROWTH OBTAINED AFTER 72 HOURS, INCUBATION TO CONTINUE FOR 2 DAYS. 01/13/17 05:50 Blood - Central Line Blood Culture - Preliminary NO GROWTH OBTAINED AFTER 72 HOURS, INCUBATION TO CONTINUE FOR 2 DAYS. 01/11/17 19:50 Blood - Peripheral Venous Blood Culture - Preliminary NO GROWTH OBTAINED AFTER 96 HOURS, INCUBATION TO CONTINUE FOR 1 DAYS. 01/11/17 20:17 Urine - Urine - Catheterized Urine Culture - Final Escherichia Coli 01/11/17 19:50 Blood - Peripheral Venous Blood Culture - Final Escherichia Coli 01/11/17 19:40 Nasopharyngeal Swab Respiratory Virus Panel - Preliminary 01/12/17 11:30 Urine For Antigen Detection Legionella Antigen - Final 01/12/17 11:30 Urine For Antigen Detection Streptococcus pneumoniae Antigen (M - Final 01/11/17 19:40 Nasopharyngeal Swab Influenza Types A,B Antigen ([facility]) - Final 01/11/17 19:40 Nasopharyngeal Swab - Final IMAGING: CXR 01/11 - No acute lung disease present EKG 01/11 - Sinus tachycardia, possible left atrial enlargement, inferior infarct - age undetermined EKG 01/12 - Normal sinus rhythm, prolonged QT interval, T-waves abnormal - consider anterior infarct Assessment: 62 year old male with PMHx HTN, HLD, CVA with residual right-sided weakness, 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 Plan: 1) ID: Severe sepsis 2/2 E.coli bacteremia (09/20 vials), e.coli UTI - Afebrile since 01/14 - Continue Zosyn (01/11- ) - Appreciate ID consult Hx of spinal abscess - No evidence indicating recurrence of spinal abscess at the moment, patient denies pain in back, no tenderness - If becomes symptomatic, will consider MRI spine 2) Pulmonary: Acute pulmonary embolism - Chest CTA with an elongated embolus straddling the main pulmonary artery bifurcation extending into the left and right pulmonary arteries as well as the lower lobe lobar arteries bilaterally - Non-specific left pulmonary apex groundglass interstitial opacity, will need outpatient follow-up to assess stability - For thrombolysis today - Appreciate pulmonary consult 3) Cardiology: Elevated troponins - Likely demand ischemia secondary to hypotension from sepsis - Troponin trended down - Plan further cards w/u once infection resolved - ECHO with RV dilation - Appreciate cardiology consult 4): SMILEY - Resolved 5) Endocrine: Possible right thyroid nodule - Evidence on Chest CTA - F/u outpatient thyroid ultrasound 4) Heme: Anemia - Continue to trend - Hgb down from baseline ~8.8 5) F/E/N Fluids: Encourage PO intake Electrolytes: Monitor and replace as needed Nutrition: Low-sodium diet 7. Prophylaxis - Continue Heparin gtt - PT Dispo: Continues to require ICU care. CODE STATUS: FULL CODE Visit type - Emergency Visit Emergency Visit: Yes ED Registration Date: 01/11/17 Care time: The patient presented to the Emergency Department on the above date and was hospitalized for further evaluation of their emergent condition. - New Patient This patient is new to me today: No - Critical Care Critical Care patient: No
[2017-01-16] MEDS: BACLOFEN 10 MG TABLET (FP) PO SCH (21:00)
[2017-01-16] MEDS: DOCUSATE SODIUM 100 MG CAPSULE (FP) PO SCH (22:00)
[2017-01-16] MEDS: CHLORHEXIDINE GLUCONATE 4% CLEANSER FOR DECOLONIZATION TP SCH (22:00)
--- NOTE | 2017-01-16 23:01 | EKG ---
Test Reason : Blood Pressure : / mmHG Vent. Rate : 082 BPM Atrial Rate : 082 BPM P-R Int : 178 ms QRS Dur : 094 ms QT Int : 404 ms P-R-T Axes : 058 -05 053 degrees QTc Int : 472 ms NORMAL SINUS RHYTHM T WAVE ABNORMALITY, CONSIDER ANTERIOR ISCHEMIA PROLONGED QT ABNORMAL ECG WHEN COMPARED WITH ECG OF 11-JAN-2017 18:07, NO SIGNIFICANT CHANGE WAS FOUND Confirmed by SHAILA HAMLIN MD ([id number]) on 01/16/2017 11:00:58 PM Referred By: Confirmed By:SHAILA HAMLIN MD
[2017-01-16] MEDS ORDERED: PT OWN MED DRAWER 7, Y5N ONE (23:18)
[2017-01-17] MEDS: PIPERACILLIN/TAZOB 3.375 GM 50 ML IVPB SCH ×3 (02:00→18:26)
[2017-01-17 06:14] LABS: BASOPHIL 0.5 % (0-2.0); EOSINOPHIL 4.2 % (0-4.5); MCH 26.8 pg (25.7-33.7); MCHC 32.7 g/dl (32.0-35.9); MEAN PLT VOLUME 7.7 fl (7.5-11.1); NEUTROPHILS 71.4 % (42.8-82.8); PLATELET COUNT 218 K/MM3 (134-434); RDW 14.8 % (11.9-15.9); WHITE BLOOD COUNT 4.9 K/mm3 (4.0-10.0)
[2017-01-17] MEDS: oxyCODONE HCL 5 MG TABLET PO PRN ×2 (06:27→22:48)
[2017-01-17 06:30] LABS: CALCIUM 8.1 mg/dL (8.5-10.1); COCKROFT - GAULT 128.31; CREATININE 0.9 mg/dL (0.7-1.3)
--- NOTE | 2017-01-17 08:46 | PN ---
Progress Note, Physician Chief Complaint: s/p thrombolysis Hemodynamically stable in NSR Denies chest pain or SOB - Current Medication List Current Medications: Active Medications Aspirin (Ecotrin -) 81 mg PO DAILY [facility] Last Admin: 01/16/17 09:27 Dose: 81 mg Baclofen (Lioresal -) 10 mg PO DAILY@2100 [facility] Last Admin: 01/16/17 21:00 Dose: 10 mg Benzocaine/Menthol (Cepacol Lozenge -) 1 each MM PRN PRN PRN Reason: SORE THROAT Chlorhexidine Gluconate (Hibiclens For Decolonization -) 1 applic TP HS [facility] Last Admin: 01/16/17 22:00 Dose: 1 applic Clopidogrel Bisulfate (Plavix -) 75 mg PO DAILY [facility] Last Admin: 01/16/17 09:26 Dose: 75 mg Docusate Sodium (Colace -) 300 mg PO HS [facility] Last Admin: 01/16/17 22:00 Dose: 300 mg Fluticasone Propionate (Flonase -) 1 spray NS BID [facility] Last Admin: 01/16/17 22:00 Dose: 1 spray Heparin Sodium (Porcine) (Heparin -) 1,000 unit IVPUSH PRN PRN PRN Reason: Heparin Heparin Sodium (Porcine) (Heparin -) 5,000 unit IVPUSH PRN PRN PRN Reason: Heparin Heparin Sodium (Porcine) (Heparin -) 1,000 unit IVPUSH PRN PRN PRN Reason: Heparin Heparin Sodium (Porcine) (Heparin -) 5,000 unit IVPUSH PRN PRN PRN Reason: Heparin Heparin Sodium (Porcine) 25, (000 unit/ Sodium Chloride) 500 mls @ 20 mls/hr IV TITR JAYCEE; 1,000 UNIT/HR PRN Reason: Protocol Last Admin: 01/16/17 22:22 Dose: Not Given Piperacillin Sod/Tazobactam Sod (Zosyn 3.375gm Ivpb (Pre-Docked)) 50 mls @ 100 mls/hr IVPB Q8H-IV JAYCEE PRN Reason: Protocol Last Admin: 01/17/17 02:00 Dose: 100 mls/hr Alteplase, Recombinant 25 mg/ (Sodium Chloride) 250 mls @ 5 mls/hr IVPB ONCE ONE PRN Reason: 0.5 MG/HR Stop: 05/04/17 12:29 Last Admin: 01/16/17 22:21 Dose: Not Given Alteplase, Recombinant 25 mg/ (Sodium Chloride) 250 mls @ 5 mls/hr IVPB ONCE ONE PRN Reason: 0.5 MG/HR Stop: 01/18/17 12:29 Last Admin: 01/16/17 22:21 Dose: Not Given Lactobacillus Acidophilus (Bacid -) 1 tab PO DAILY [facility] Last Admin: 01/16/17 09:26 Dose: 1 tab Magnesium Oxide (Mag-Ox -) 400 mg PO BID [facility] Last Admin: 01/16/17 22:00 Dose: 400 mg Multivitamins/Minerals/Vitamin C (Tab-A-Vit -) 1 tab PO DAILY [facility] Last Admin: 01/16/17 09:26 Dose: 1 tab Mupirocin (Bactroban Ointment (For Decolonization) -) 1 applic NS BID [facility] Stop: 01/17/17 09:59 Last Admin: 01/16/17 22:00 Dose: 1 applic Oxycodone HCl (Roxicodone -) 5 mg PO Q6H PRN PRN Reason: PAIN Last Admin: 01/17/17 06:27 Dose: 5 mg Polyethylene Glycol (Miralax (For Daily Use) -) 17 gm PO BID [facility] Last Admin: 01/16/17 22:00 Dose: 17 grams Ranitidine HCl (Zantac -) 150 mg PO BID [facility] Last Admin: 01/16/17 22:00 Dose: 150 mg - Objective Vital Signs: Vital Signs Temperature 98.9 F 01/17/17 06:00 Pulse Rate 72 01/17/17 06:00 Respiratory Rate 18 01/17/17 06:00 Blood Pressure 129/96 01/17/17 06:00 O2 Sat by Pulse Oximetry (%) 100 01/16/17 20:00 Constitutional: Yes: No Distress Neck: Yes: Other (Right sided central line, receiving alteplase) Cardiovascular: Yes: Regular Rate and Rhythm Respiratory: Yes: CTA Bilaterally Gastrointestinal: Yes: Soft, Abdomen, Obese Edema: No Neurological: Yes: Alert Labs: CBC, BMP 01/17/17 05:15 01/17/17 05:15 INR, PTT INR 1.13 (0.82-1.09) 01/16/17 05:40 - ....Imaging EKG: Image Reviewed Assessment/Plan Assessment/Plan 61 year old man h/o HTN, HLD, CVA admitted with fever noted to have an elevated troponin, RV dysfunction on echo and confirmed today to have b/l pulmonary emboli. Elevated TnI and RV dilatation/hypokinesis likely secondary to pulmonary embolism s/p thrombolytic therapy REC: Continue current Rx. Will need eventual transition to oral anticoagulant- choice to be guided by Critical Care Team Would plan to repeat echo in 1-2 weeks to assess for RV improvement.
[2017-01-17] MEDS ORDERED: SODIUM CHLORIDE 0.45% 1,000 ML IV SCH (09:00)
[2017-01-17] MEDS ORDERED: PT OWN MED DRAWER 7, Y5N ONE ×3 (09:35→21:28)
[2017-01-17] MEDS: RANITIDINE HCL 150 MG TABLET (FP) PO SCH ×2 (09:46→22:28)
[2017-01-17] MEDS: MULTIVITAMINS (DAILY MVI) TABLET (FP) PO SCH (09:46)
[2017-01-17] MEDS: LACTOBACILLUS ACIDOPHILUS 1 EACH TAB (FP) PO SCH (09:46)
[2017-01-17] MEDS: CLOPIDOGREL BISULFATE 75 MG TABLET (FP) PO SCH (09:47)
[2017-01-17] MEDS: MAGNESIUM OXIDE 400 MG TABLET (FP) PO SCH ×2 (09:47→22:28)
[2017-01-17] MEDS: ASPIRIN COATED 81 MG TABLET.EC PO SCH (09:47)
[2017-01-17] MEDS: POLYETHYLENE GLYCOL 3350 119 GM BTL PO SCH ×2 (09:48→22:28)
[2017-01-17] MEDS: FLUTICASONE PROP 0.05% 16 GM NASAL SPRAY NS SCH ×2 (09:49→22:28)
--- NOTE | 2017-01-17 12:21 | PN ---
Teaching Attending Note Name of Resident: Judson Coats ATTENDING PHYSICIAN STATEMENT I saw and evaluated the patient. I reviewed the resident's note and discussed the case with the resident. I agree with the resident's findings and plan as documented. SUBJECTIVE: Pt seen and examined in the ICU. Alteplase infusing via pulmonary artery catheter. Denies shortness of breath or chest pain. OBJECTIVE: Last Vital Signs Temp Pulse Resp BP Pulse Ox 98.9 F 78 15 157/69 99 01/17/17 06:00 01/17/17 10:28 01/17/17 10:00 01/17/17 10:00 01/17/17 10:28 Intake & Output 01/14/17 01/15/17 01/16/17 01/17/17 23:59 23:59 23:59 23:59 Intake Total 3668 3066 2538 1340 Output Total 1100 1100 1800 800 Balance 2568 1966 738 540 Weight 242 lb 240 lb 1.6 oz 242 lb 4.608 oz 241 lb 3.2 oz Gen: NAD at rest Heart: RRR Lung: decreased breath sounds at the bases Abd: soft, nontender Ext: no edema CBC, BMP 01/17/17 05:15 01/17/17 05:15 Active Medications Aspirin (Ecotrin -) 81 mg PO DAILY [facility] Last Admin: 01/17/17 09:47 Dose: 81 mg Baclofen (Lioresal -) 10 mg PO DAILY@2100 [facility] Last Admin: 01/16/17 21:00 Dose: 10 mg Benzocaine/Menthol (Cepacol Lozenge -) 1 each MM PRN PRN PRN Reason: SORE THROAT Chlorhexidine Gluconate (Hibiclens For Decolonization -) 1 applic TP HS [facility] Last Admin: 01/16/17 22:00 Dose: 1 applic Clopidogrel Bisulfate (Plavix -) 75 mg PO DAILY [facility] Last Admin: 01/17/17 09:47 Dose: 75 mg Docusate Sodium (Colace -) 300 mg PO HS [facility] Last Admin: 01/16/17 22:00 Dose: 300 mg Fluticasone Propionate (Flonase -) 1 spray NS BID [facility] Last Admin: 01/17/17 09:49 Dose: 1 spray Heparin Sodium (Porcine) (Heparin -) 1,000 unit IVPUSH PRN PRN PRN Reason: Heparin Heparin Sodium (Porcine) (Heparin -) 5,000 unit IVPUSH PRN PRN PRN Reason: Heparin Heparin Sodium (Porcine) 25, (000 unit/ Sodium Chloride) 500 mls @ 20 mls/hr IV TITR JAYCEE; 1,000 UNIT/HR PRN Reason: Protocol Last Admin: 01/16/17 22:22 Dose: Not Given Piperacillin Sod/Tazobactam Sod (Zosyn 3.375gm Ivpb (Pre-Docked)) 50 mls @ 100 mls/hr IVPB Q8H-IV JAYCEE PRN Reason: Protocol Last Admin: 01/17/17 09:45 Dose: 100 mls/hr Alteplase, Recombinant 25 mg/ (Sodium Chloride) 250 mls @ 5 mls/hr IVPB ONCE ONE PRN Reason: 0.5 MG/HR Stop: 01/18/17 12:29 Last Admin: 01/16/17 22:21 Dose: Not Given Alteplase, Recombinant 25 mg/ (Sodium Chloride) 250 mls @ 5 mls/hr IVPB ONCE ONE PRN Reason: 0.5 MG/HR Stop: 01/18/17 12:29 Last Admin: 01/16/17 22:21 Dose: Not Given Sodium Chloride (1/2 Normal Saline) 1,000 mls @ 75 mls/hr IV ASDIR [facility] Last Admin: 01/17/17 09:47 Dose: 75 mls/hr Lactobacillus Acidophilus (Bacid -) 1 tab PO DAILY [facility] Last Admin: 01/17/17 09:46 Dose: 1 tab Magnesium Oxide (Mag-Ox -) 400 mg PO BID [facility] Last Admin: 01/17/17 09:47 Dose: 400 mg Multivitamins/Minerals/Vitamin C (Tab-A-Vit -) 1 tab PO DAILY [facility] Last Admin: 01/17/17 09:46 Dose: 1 tab Oxycodone HCl (Roxicodone -) 5 mg PO Q6H PRN PRN Reason: PAIN Last Admin: 01/17/17 06:27 Dose: 5 mg Polyethylene Glycol (Miralax (For Daily Use) -) 17 gm PO BID [facility] Last Admin: 01/17/17 09:48 Dose: 17 grams Ranitidine HCl (Zantac -) 150 mg PO BID [facility] Last Admin: 01/17/17 09:46 Dose: 150 mg ASSESSMENT AND PLAN: UTI E Coli Bacteremia Severe Sepsis resolving Neurogenic Bladder Acute Pulmonary Emboli +Troponins likely from above Right Heart Strain Acute Kidney Injury improving - for repeat pulmonary angiogram and possible removal of PAC - continue antibiotics - monitor fever curve, WBC trend - continue anticoagulation, can start oral anticoagulation in AM - O2 to keep Spo2 >90% - PO as tolerated - continue ICU monitoring during thrombolytic therapy, can monitor on floor after removal of catheter critical care time spent in reviewing chart, evaluating patient and formulating plan 35 min
--- NOTE | 2017-01-17 12:42 | PN ---
[id number] bedside, he denies any pain at this time. Thrombolytics infusing from pulmonary artery catheter. For repeat pulmonary angiogram and possible removal of PAC Current Medications Generic Name Dose Route Start Last Admin Trade Name Fidel PRN Reason Stop Dose Admin Aspirin 81 mg 01/16/17 10:00 01/17/17 09:47 Ecotrin - PO 81 mg DAILY JAYCEE Administration Baclofen 10 mg 01/15/17 21:00 01/16/17 21:00 Lioresal - PO 10 mg DAILY@2100 JAYCEE Administration Benzocaine/Menthol 1 each 01/15/17 11:52 Cepacol Lozenge - MM PRN PRN SORE THROAT Chlorhexidine Gluconate 1 applic 01/15/17 22:00 01/16/17 22:00 Hibiclens For Decolonization - TP 1 applic HS JAYCEE Administration Clopidogrel Bisulfate 75 mg 01/16/17 10:00 01/17/17 09:47 Plavix - PO 75 mg DAILY JAYCEE Administration Docusate Sodium 300 mg 01/15/17 22:00 01/16/17 22:00 Colace - PO 300 mg HS JAYCEE Administration Fluticasone Propionate 1 spray 01/15/17 22:00 01/17/17 09:49 Flonase - NS 1 spray BID JAYCEE Administration Heparin Sodium (Porcine) 1,000 unit 01/15/17 11:52 Heparin - IVPUSH PRN PRN Heparin Heparin Sodium (Porcine) 5,000 unit 01/15/17 11:52 Heparin - IVPUSH PRN PRN Heparin Heparin Sodium (Porcine) 25, 500 mls @ 20 mls/hr 01/15/17 11:52 01/16/17 22:22 000 unit/ Sodium Chloride IV Not Given TITR JAYCEE Protocol 1,000 UNIT/HR Piperacillin Sod/Tazobactam Sod 50 mls @ 100 mls/hr 01/15/17 18:00 01/17/17 09: 45 Zosyn 3.375gm Ivpb (Pre-Docked) IVPB 100 mls/hr Q8H-IV JAYCEE Administration Protocol Alteplase, Recombinant 25 mg/ 250 mls @ 5 mls/hr 01/16/17 10:30 01/16/17 22:21 Sodium Chloride IVPB 01/18/17 12:29 Not Given ONCE ONE 0.5 MG/HR Alteplase, Recombinant 25 mg/ 250 mls @ 5 mls/hr 01/16/17 10:30 01/16/17 22:21 Sodium Chloride IVPB 01/18/17 12:29 Not Given ONCE ONE 0.5 MG/HR Sodium Chloride 1,000 mls @ 75 mls/hr 01/17/17 09:00 01/17/17 09:47 1/2 Normal Saline IV 75 mls/hr ASDIR JAYCEE Administration Lactobacillus Acidophilus 1 tab 01/16/17 10:00 01/17/17 09:46 Bacid - PO 1 tab DAILY JAYCEE Administration Magnesium Oxide 400 mg 01/15/17 22:00 01/17/17 09:47 Mag-Ox - PO 400 mg BID JAYCEE Administration Multivitamins/Minerals/Vitamin C 1 tab 01/16/17 10:00 01/17/17 09:46 Tab-A-Vit - PO 1 tab DAILY JAYCEE Administration Oxycodone HCl 5 mg 01/16/17 08:14 01/17/17 06:27 Roxicodone - PO 5 mg Q6H PRN Administration PAIN Polyethylene Glycol 17 gm 01/15/17 22:00 01/17/17 09:48 Miralax (For Daily Use) - PO 17 grams BID JAYCEE Administration Ranitidine HCl 150 mg 01/15/17 22:00 01/17/17 09:46 Zantac - PO 150 mg BID JAYCEE Administration Objective: Vital Signs Period Temp Pulse Resp BP Sys/Conner Pulse Ox Last 24 Hr 98.2 F-99 F 50-82 14-18 129-168/7-96 96-100 Physical Exam: General: NAD, A&Ox3 Lungs: CTA bilaterally Heart: RRR, S1S2 Abd: Soft, non-tender, non-distended. Normoactive bowel sounds Ext: Warm, well-perfused. 2+ DP/PT bilaterally Skin: Left hand healed noriega graft CBCD WBC 4.9 K/mm3 (4.0-10.0) 01/17/17 05:15 RBC 3.04 M/mm3 (4.00-5.60) L 01/17/17 05:15 Hgb 8.2 GM/dL (11.7-16.9) L 01/17/17 05:15 Hct 25.0 % (35.4-49) L 01/17/17 05:15 MCV 82.0 fl (80-96) 01/17/17 05:15 MCHC 32.7 g/dl (32.0-35.9) 01/17/17 05:15 RDW 14.8 % (11.9-15.9) 01/17/17 05:15 Plt Count 218 K/MM3 (134-434) 01/17/17 05:15 MPV 7.7 fl (7.5-11.1) 01/17/17 05:15 CMP Sodium 146 mmol/L (136-145) H 01/17/17 05:15 Potassium 3.9 mmol/L (3.5-5.1) 01/17/17 05:15 Chloride 111 mmol/L (98-107) H 01/17/17 05:15 Carbon Dioxide 27 mmol/L (21-32) 01/17/17 05:15 Anion Gap 8 (8-16) 01/17/17 05:15 BUN 11 mg/dL (7-18) 01/17/17 05:15 Creatinine 0.9 mg/dL (0.7-1.3) 01/17/17 05:15 Creat Clearance w eGFR > 60 (>60) 01/15/17 05:20 Random Glucose 101 mg/dL (74-106) 01/17/17 05:15 Calcium 8.1 mg/dL (8.5-10.1) L 01/17/17 05:15 Total Bilirubin 0.3 mg/dL (0.2-1.0) D 01/15/17 05:20 AST 28 U/L (15-37) D 01/15/17 05:20 ALT 34 U/L (12-78) 01/15/17 05:20 Alkaline Phosphatase 96 U/L (45-117) 01/15/17 05:20 Total Protein 5.6 g/dl (6.4-8.2) L 01/15/17 05:20 Albumin 2.2 g/dl (3.4-5.0) L 01/15/17 05:20 CARDIAC ENZYMES Creatine Kinase 500 IU/L (39-308) H D 01/11/17 19:50 Troponin I 1.02 ng/ml (0.00-0.05) H* 01/12/17 05:15 Microbiology 01/13/17 06:05 Blood - Peripheral Venous Blood Culture - Preliminary NO GROWTH OBTAINED AFTER 96 HOURS, INCUBATION TO CONTINUE FOR 1 DAYS. 01/13/17 05:50 Blood - Central Line Blood Culture - Preliminary NO GROWTH OBTAINED AFTER 96 HOURS, INCUBATION TO CONTINUE FOR 1 DAYS. 01/11/17 19:50 Blood - Peripheral Venous Blood Culture - Final NO GROWTH AFTER 5 DAYS INCUBATION 01/11/17 20:17 Urine - Urine - Catheterized Urine Culture - Final Escherichia Coli 01/11/17 19:50 Blood - Peripheral Venous Blood Culture - Final Escherichia Coli 01/11/17 19:40 Nasopharyngeal Swab Respiratory Virus Panel - Preliminary 01/12/17 11:30 Urine For Antigen Detection Legionella Antigen - Final 01/12/17 11:30 Urine For Antigen Detection Streptococcus pneumoniae Antigen (M - Final 01/11/17 19:40 Nasopharyngeal Swab Influenza Types A,B Antigen ([facility]) - Final 01/11/17 19:40 Nasopharyngeal Swab - Final IMAGING: CXR 01/11 - No acute lung disease present EKG 01/11 - Sinus tachycardia, possible left atrial enlargement, inferior infarct - age undetermined EKG 01/12 - Normal sinus rhythm, prolonged QT interval, T-waves abnormal - consider anterior infarct Assessment: 62 year old male with PMHx HTN, HLD, CVA with residual right-sided weakness, 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 Plan: 1) ID: Severe sepsis 2/2 E.coli bacteremia (/ vials), e.coli UTI - Afebrile since 01/14 - Continue Zosyn (01/11- ) - Appreciate ID consult Hx of spinal abscess - No evidence indicating recurrence of spinal abscess at the moment, patient denies pain in back, no tenderness - If becomes symptomatic, will consider MRI spine 2) Pulmonary: Acute pulmonary embolism - Chest CTA with an elongated embolus straddling the main pulmonary artery bifurcation extending into the left and right pulmonary arteries as well as the lower lobe lobar arteries bilaterally - Non-specific left pulmonary apex groundglass interstitial opacity, will need outpatient follow-up to assess stability - For thrombolysis today - Appreciate pulmonary consult 3) Cardiology: Elevated troponins - Likely demand ischemia secondary to hypotension from sepsis - Troponin trended down - Plan further cards w/u once infection resolved - ECHO with RV dilation - Appreciate cardiology consult 4): SMILEY - Resolved 5) Endocrine: Possible right thyroid nodule - Evidence on Chest CTA - F/u outpatient thyroid ultrasound 4) Heme: Anemia - Continue to trend - Hgb down from baseline ~8.8 5) F/E/N Fluids: Encourage PO intake Electrolytes: Monitor and replace as needed Nutrition: Low-sodium diet 7. Prophylaxis - Continue Heparin gtt - PT Dispo: Continues to require ICU care. CODE STATUS: FULL CODE Visit type - Emergency Visit Emergency Visit: Yes ED Registration Date: 01/11/17 Care time: The patient presented to the Emergency Department on the above date and was hospitalized for further evaluation of their emergent condition. - New Patient This patient is new to me today: No - Critical Care Critical Care patient: No
[2017-01-17 12:58] LABS: PHOSPHOROUS 2.9 mg/dL (2.5-4.9)
--- NOTE | 2017-01-17 13:34 | PN ---
Addendum entered and electronically signed by Judson Coats RES 01/17/17 14:23 : will start ac from tomorrow eliquis 10mg bid for 7 days than decrease to 5mg bid Original Note: Physical Exam: SUBJECTIVE: Patient seen and examined denies headache, weakness on numbness, denies bleeding from gums, nose, urine, stool denies chest pain, sob. Denies nausea, vomiting. Hb stable. Patient will go to IR for repeat angiogram and possible removal of pulmonary artery catheter OBJECTIVE: Vital Signs Period Temp Pulse Resp BP Sys/Conner Pulse Ox Last 24 Hr 98.2 F-99 F 50-82 14-18 129-165/7-96 96-100 GENERAL: The patient is awake, alert, and fully oriented, in no acute distress. EYES: PERRL, ENT: Ears normal, nares patent, moist mucous membranes. NECK: Trachea midline, LUNGS: Breath sounds equal, clear to auscultation bilaterally, no wheezes, no accessory muscle use. HEART:s1s2 normal. ABDOMEN: Soft, nontender, nondistended, normoactive bowel sounds, no guarding, no rebound, EXTREMITIES: 2+ pulses, warm, well-perfused, NEUROLOGICAL: Cranial nerves II through XII grossly intact. Normal speech PSYCH: Normal mood, normal affect. SKIN: Warm, dry, normal turgor, Laboratory Results - last 24 hr 01/17/17 01/17/17 01/17/17 05:15 05:15 05:15 WBC 4.9 RBC 3.04 L Hgb 8.2 L Hct 25.0 L MCV 82.0 MCHC 32.7 RDW 14.8 Plt Count 218 MPV 7.7 Neutrophils % 71.4 Lymphocytes % 14.0 Monocytes % 9.9 Eosinophils % 4.2 Basophils % 0.5 PTT (Actin FS) 33.8 D Sodium 146 H Potassium 3.9 Chloride 111 H Carbon Dioxide 27 Anion Gap 8 BUN 11 Creatinine 0.9 POC Glucometer Random Glucose 101 Calcium 8.1 L Phosphorus 2.9 D 01/17/17 01/17/17 05:16 11:51 WBC RBC Hgb Hct MCV MCHC RDW Plt Count MPV Neutrophils % Lymphocytes % Monocytes % Eosinophils % Basophils % PTT (Actin FS) Sodium Potassium Chloride Carbon Dioxide Anion Gap BUN Creatinine POC Glucometer [id number] Random Glucose Calcium Phosphorus Cancelled Active Medications Generic Name Dose Route Start Last Admin Trade Name Fidel PRN Reason Stop Dose Admin Aspirin 81 mg 01/16/17 10:00 01/17/17 09:47 Ecotrin - PO 81 mg DAILY JAYCEE Administration Baclofen 10 mg 01/15/17 21:00 01/16/17 21:00 Lioresal - PO 10 mg DAILY@2100 JAYCEE Administration Benzocaine/Menthol 1 each 01/15/17 11:52 Cepacol Lozenge - MM PRN PRN SORE THROAT Chlorhexidine Gluconate 1 applic 01/15/17 22:00 01/16/17 22:00 Hibiclens For Decolonization - TP 1 applic HS JAYCEE Administration Clopidogrel Bisulfate 75 mg 01/16/17 10:00 01/17/17 09:47 Plavix - PO 75 mg DAILY JAYCEE Administration Docusate Sodium 300 mg 01/15/17 22:00 01/16/17 22:00 Colace - PO 300 mg HS JAYCEE Administration Fluticasone Propionate 1 spray 01/15/17 22:00 01/17/17 09:49 Flonase - NS 1 spray BID JAYCEE Administration Heparin Sodium (Porcine) 1,000 unit 01/15/17 11:52 Heparin - IVPUSH PRN PRN Heparin Heparin Sodium (Porcine) 5,000 unit 01/15/17 11:52 Heparin - IVPUSH PRN PRN Heparin Heparin Sodium (Porcine) 25, 500 mls @ 20 mls/hr 01/15/17 11:52 01/16/17 22:22 000 unit/ Sodium Chloride IV Not Given TITR JAYCEE Protocol 1,000 UNIT/HR Piperacillin Sod/Tazobactam Sod 50 mls @ 100 mls/hr 01/15/17 18:00 01/17/17 09: 45 Zosyn 3.375gm Ivpb (Pre-Docked) IVPB 100 mls/hr Q8H-IV JAYCEE Administration Protocol Alteplase, Recombinant 25 mg/ 250 mls @ 5 mls/hr 01/16/17 10:30 01/16/17 22:21 Sodium Chloride IVPB 01/18/17 12:29 Not Given ONCE ONE 0.5 MG/HR Alteplase, Recombinant 25 mg/ 250 mls @ 5 mls/hr 01/16/17 10:30 01/16/17 22:21 Sodium Chloride IVPB 01/18/17 12:29 Not Given ONCE ONE 0.5 MG/HR Sodium Chloride 1,000 mls @ 75 mls/hr 01/17/17 09:00 01/17/17 09:47 1/2 Normal Saline IV 75 mls/hr ASDIR JAYCEE Administration Lactobacillus Acidophilus 1 tab 01/16/17 10:00 01/17/17 09:46 Bacid - PO 1 tab DAILY JAYCEE Administration Magnesium Oxide 400 mg 01/15/17 22:00 01/17/17 09:47 Mag-Ox - PO 400 mg BID JAYCEE Administration Multivitamins/Minerals/Vitamin C 1 tab 01/16/17 10:00 01/17/17 09:46 Tab-A-Vit - PO 1 tab DAILY JAYCEE Administration Oxycodone HCl 5 mg 01/16/17 08:14 01/17/17 06:27 Roxicodone - PO 5 mg Q6H PRN Administration PAIN Polyethylene Glycol 17 gm 01/15/17 22:00 01/17/17 09:48 Miralax (For Daily Use) - PO 17 grams BID JAYCEE Administration Ranitidine HCl 150 mg 01/15/17 22:00 01/17/17 09:46 Zantac - PO 150 mg BID JAYCEE Administration ASSESSMENT/PLAN: 1. sepsis. improving could be from gram negative bacteremia and uti no fever over night, wbc 4.9 monitor vitals monitor intake/ output antibiotic as per ID zosyn day 7 ID on case 2 Acute Pulmonary embolism, unprovoked. on streptokinase infusion through pulmonary cath. will go for angio and possible cath removal monitor vital keep spo2 > 90 . elevated trop I stress induced trending down echo RV dilatation cardiology on case 3. SMILEY - improved - could be prerenal - Avoid nephrotoxic medications - monitor creatnine 4. normocytic anemia - hb 8.2, stable - Monitor hb 6. F/E/N Fluids: allowed orally Electrolytes: follow in am Nutrition: Low-sodium diet 7. Prophylaxis - on streptokinase GI prophylaxis : zantac bid Dispo: transfer to floor Visit type - Emergency Visit Emergency Visit: Yes ED Registration Date: 01/11/17 Care time: The patient presented to the Emergency Department on the above date and was hospitalized for further evaluation of their emergent condition. - New Patient This patient is new to me today: No - Critical Care Critical Care patient: Yes Total Critical Care Time (in minutes): 45 Critical Care Statement: The care of this patient involved high complexity decision making to prevent further life threatening deterioration of the patient 's condition and/or to evalute & treat vital organ system(s) failure or risk of failure.
--- NOTE | 2017-01-17 15:31 | PN ---
Progress Note, Physician History of Present Illness: stable no complaints post thrombectomty no issues - Current Medication List Current Medications: Active Medications Apixaban (Eliquis -) 10 mg PO BID [facility] Stop: 01/25/17 09:59 Aspirin (Ecotrin -) 81 mg PO DAILY [facility] Last Admin: 01/17/17 09:47 Dose: 81 mg Baclofen (Lioresal -) 10 mg PO DAILY@2100 [facility] Last Admin: 01/16/17 21:00 Dose: 10 mg Benzocaine/Menthol (Cepacol Lozenge -) 1 each MM PRN PRN PRN Reason: SORE THROAT Chlorhexidine Gluconate (Hibiclens For Decolonization -) 1 applic TP [facility] Last Admin: 01/16/17 22:00 Dose: 1 applic Docusate Sodium (Colace -) 300 mg PO [facility] Last Admin: 01/16/17 22:00 Dose: 300 mg Fluticasone Propionate (Flonase -) 1 spray NS BID [facility] Last Admin: 01/17/17 09:49 Dose: 1 spray Piperacillin Sod/Tazobactam Sod (Zosyn 3.375gm Ivpb (Pre-Docked)) 50 mls @ 100 mls/hr IVPB Q8H-IV [facility] PRN Reason: Protocol Last Admin: 01/17/17 09:45 Dose: 100 mls/hr Alteplase, Recombinant 25 mg/ (Sodium Chloride) 250 mls @ 5 mls/hr IVPB ONCE ONE PRN Reason: 0.5 MG/HR Stop: 01/18/17 12:29 Last Admin: 01/16/17 22:21 Dose: Not Given Alteplase, Recombinant 25 mg/ (Sodium Chloride) 250 mls @ 5 mls/hr IVPB ONCE ONE PRN Reason: 0.5 MG/HR Stop: 01/18/17 12:29 Last Admin: 01/16/17 22:21 Dose: Not Given Lactobacillus Acidophilus (Bacid -) 1 tab PO DAILY [facility] Last Admin: 01/17/17 09:46 Dose: 1 tab Magnesium Oxide (Mag-Ox -) 400 mg PO BID [facility] Last Admin: 01/17/17 09:47 Dose: 400 mg Multivitamins/Minerals/Vitamin C (Tab-A-Vit -) 1 tab PO DAILY [facility] Last Admin: 01/17/17 09:46 Dose: 1 tab Oxycodone HCl (Roxicodone -) 5 mg PO Q6H PRN PRN Reason: PAIN Last Admin: 01/17/17 06:27 Dose: 5 mg Polyethylene Glycol (Miralax (For Daily Use) -) 17 gm PO BID [facility] Last Admin: 01/17/17 09:48 Dose: 17 grams Ranitidine HCl (Zantac -) 150 mg PO BID [facility] Last Admin: 01/17/17 09:46 Dose: 150 mg - Objective Vital Signs: Vital Signs Temperature 98.9 F 01/17/17 06:00 Pulse Rate 64 01/17/17 14:00 Respiratory Rate 17 01/17/17 14:00 Blood Pressure 151/73 01/17/17 14:00 O2 Sat by Pulse Oximetry (%) 99 01/17/17 10:28 Constitutional: Yes: No Distress, Calm Cardiovascular: Yes: Regular Rate and Rhythm Respiratory: Yes: Regular, CTA Bilaterally Gastrointestinal: Yes: Normal Bowel Sounds, Soft Musculoskeletal: Yes: Other Extremities: Yes: Other (rt sided weakness) Neurological: Yes: Alert, Oriented Psychiatric: Yes: Alert Labs: CBC, BMP 01/17/17 05:15 01/17/17 05:15 INR, PTT INR 1.13 (0.82-1.09) 01/16/17 05:40 Assessment/Plan sepsis josé luis h/o of spinal abscess incontinence increased trop fever leukocytosis pul embolus sinusitis plan continue zosyn thrombectomy done close monitoring rest ct as per icu will probably deescaalte abx on sunday cc time 40 min
[2017-01-17] MEDS: DOCUSATE SODIUM 100 MG CAPSULE (FP) PO SCH (22:26)
[2017-01-17] MEDS: BACLOFEN 10 MG TABLET (FP) PO SCH (22:26)
[2017-01-17] MEDS: HEPARIN - 25,000 UNIT in SODIUM CHLORIDE 495 ML IV SCH (22:26)
[2017-01-17] MEDS: CHLORHEXIDINE GLUCONATE 4% CLEANSER FOR DECOLONIZATION TP SCH (22:28)
[2017-01-17] MEDS ORDERED: HEPARIN NA (PORCINE) 5,000 UNITS/ML 1ML VIAL IVPUSH PRN ×2 (23:40)
[2017-01-17] MEDS ORDERED: BENZOCAINE/MENTH/CETYLPYRD CL 1 EACH LOZENGE MM PRN (23:40)
[2017-01-18] MEDS: PIPERACILLIN/TAZOB 3.375 GM 50 ML IVPB SCH ×3 (02:38→17:59)
[2017-01-18 07:26] LABS: BASOPHIL 0.5 % (0-2.0); EOSINOPHIL 5.3 % (0-4.5); MCH 26.8 pg (25.7-33.7); MCHC 32.7 g/dl (32.0-35.9); MEAN PLT VOLUME 7.2 fl (7.5-11.1); PLATELET COUNT 246 K/MM3 (134-434); WHITE BLOOD COUNT 4.9 K/mm3 (4.0-10.0)
--- NOTE | 2017-01-18 08:44 | PN ---
Progress Note (short form) - Note Progress Note: Resting in NAD. No acute events overnight. No overt bleeding. Intake & Output 01/15/17 01/16/17 01/17/17 01/18/17 23:59 23:59 23:59 23:59 Intake Total 3066 2538 1590 100 Output Total 1100 1800 2024 Balance 1966 738 -435 100 Weight 240 lb 1.6 oz 242 lb 4.608 oz 241 lb 3.2 oz 239 lb 14.4 oz Last Vital Signs Temp Pulse Resp BP Pulse Ox 98.8 F 74 20 150/69 99 01/18/17 06:27 01/18/17 06:27 01/18/17 06:27 01/18/17 06:27 01/17/17 21:00 Active Medications Apixaban (Eliquis -) 10 mg PO BID [facility] Stop: 01/25/17 09:59 Aspirin (Ecotrin -) 81 mg PO DAILY JAYCEE Baclofen (Lioresal -) 10 mg PO DAILY@2100 [facility] Benzocaine/Menthol (Cepacol Lozenge -) 1 each MM PRN PRN PRN Reason: SORE THROAT Docusate Sodium (Colace -) 300 mg PO HS JAYCEE Fluticasone Propionate (Flonase -) 1 spray NS BID JAYCEE Alteplase, Recombinant 25 mg/ (Sodium Chloride) 250 mls @ 5 mls/hr IVPB ONCE ONE PRN Reason: 0.5 MG/HR Stop: 01/18/17 12:29 Last Admin: 01/16/17 22:21 Dose: Not Given Alteplase, Recombinant 25 mg/ (Sodium Chloride) 250 mls @ 5 mls/hr IVPB ONCE ONE PRN Reason: 0.5 MG/HR Stop: 01/18/17 12:29 Last Admin: 01/16/17 22:21 Dose: Not Given Piperacillin Sod/Tazobactam Sod (Zosyn 3.375gm Ivpb (Pre-Docked)) 50 mls @ 100 mls/hr IVPB Q8H-IV JAYCEE PRN Reason: Protocol Last Admin: 01/18/17 02:38 Dose: 100 mls/hr Lactobacillus Acidophilus (Bacid -) 1 tab PO DAILY JAYCEE Magnesium Oxide (Mag-Ox -) 400 mg PO BID [facility] Multivitamins/Minerals/Vitamin C (Tab-A-Vit -) 1 tab PO DAILY [facility] Oxycodone HCl (Roxicodone -) 5 mg PO Q6H PRN PRN Reason: PAIN Polyethylene Glycol (Miralax (For Daily Use) -) 17 gm PO BID JAYCEE Ranitidine HCl (Zantac -) 150 mg PO BID JAYCEE Gen: NAD at rest Heart: RRR Lung: decreased breath sounds at the bases Abd: soft, nontender Ext: no edema Laboratory Results - last 24 hr 01/17/17 01/17/17 01/18/17 05:15 11:51 06:10 WBC Cancelled Corrected WBC (auto) Cancelled RBC Cancelled Hgb Cancelled Hct Cancelled MCV Cancelled MCHC Cancelled RDW Cancelled Plt Count Cancelled MPV Cancelled Neutrophils % Lymphocytes % Monocytes % Eosinophils % Basophils % Differential Comment Cancelled Platelet Estimate Cancelled Platelet Comment Cancelled RBC Morphology Cancelled PTT (Actin FS) Sodium Potassium Chloride Carbon Dioxide Anion Gap BUN Creatinine Creat Clearance w eGFR Random Glucose Calcium Phosphorus 2.9 D Cancelled Total Bilirubin AST ALT Alkaline Phosphatase Total Protein Albumin 01/18/17 01/18/17 01/18/17 06:10 06:10 06:10 WBC 4.9 Corrected WBC (auto) RBC 3.51 L Hgb 9.4 L D Hct 28.8 L D MCV 82.0 MCHC 32.7 RDW 15.0 Plt Count 246 MPV 7.2 L Neutrophils % 70.0 Lymphocytes % 14.9 Monocytes % 9.3 Eosinophils % 5.3 H Basophils % 0.5 Differential Comment Platelet Estimate Platelet Comment RBC Morphology PTT (Actin FS) 27.0 Sodium Cancelled Potassium Cancelled Chloride Cancelled Carbon Dioxide Cancelled Anion Gap Cancelled BUN Cancelled Creatinine Cancelled Creat Clearance w eGFR Cancelled Random Glucose Cancelled Calcium Cancelled Phosphorus Total Bilirubin Cancelled AST Cancelled ALT Cancelled Alkaline Phosphatase Cancelled Total Protein Cancelled Albumin Cancelled ASSESSMENT AND PLAN: UTI E Coli Bacteremia Severe Sepsis resolving Neurogenic Bladder Acute Pulmonary Emboli +Troponins likely from above Right Heart Strain Acute Kidney Injury improving S/P Pulmonary angiogram / catheter directed tPA ABX Per ID AC O2 to keep Spo2 >90% PO as tolerated Ambulate Dr Vieyra
--- NOTE | 2017-01-18 09:20 | PN ---
Progress Note, Physician Chief Complaint: no distress denies chest pain or SOB - Current Medication List Current Medications: Active Medications Apixaban (Eliquis -) 10 mg PO BID [facility] Stop: 01/25/17 09:59 Aspirin (Ecotrin -) 81 mg PO DAILY JAYCEE Baclofen (Lioresal -) 10 mg PO DAILY@2100 JAYCEE Benzocaine/Menthol (Cepacol Lozenge -) 1 each MM PRN PRN PRN Reason: SORE THROAT Docusate Sodium (Colace -) 300 mg PO HS JAYCEE Fluticasone Propionate (Flonase -) 1 spray NS BID JAYCEE Alteplase, Recombinant 25 mg/ (Sodium Chloride) 250 mls @ 5 mls/hr IVPB ONCE ONE PRN Reason: 0.5 MG/HR Stop: 01/18/17 12:29 Last Admin: 01/16/17 22:21 Dose: Not Given Alteplase, Recombinant 25 mg/ (Sodium Chloride) 250 mls @ 5 mls/hr IVPB ONCE ONE PRN Reason: 0.5 MG/HR Stop: 01/18/17 12:29 Last Admin: 01/16/17 22:21 Dose: Not Given Piperacillin Sod/Tazobactam Sod (Zosyn 3.375gm Ivpb (Pre-Docked)) 50 mls @ 100 mls/hr IVPB Q8H-IV JAYCEE PRN Reason: Protocol Last Admin: 01/18/17 02:38 Dose: 100 mls/hr Lactobacillus Acidophilus (Bacid -) 1 tab PO DAILY [facility] Magnesium Oxide (Mag-Ox -) 400 mg PO BID [facility] Multivitamins/Minerals/Vitamin C (Tab-A-Vit -) 1 tab PO DAILY [facility] Oxycodone HCl (Roxicodone -) 5 mg PO Q6H PRN PRN Reason: PAIN Polyethylene Glycol (Miralax (For Daily Use) -) 17 gm PO BID JAYCEE Ranitidine HCl (Zantac -) 150 mg PO BID [facility] - Objective Vital Signs: Vital Signs Temperature 98.8 F 01/18/17 06:27 Pulse Rate 74 01/18/17 06:27 Respiratory Rate 20 01/18/17 06:27 Blood Pressure 150/69 01/18/17 06:27 O2 Sat by Pulse Oximetry (%) 99 01/17/17 21:00 Constitutional: Yes: No Distress Cardiovascular: Yes: Regular Rate and Rhythm Respiratory: Yes: CTA Bilaterally Gastrointestinal: Yes: Soft, Abdomen, Obese Edema: Yes Edema: LLE: Trace, RLE: Trace Neurological: Yes: Alert, Oriented ...Motor Strength: WNL Labs: CBC, BMP 01/18/17 06:10 INR, PTT INR 1.13 (0.82-1.09) 01/16/17 05:40 Laboratory Tests 01/17/17 01/17/17 01/18/17 05:15 05:15 06:10 WBC 4.9 4.9 Hgb 8.2 L 9.4 L D Hct 25.0 L 28.8 L D Plt Count 218 246 Sodium 146 H Potassium 3.9 Chloride 111 H Creatinine 0.9 01/18/17 08:30 WBC Hgb Hct Plt Count Sodium Pending Potassium Pending Chloride Creatinine Pending Assessment/Plan Assessment/Plan 61 year old man h/o HTN, HLD, CVA admitted with fever noted to have an elevated troponin, RV dysfunction on echo and confirmed today to have b/l pulmonary emboli. Elevated TnI and RV dilatation/hypokinesis likely secondary to pulmonary embolism s/p thrombolytic therapy REC: Continue current Rx. Transitioned to Eliquis. Would plan to repeat echo in 1-2 weeks to assess for RV improvement. Will sign off today; please reconsult as needed. Thanks. Please give patient our office # [phone] upon discharge, for follow up arrangements.
[2017-01-18] MEDS ORDERED: PT OWN MED DRAWER 7, Y5N ONE ×4 (09:50→22:37)
[2017-01-18 09:52] LABS: ALBUMIN 2.4 g/dl (3.4-5.0); ANION GAP 5 (8-16); CALCIUM 8.1 mg/dL (8.5-10.1); CO2 29 mmol/L (21-32); COCKROFT - GAULT 127.62; CREATININE 0.9 mg/dL (0.7-1.3); GLUCOSE,RANDOM 94 mg/dL (74-106); SGOT/AST 42 U/L (15-37); SGPT/ALT 55 U/L (12-78)
[2017-01-18 09:54] LABS: ALK PHOS 105 U/L (45-117); BILIRUBIN,TOTAL 0.4 mg/dL (0.2-1.0); TOT PROT 6.3 g/dl (6.4-8.2)
[2017-01-18] MEDS: ASPIRIN COATED 81 MG TABLET.EC PO SCH (10:23)
[2017-01-18] MEDS: MAGNESIUM OXIDE 400 MG TABLET (FP) PO SCH ×2 (10:23→22:35)
[2017-01-18] MEDS: RANITIDINE HCL 150 MG TABLET (FP) PO SCH ×2 (10:24→22:35)
[2017-01-18] MEDS: LACTOBACILLUS ACIDOPHILUS 1 EACH TAB (FP) PO SCH (10:24)
[2017-01-18] MEDS: POLYETHYLENE GLYCOL 3350 119 GM BTL PO SCH ×2 (10:24→22:35)
[2017-01-18] MEDS: MULTIVITAMINS (DAILY MVI) TABLET (FP) PO SCH (10:24)
[2017-01-18] MEDS: FLUTICASONE PROP 0.05% 16 GM NASAL SPRAY NS SCH ×2 (10:25→22:35)
[2017-01-18] MEDS: APIXABAN 5 MG TABLET PO SCH ×2 (10:26→22:35)
--- NOTE | 2017-01-18 14:19 | PN ---
Progress Note, Physician History of Present Illness: stable feels much better no complaints - Current Medication List Current Medications: Active Medications Apixaban (Eliquis -) 10 mg PO BID [facility] Stop: 01/25/17 09:59 Last Admin: 01/18/17 10:26 Dose: 10 mg Aspirin (Ecotrin -) 81 mg PO DAILY [facility] Last Admin: 01/18/17 10:23 Dose: 81 mg Baclofen (Lioresal -) 10 mg PO DAILY@2100 [facility] Benzocaine/Menthol (Cepacol Lozenge -) 1 each MM PRN PRN PRN Reason: SORE THROAT Docusate Sodium (Colace -) 300 mg PO HS [facility] Fluticasone Propionate (Flonase -) 1 spray NS BID [facility] Last Admin: 01/18/17 10:25 Dose: 1 spray Piperacillin Sod/Tazobactam Sod (Zosyn 3.375gm Ivpb (Pre-Docked)) 50 mls @ 100 mls/hr IVPB Q8H-IV [facility] PRN Reason: Protocol Last Admin: 01/18/17 10:23 Dose: 100 mls/hr Lactobacillus Acidophilus (Bacid -) 1 tab PO DAILY [facility] Last Admin: 01/18/17 10:24 Dose: 1 tab Magnesium Oxide (Mag-Ox -) 400 mg PO BID [facility] Last Admin: 01/18/17 10:23 Dose: 400 mg Multivitamins/Minerals/Vitamin C (Tab-A-Vit -) 1 tab PO DAILY [facility] Last Admin: 01/18/17 10:24 Dose: 1 tab Oxycodone HCl (Roxicodone -) 5 mg PO Q6H PRN PRN Reason: PAIN Polyethylene Glycol (Miralax (For Daily Use) -) 17 gm PO BID [facility] Last Admin: 01/18/17 10:24 Dose: 17 gm Ranitidine HCl (Zantac -) 150 mg PO BID [facility] Last Admin: 01/18/17 10:24 Dose: 150 mg - Objective Vital Signs: Vital Signs Temperature 98.2 F 01/18/17 10:00 Pulse Rate 84 01/18/17 10:00 Respiratory Rate 18 01/18/17 10:00 Blood Pressure 120/72 01/18/17 10:00 O2 Sat by Pulse Oximetry (%) 99 01/17/17 21:00 Constitutional: Yes: No Distress, Calm Cardiovascular: Yes: S1, S2 Respiratory: Yes: Regular, CTA Bilaterally Gastrointestinal: Yes: Normal Bowel Sounds, Soft Musculoskeletal: Yes: WNL Extremities: Yes: Other Wound/Incision: Yes: Dressing Dry and Intact Neurological: Yes: Alert, Oriented, Other (rt sided weakness) Labs: CBC, BMP 01/18/17 06:10 01/18/17 08:30 INR, PTT INR 1.13 (0.82-1.09) 01/16/17 05:40 Assessment/Plan sepsis josé luis h/o of spinal abscess incontinence increased trop fever leukocytosis pul embolus sinusitis plan continue current mgmt will stop abx tomorrow rest ct as per pul and primary
--- NOTE | 2017-01-18 15:04 | PN ---
Progress Note (short form) - Note Progress Note: Subjective: The patient was seen and examined at the bedside, he reports he is ready to go home. Current Medications Generic Name Dose Route Start Last Admin Trade Name Fidel PRN Reason Stop Dose Admin Aspirin 81 mg 01/16/17 10:00 01/17/17 09:47 Ecotrin - PO 81 mg DAILY JAYCEE Administration Baclofen 10 mg 01/15/17 21:00 01/16/17 21:00 Lioresal - PO 10 mg DAILY@2100 JAYCEE Administration Benzocaine/Menthol 1 each 01/15/17 11:52 Cepacol Lozenge - MM PRN PRN SORE THROAT Chlorhexidine Gluconate 1 applic 01/15/17 22:00 01/16/17 22:00 Hibiclens For Decolonization - TP 1 applic HS JAYCEE Administration Clopidogrel Bisulfate 75 mg 01/16/17 10:00 01/17/17 09:47 Plavix - PO 75 mg DAILY JAYCEE Administration Docusate Sodium 300 mg 01/15/17 22:00 01/16/17 22:00 Colace - PO 300 mg HS JAYCEE Administration Fluticasone Propionate 1 spray 01/15/17 22:00 01/17/17 09:49 Flonase - NS 1 spray BID JAYCEE Administration Heparin Sodium (Porcine) 1,000 unit 01/15/17 11:52 Heparin - IVPUSH PRN PRN Heparin Heparin Sodium (Porcine) 5,000 unit 01/15/17 11:52 Heparin - IVPUSH PRN PRN Heparin Heparin Sodium (Porcine) 25, 500 mls @ 20 mls/hr 01/15/17 11:52 01/16/17 22:22 000 unit/ Sodium Chloride IV Not Given TITR JAYCEE Protocol 1,000 UNIT/HR Piperacillin Sod/Tazobactam Sod 50 mls @ 100 mls/hr 01/15/17 18:00 01/17/17 09: 45 Zosyn 3.375gm Ivpb (Pre-Docked) IVPB 100 mls/hr Q8H-IV JAYCEE Administration Protocol Alteplase, Recombinant 25 mg/ 250 mls @ 5 mls/hr 01/16/17 10:30 01/16/17 22:21 Sodium Chloride IVPB 01/18/17 12:29 Not Given ONCE ONE 0.5 MG/HR Alteplase, Recombinant 25 mg/ 250 mls @ 5 mls/hr 01/16/17 10:30 01/16/17 22:21 Sodium Chloride IVPB 01/18/17 12:29 Not Given ONCE ONE 0.5 MG/HR Sodium Chloride 1,000 mls @ 75 mls/hr 01/17/17 09:00 01/17/17 09:47 1/2 Normal Saline IV 75 mls/hr ASDIR JAYCEE Administration Lactobacillus Acidophilus 1 tab 01/16/17 10:00 01/17/17 09:46 Bacid - PO 1 tab DAILY JAYCEE Administration Magnesium Oxide 400 mg 01/15/17 22:00 01/17/17 09:47 Mag-Ox - PO 400 mg BID JAYCEE Administration Multivitamins/Minerals/Vitamin C 1 tab 01/16/17 10:00 01/17/17 09:46 Tab-A-Vit - PO 1 tab DAILY JAYCEE Administration Oxycodone HCl 5 mg 01/16/17 08:14 01/17/17 06:27 Roxicodone - PO 5 mg Q6H PRN Administration PAIN Polyethylene Glycol 17 gm 01/15/17 22:00 01/17/17 09:48 Miralax (For Daily Use) - PO 17 grams BID JAYCEE Administration Ranitidine HCl 150 mg 01/15/17 22:00 01/17/17 09:46 Zantac - PO 150 mg BID JAYCEE Administration Objective: Vital Signs Period Temp Pulse Resp BP Sys/Conner Pulse Ox Last 24 Hr 98.2 F-99.5 F 68-84 18-20 118-153/68-85 99 Physical Exam: General: NAD, A&Ox3 Lungs: CTA bilaterally Heart: RRR, S1S2 Abd: Soft, non-tender, non-distended. Normoactive bowel sounds Ext: Warm, well-perfused. 2+ DP/PT bilaterally Skin: Left hand healed noriega graft CBCD WBC 4.9 K/mm3 (4.0-10.0) 01/18/17 06:10 RBC 3.51 M/mm3 (4.00-5.60) L 01/18/17 06:10 Hgb 9.4 GM/dL (11.7-16.9) L D 01/18/17 06:10 Hct 28.8 % (35.4-49) L D 01/18/17 06:10 MCV 82.0 fl (80-96) 01/18/17 06:10 MCHC 32.7 g/dl (32.0-35.9) 01/18/17 06:10 RDW 15.0 % (11.9-15.9) 01/18/17 06:10 Plt Count 246 K/MM3 (134-434) 01/18/17 06:10 MPV 7.2 fl (7.5-11.1) L 01/18/17 06:10 CMP Sodium 143 mmol/L (136-145) 01/18/17 08:30 Potassium 4.1 mmol/L (3.5-5.1) 01/18/17 08:30 Chloride 109 mmol/L (98-107) H 01/18/17 08:30 Carbon Dioxide 29 mmol/L (21-32) 01/18/17 08:30 Anion Gap 5 (8-16) L 01/18/17 08:30 BUN 11 mg/dL (7-18) 01/18/17 08:30 Creatinine 0.9 mg/dL (0.7-1.3) 01/18/17 08:30 Creat Clearance w eGFR > 60 (>60) 01/18/17 08:30 Random Glucose 94 mg/dL (74-106) 01/18/17 08:30 Calcium 8.1 mg/dL (8.5-10.1) L 01/18/17 08:30 Total Bilirubin 0.4 mg/dL (0.2-1.0) D 01/18/17 08:30 AST 42 U/L (15-37) H D 01/18/17 08:30 ALT 55 U/L (12-78) D 01/18/17 08:30 Alkaline Phosphatase 105 U/L (45-117) 01/18/17 08:30 Total Protein 6.3 g/dl (6.4-8.2) L 01/18/17 08:30 Albumin 2.4 g/dl (3.4-5.0) L 01/18/17 08:30 CARDIAC ENZYMES Creatine Kinase 500 IU/L (39-308) H D 01/11/17 19:50 Troponin I 1.02 ng/ml (0.00-0.05) H* 01/12/17 05:15 Microbiology 01/13/17 06:05 Blood - Peripheral Venous Blood Culture - Final NO GROWTH AFTER 5 DAYS INCUBATION 01/13/17 05:50 Blood - Central Line Blood Culture - Final NO GROWTH AFTER 5 DAYS INCUBATION 01/11/17 19:40 Nasopharyngeal Swab Respiratory Virus Panel - Preliminary 01/11/17 19:50 Blood - Peripheral Venous Blood Culture - Final NO GROWTH AFTER 5 DAYS INCUBATION 01/11/17 20:17 Urine - Urine - Catheterized Urine Culture - Final Escherichia Coli 01/11/17 19:50 Blood - Peripheral Venous Blood Culture - Final Escherichia Coli 01/12/17 11:30 Urine For Antigen Detection Legionella Antigen - Final 01/12/17 11:30 Urine For Antigen Detection Streptococcus pneumoniae Antigen (M - Final 01/11/17 19:40 Nasopharyngeal Swab Influenza Types A,B Antigen ([place]) - Final 01/11/17 19:40 Nasopharyngeal Swab - Final IMAGING: CXR 01/11 - No acute lung disease present EKG 01/11 - Sinus tachycardia, possible left atrial enlargement, inferior infarct - age undetermined EKG 01/12 - Normal sinus rhythm, prolonged QT interval, T-waves abnormal - consider anterior infarct Assessment: 62 year old male with PMHx HTN, HLD, CVA with residual right-sided weakness, 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 Plan: 1) ID: Severe sepsis 2/2 E.coli bacteremia (/ vials), e.coli UTI - Afebrile since 01/14 - Continue Zosyn (01/11- ). Stop tomorrow per ID - Appreciate ID consult Hx of spinal abscess - No evidence indicating recurrence of spinal abscess at the moment, patient denies pain in back, no tenderness - If becomes symptomatic, will consider MRI spine 2) Pulmonary: Acute pulmonary embolism - Chest CTA with an elongated embolus straddling the main pulmonary artery bifurcation extending into the left and right pulmonary arteries as well as the lower lobe lobar arteries bilaterally - Non-specific left pulmonary apex groundglass interstitial opacity, will need outpatient follow-up to assess stability - Thrombolysis on 01/16 - Heparin gtt discontinued and started on Eliquis 01/17 - Appreciate pulmonary consult 3) Cardiology: Elevated troponins - Likely demand ischemia secondary to hypotension from sepsis - Troponin trended down - Plan further cards w/u once infection resolved - ECHO with RV dilation - Appreciate cardiology consult 4): SMILEY - Resolved 5) Endocrine: Possible right thyroid nodule - Evidence on Chest CTA - F/u outpatient thyroid ultrasound 4) Heme: Anemia - Stable 5) F/E/N Fluids: Encourage PO intake Electrolytes: Monitor and replace as needed Nutrition: Low-sodium diet 7. Prophylaxis - Started on Eliquis 10mg bid - PT Dispo: Continues to require ICU care. CODE STATUS: FULL CODE Visit type - Emergency Visit Emergency Visit: Yes ED Registration Date: 01/11/17 Care time: The patient presented to the Emergency Department on the above date and was hospitalized for further evaluation of their emergent condition. - New Patient This patient is new to me today: No - Critical Care Critical Care patient: No
[2017-01-18] MEDS ORDERED: BACLOFEN 10 MG TABLET (FP) PO SCH (21:00)
[2017-01-18] MEDS ORDERED: DOCUSATE SODIUM 100 MG CAPSULE (FP) PO SCH (22:00)
[2017-01-18] MEDS ORDERED: CHLORHEXIDINE GLUCONATE 4% CLEANSER FOR DECOLONIZATION TP SCH (22:00)
[2017-01-18] MEDS: oxyCODONE HCL 5 MG TABLET PO PRN (22:35)
[2017-01-19] MEDS: PIPERACILLIN/TAZOB 3.375 GM 50 ML IVPB SCH ×3 (03:52→19:12)
[2017-01-19 07:09] VITALS: TEMP 98.6
[2017-01-19 08:22] LABS: MCH 26.8 pg (25.7-33.7); MCHC 32.6 g/dl (32.0-35.9); MEAN CELL VOLUME 82.2 fl (80-96); PLATELET COUNT 244 K/MM3 (134-434); RDW 14.9 % (11.9-15.9); WHITE BLOOD COUNT 5.3 K/mm3 (4.0-10.0)
--- NOTE | 2017-01-19 08:30 | PN ---
Progress Note, Physician History of Present Illness: doing well no complaint just weakness - Current Medication List Current Medications: Active Medications Apixaban (Eliquis -) [address] [facility] Stop: 01/25/17 09:59 Last Admin: 01/18/17 22:35 Dose: 10 mg Aspirin (Ecotrin -) [address] [facility] Last Admin: 01/18/17 10:23 Dose: 81 mg Baclofen (Lioresal -) 10 mg PO DAILY@2100 [facility] Last Admin: 01/18/17 22:34 Dose: 10 mg Benzocaine/Menthol (Cepacol Lozenge -) 1 each MM PRN PRN PRN Reason: SORE THROAT Docusate Sodium (Colace -) [address] [facility] Last Admin: 01/18/17 22:34 Dose: 300 mg Fluticasone Propionate (Flonase -) [address] [facility] Last Admin: 01/18/17 22:35 Dose: 1 spray Piperacillin Sod/Tazobactam Sod (Zosyn 3.375gm Ivpb (Pre-Docked)) 50 mls @ 100 mls/hr IVPB Q8H-IV [facility] PRN Reason: Protocol Last Admin: 01/19/17 03:52 Dose: 100 mls/hr Lactobacillus Acidophilus (Bacid -) [address] [facility] Last Admin: 01/18/17 10:24 Dose: 1 tab Magnesium Oxide (Mag-Ox -) [address] [facility] Last Admin: 01/18/17 22:35 Dose: 400 mg Multivitamins/Minerals/Vitamin C (Tab-A-Vit -) [address] [facility] Last Admin: 01/18/17 10:24 Dose: 1 tab Oxycodone HCl (Roxicodone -) 5 mg PO Q6H PRN PRN Reason: PAIN Last Admin: 01/18/17 22:35 Dose: 5 mg Polyethylene Glycol (Miralax (For Daily Use) -) [address] [facility] Last Admin: 01/18/17 22:35 Dose: 17 gm Ranitidine HCl (Zantac -) [address] [facility] Last Admin: 01/18/17 22:35 Dose: 150 mg - Objective Vital Signs: Vital Signs Temperature 98.6 F 01/19/17 07:07 Pulse Rate 69 01/19/17 07:07 Respiratory Rate 20 01/19/17 07:07 Blood Pressure 150/89 01/19/17 07:07 O2 Sat by Pulse Oximetry (%) 99 01/18/17 21:00 Constitutional: Yes: No Distress, Calm Cardiovascular: Yes: Regular Rate and Rhythm Respiratory: Yes: Regular, CTA Bilaterally Musculoskeletal: Yes: Other Extremities: Yes: Other Neurological: Yes: Alert, Oriented, Other (rt sided weakness) Psychiatric: Yes: Alert, Oriented Labs: CBC, BMP 01/18/17 08:30 INR, PTT INR 1.13 (0.82-1.09) 01/16/17 05:40 Assessment/Plan sepsis josé luis h/o of spinal abscess incontinence increased trop fever leukocytosis pul embolus sinusitis plan continue current mgmt abx stopped rest ct as per pul and primary physio patient stable
[2017-01-19] MEDS: ASPIRIN COATED 81 MG TABLET.EC PO SCH (10:11)
[2017-01-19] MEDS: MULTIVITAMINS (DAILY MVI) TABLET (FP) PO SCH (10:11)
[2017-01-19] MEDS: LACTOBACILLUS ACIDOPHILUS 1 EACH TAB (FP) PO SCH (10:11)
[2017-01-19] MEDS: MAGNESIUM OXIDE 400 MG TABLET (FP) PO SCH (10:11)
[2017-01-19] MEDS: POLYETHYLENE GLYCOL 3350 119 GM BTL PO SCH (10:12)
[2017-01-19] MEDS: RANITIDINE HCL 150 MG TABLET (FP) PO SCH (10:12)
[2017-01-19] MEDS: APIXABAN 5 MG TABLET PO SCH (10:13)
[2017-01-19] MEDS: FLUTICASONE PROP 0.05% 16 GM NASAL SPRAY NS SCH (10:14)
[2017-01-19] MEDS: oxyCODONE HCL 5 MG TABLET PO PRN (11:17)
--- NOTE | 2017-01-19 14:01 | PN ---
Physical Exam: SUBJECTIVE: Patient seen and examined Patient feels better, denies chest pain, sob. denies fever, chills. denies pain abdomen, nause, vomiting denies bleeding from gums, urine, stool. denies sob completed 9 days of antibiotics. hb 8.9 OBJECTIVE: Vital Signs Period Temp Pulse Resp BP Sys/Conner Pulse Ox Last 24 Hr 98.2 F-98.6 F 64-72 16-20 125-150/75-89 99 GENERAL: The patient is awake, alert, and fully oriented, in no acute distress. EYES: PERRL, ENT: moist mucous membranes. NECK: Trachea midline, LUNGS: Breath sounds equal, clear to auscultation bilaterally, no wheezes, no accessory muscle use. HEART:s1s2 normal. ABDOMEN: Soft, nontender, nondistended, normoactive bowel sounds, EXTREMITIES: 2+ pulses, warm, well-perfused, PSYCH: Normal mood, normal affect. SKIN: Warm, dry, Laboratory Results - last 24 hr 01/19/17 01/19/17 06:30 06:30 WBC 5.3 RBC 3.31 L Hgb 8.9 L Hct 27.2 L MCV 82.2 MCHC 32.6 RDW 14.9 Plt Count 244 MPV 7.0 L PTT (Actin FS) 36.1 H D Active Medications Generic Name Dose Route Start Last Admin Trade Name Freq PRN Reason Stop Dose Admin Apixaban 10 mg 01/18/17 10:00 01/19/17 10:13 Eliquis - PO 01/25/17 09:59 10 mg BID JAYCEE Administration Aspirin 81 mg 01/18/17 10:00 01/19/17 10:11 Ecotrin - PO 81 mg DAILY JAYCEE Administration Baclofen 10 mg 01/18/17 21:00 01/18/17 22:34 Lioresal - PO 10 mg DAILY@2100 JAYCEE Administration Benzocaine/Menthol 1 each 01/17/17 23:40 Cepacol Lozenge - MM PRN PRN SORE THROAT Docusate Sodium 300 mg 01/18/17 22:00 01/18/17 22:34 Colace - PO 300 mg HS JAYCEE Administration Fluticasone Propionate 1 spray 01/18/17 10:00 01/19/17 10:14 Flonase - NS 1 spray BID JAYCEE Administration Piperacillin Sod/Tazobactam Sod 50 mls @ 100 mls/hr 01/18/17 02:00 01/19/17 10: 13 Zosyn 3.375gm Ivpb (Pre-Docked) IVPB 100 mls/hr Q8H-IV JAYCEE Administration Protocol Lactobacillus Acidophilus 1 tab 01/18/17 10:00 01/19/17 10:11 Bacid - PO 1 tab DAILY JAYCEE Administration Magnesium Oxide 400 mg 01/18/17 10:00 01/19/17 10:11 Mag-Ox - PO 400 mg BID JAYCEE Administration Multivitamins/Minerals/Vitamin C 1 tab 01/18/17 10:00 01/19/17 10:11 Tab-A-Vit - PO 1 tab DAILY JAYCEE Administration Oxycodone HCl 5 mg 01/17/17 23:40 01/19/17 11:17 Roxicodone - PO 5 mg Q6H PRN Administration PAIN Polyethylene Glycol 17 gm 01/18/17 10:00 01/19/17 10:12 Miralax (For Daily Use) - PO 17 gm BID JAYCEE Administration Ranitidine HCl 150 mg 01/18/17 10:00 01/19/17 10:12 Zantac - PO 150 mg BID JAYCEE Administration ASSESSMENT/PLAN: 1. sepsis. improved could be from gram negative bacteremia and uti afebrile antibiotics as per ID 2 Acute Pulmonary embolism, unprovoked. streptokinase infusion stopped yesterday on eliquis 10mg bid for 7 day than change to 5mg bid monitor for bleeding keep spo2 > 90 3. SMILEY - improved 4. normocytic anemia monitor hb 5. Prophylaxis - on eliquis and zantac. GI prophylaxis : zantac bid Dispo: transfer to floor Visit type - Emergency Visit Emergency Visit: Yes ED Registration Date: 01/11/17 Care time: The patient presented to the Emergency Department on the above date and was hospitalized for further evaluation of their emergent condition. - New Patient This patient is new to me today: No - Critical Care Critical Care patient: No
--- NOTE | 2017-01-19 14:02 | PN ---
Teaching Attending Note Name of Resident: Judson Coats ATTENDING PHYSICIAN STATEMENT I saw and evaluated the patient. I reviewed the resident's note and discussed the case with the resident. I agree with the resident's findings and plan as documented. Wagner ANTON MD
[2017-01-19 15:35] VITALS: BP 126/88; PULSE 86
--- NOTE | 2017-01-19 17:09 | DS ---
Physical Exam: SUBJECTIVE: Patient seen and examined oob to chair. No complaints. OBJECTIVE: Vital Signs Period Temp Pulse Resp BP Sys/Conner Pulse Ox Last 24 Hr 98.2 F-98.6 F 64-86 18-20 126-150/75-89 99 PHYSICAL EXAM GENERAL: The patient is awake, alert, and fully oriented, in no acute distress. HEAD: Normal with no signs of trauma. EYES: PERRL, extraocular movements intact, sclera anicteric, conjunctiva clear. LUNGS: Breath sounds equal, clear to auscultation bilaterally, no wheezes, no crackles, no accessory muscle use. HEART: Regular rate and rhythm, S1, S2 without murmur, rub or gallop. ABDOMEN: Soft, nontender, nondistended, normoactive bowel sounds, no guarding, no rebound, no hepatosplenomegaly, no masses. EXTREMITIES: 2+ pulses, warm, well-perfused, no edema. Brace on left leg. NEUROLOGICAL: Cranial nerves II through XII grossly intact. Normal speech, gait not observed. Laboratory Results - last 24 hr 01/19/17 01/19/17 06:30 06:30 WBC 5.3 RBC 3.31 L Hgb 8.9 L Hct 27.2 L MCV 82.2 MCHC 32.6 RDW 14.9 Plt Count 244 MPV 7.0 L PTT (Actin FS) 36.1 H D HOSPITAL COURSE Date of Admission:01/11/17 Date of Discharge: 01/19/17 IMAGING: CXR 01/11 - No acute lung disease present EKG 01/11 - Sinus tachycardia, possible left atrial enlargement, inferior infarct - age undetermined EKG 01/12 - Normal sinus rhythm, prolonged QT interval, T-waves abnormal - consider anterior infarct US 01/12 - negative for DVT bilaterally CTA 01/15 - elongated embolus straddling the main pulmonary artery bifurcation extending into the left and right pulmonary arteries as well as the lower lobe lobar arteries bilaterally 62 year-old male with PMH of HTN, HLD, CVA with residual right-sided weakness, lengthy hospitalization for spinal abscess with subsequent neurogenic bladder, and melanoma, presented to ED at the prompting of his occupational therapist for fever and relative hypotension. 1) ID: Severe sepsis 2/2 E.coli bacteremia (/ vials), e.coli UTI - Afebrile since 01/14 - Completed course of Zosyn (01/11-01/19) Hx of spinal abscess - No evidence indicating recurrence of spinal abscess 2) Pulmonary: Acute pulmonary embolism with Right heart strain - s/p thrombolysis on 01/16 - Heparin gtt discontinued and started on Eliquis 01/17 - Echo 01/12: LV normal, septal motion consistent with conduction abnormality; RV mild to moderately reduced; mild TR; needs follow up with Dr. Mckay in 1-2 weeks - Non-specific left pulmonary apex groundglass interstitial opacity, will need 6 -week outpatient follow-up to assess stability 3) Cardiology: Elevated troponins - Likely demand ischemia secondary to hypotension from sepsis 4): SMILEY - Resolved 5) Endocrine: Possible right thyroid nodule - Evidence on Chest CTA - F/u outpatient thyroid ultrasound 6) Heme: Anemia - Stable Minutes to complete discharge: 35 Discharge Summary Reason For Visit: NSTEMI Current Active Problems Non-ST elevated myocardial infarction (non-STEMI) (Acute) Sepsis (Acute) Urinary tract infection (Acute) - Instructions Diet, Activity, Other Instructions: During your hospital stay you were diagnosed with a pulmonary embolism. You need to be on blood thinning medication. Two prescriptions have been sent to your pharmacy for Eliquis: 1. Take 10mg twice daily for the next 8 days; take the first dose TONIGHT; 2. After you have finished all the 10mg pills, then start taking the 5mg pills twice daily. It is very important you follow up with your primary care provider within one week of your discharge. You will also need a repeat CT scan of your chest in 6 weeks to assess an opacity in your left upper lung. You also need to followup with over short and damage clerk Dr. Mckay in 1-2 weeks. . Return to the emergency department for any new or worsening symptoms. Referrals: Milind Leos [Primary Care Provider] - Gabriel Mckay MD [Staff Physician] - 2 Weeks - Home Medications Comprehensive Discharge Medication List: Ambulatory Orders Baclofen 10 mg PO HS 10/16/15 Atenolol [Tenormin -] 50 mg PO DAILY tablet 12/22/15 Losartan Potassium [Cozaar -] 50 mg PO DAILY tablet 12/22/15 Docusate Sodium [Colace -] 100 mg PO TID 04/28/17 Oxycodone HCl/Acetaminophen [Percocet 5-325 mg Tablet] 1 tab PO Q6H 01/12/17 Tamsulosin HCl 0.4 mg PO 01/12/17 Zolpidem Tartrate [Ambien] 10 mg PO 01/12/17 Apixaban [Eliquis -] 10 mg PO BID #17 tablet 01/19/17 Apixaban [Eliquis] 5 mg PO BID #60 tablet 01/19/17 This patient is new to me today: No Emergency Visit: Yes ED Registration Date: 01/11/17 Care time: The patient presented to the Emergency Department on the above date and was hospitalized for further evaluation of their emergent condition. Critical Care patient: No - Discharge Referral Referred to [facility] Med P.C.: No
== END 2017-01-19 20:16 | disposition home or self-care (01) | DRG 853 ==
LOC: JER 17:51 → JERBED 22:57 → UNDOADMIN 23:16 → JERBED 23:16 → JICU 01-12 00:28 → J8W 01-17 15:21
PROVIDERS: ADMIT Internal Medicine; ATTEND Nurse Practitioner Acute Care
PROC: 05HM33Z Insertion of Infusion Device into Right Internal Jugular Vein, Percutaneous Approach (ICD-10-PCS; principal; 2017-01-12)
PROC: 02CR3ZZ Extirpation of Matter from Left Pulmonary Artery, Percutaneous Approach (ICD-10-PCS; 2017-01-16)
PROC: 02CQ3ZZ Extirpation of Matter from Right Pulmonary Artery, Percutaneous Approach (ICD-10-PCS; 2017-01-16)
PROC: 3E06317 Introduction of Other Thrombolytic into Central Artery, Percutaneous Approach (ICD-10-PCS; 2017-01-16)
PROC: 3E06317 Introduction of Other Thrombolytic into Central Artery, Percutaneous Approach (ICD-10-PCS; 2017-01-16)
PROC: B30TZZZ Plain Radiography of Left Pulmonary Artery (ICD-10-PCS; 2017-01-16)
PROC: B30SZZZ Plain Radiography of Right Pulmonary Artery (ICD-10-PCS; 2017-01-16)
PROC: 05HN33Z Insertion of Infusion Device into Left Internal Jugular Vein, Percutaneous Approach (ICD-10-PCS; 2017-01-16)
PROC: B514ZZA Fluoroscopy of Left Jugular Veins, Guidance (ICD-10-PCS; 2017-01-16)
DX: A41.51 Sepsis due to Escherichia coli [E. coli] (principal); I26.99 Other pulmonary embolism without acute cor pulmonale; I69.351 Hemiplegia and hemiparesis following cerebral infarction affecting right dominant side; N17.9 Acute kidney failure, unspecified; E87.2 Acidosis; N39.0 Urinary tract infection, site not specified; I24.8 Other forms of acute ischemic heart disease; M54.89 Other dorsalgia; R65.20 Severe sepsis without septic shock; I10 Essential (primary) hypertension; E78.5 Hyperlipidemia, unspecified; N39.498 Other specified urinary incontinence; N31.8 Other neuromuscular dysfunction of bladder; D64.9 Anemia, unspecified; R15.9 Full incontinence of feces; J32.8 Other chronic sinusitis; E04.1 Nontoxic single thyroid nodule; Z85.820 Personal history of malignant melanoma of skin
CPT/HCPCS: 36415; 36556; 37187; 37212; 61651; 70486-TC; 71010-TC; 71275-TC; 75743-TC; 75746-TC; 76856-TC; 77001-TC; 80048; 80053; 81003; 81015; 82272; 82550; 82553; 82803; 83036; 83605; 83735; 84100; 84484; 85025; 85027; 85610; 85730; 86850; 86900; 86901; 87040; 87086; 87186; 87254; 87804; 87899; 93005; 93010; 93306-TC; 93970-TC; 97116-GP; 97161-GP; 99285-25; C1751; C1769; C1887; C1894; C9999; G0480; J0475; J1644

== ENCOUNTER 2019-09-02 10:25 | Day surgery (SDC) | payer OTHER ==
[2019-09-01 13:59] VITALS: BMI 38.0
[2019-09-02 13:42] VITALS: TEMP 97.8
[2019-09-02 14:50] VITALS: BP 128/59; PULSE 60
--- NOTE | 2019-09-04 16:11 | PATH ---
Surgical Pathology Report Patient Name: SO MCRAE [facility]. Rec. #: [id number] /Age/Gender: 1955 (Age: 64) / M Account: [id number] Location: U-ENDOSCOPY Taken: 09/02/2019 Received: 09/03/2019 Reported: 09/04/2019 Physicians: Santiago Mcelroy D.O. Specimen(s) Received ANAL POLYP BX Clinical History Abnormal imaging scan Postoperative diagnosis: Anal polyp, diverticulosis Final Diagnosis ANAL POLYP BIOPSY: SCANT STRIPS OF SUPERFICIAL COLONIC GLANDS. NO MALIGNANT CELLS PRESENT IN THIS MATERIAL. COMMENT: LIMITED BIOPSY MATERIAL, INSUFFICIENT FOR A DEFINITIVE DIAGNOSIS. MULTIPLE SERIAL H&E STAINED SLIDES HAVE BEEN REVIEWED. Electronically Signed Rere Cho M.D. Gross Description Received in formalin, labeled "anal polyp biopsy" is a carrion, irregular portion of soft tissue measuring 0.1 cm. in greatest dimension. The specimen is submitted in toto in one cassette. 09/03/2019 saudi09/03/2019
== END 2019-09-02 14:51 | disposition home or self-care (01) ==
LOC: JASU-ENDO 10:25 → JOR 10:25 → JASU-ENDO 14:51
PROVIDERS: ATTEND Internal Medicine Gastroenterology
PROC: 0DBP8ZX Excision of Rectum, Via Natural or Artificial Opening Endoscopic, Diagnostic (ICD-10-PCS; principal; 2019-09-02 11:15)
DX: K62.0 Anal polyp (principal); R93.3 Abnormal findings on diagnostic imaging of other parts of digestive tract; K57.30 Diverticulosis of large intestine without perforation or abscess without bleeding; K64.8 Other hemorrhoids

== ENCOUNTER 2021-07-25 16:35 | Emergency (ER) | payer OTHER ==
[2021-07-25 17:03] VITALS: TEMP 98.2; BMI 34.0
[2021-07-25 19:29] LABS: BASO % 0.5 % (0-2.0); EOS % 3.7 % (0-4.5); HEMATOCRIT 28.6 % (35.4-49); HEMOGLOBIN 9.3 GM/dL (11.7-16.9); LYMPH % 24.1 % (8-40); MCH 22.1 pg (25.7-33.7); MCHC 32.3 g/dl (32.0-35.9); MEAN CELL VOLUME 68.4 fl (80-96); MEAN PLT VOLUME 6.6 fl (7.5-11.1); MONO % 7.9 % (3.8-10.2); NEUT % 63.8 % (42.8-82.8); PLATELET COUNT 331 10^3/uL (134-434); RBC 4.18 M/mm3 (4.00-5.60); RDW 18.1 % (11.9-15.9); WHITE BLOOD COUNT 7.7 K/mm3 (4.0-10.0)
[2021-07-25 19:49] LABS: CALCIUM 8.8 mg/dL (8.5-10.1)
[2021-07-25 19:50] LABS: ALBUMIN 3.5 g/dl (3.4-5.0); BLOOD UREA NITROGEN 21.7 mg/dL (7-18); MAGNESIUM 2.4 mg/dL (1.8-2.4)
[2021-07-25 19:54] LABS: BILIRUBIN,TOTAL 0.4 mg/dL (0.2-1); TOT PROT 8.5 g/dl (6.4-8.2)
[2021-07-25 20:08] LABS: ERYTHROCYTE SEDIMENTATION RATE 49 mm/hr (0-20)
[2021-07-25 23:44] VITALS: BP 90/67; PULSE 71
== END 2021-07-25 23:44 | disposition short-term general hospital (02) ==
LOC: JER 16:35
DX: R29.6 Repeated falls (principal)
CPT/HCPCS: 36415; 80053; 82550; 82553; 83735; 84484; 85025; 85651; 86140; 86850; 86900; 86901; 93005; 93010; 99285-25; C9803; U0003; U0005

== ENCOUNTER 2023-11-02 13:19 | Inpatient (IN) | payer OTHER ==
[2023-11-02 16:48] LABS: BASO % 0.2 % (0-2.0); EOS % 0.1 % (0-4.5); HEMATOCRIT 26.2 % (35.4-49); HEMOGLOBIN 8.4 GM/dL (11.7-16.9); LYMPH % 7.3 % (8-40); MCH 22.6 pg (25.7-33.7); MCHC 31.9 g/dl (32.0-35.9); MEAN CELL VOLUME 70.6 fl (80-96); MEAN PLT VOLUME 7.2 fl (7.5-11.1); MONO % 10.1 % (3.8-10.2); NEUT % 82.3 % (42.8-82.8); PLATELET COUNT 336 10^3/uL (134-434); RBC 3.71 M/mm3 (4.00-5.60); RDW 20.5 % (11.9-15.9); WHITE BLOOD COUNT 16.3 K/mm3 (4.0-10.0)
[2023-11-02 16:56] LABS: INR 2.34 (0.83-1.09); PROTHROMBIN TIME (PATIENT) 26.9 SEC (9.7-13.0)
[2023-11-02 16:58] LABS: ACTIVATED PTT 33.7 SECONDS (25.2-36.5)
[2023-11-02 17:01] LABS: CALCIUM 8.3 mg/dL (8.5-10.1)
[2023-11-02 17:02] LABS: ALBUMIN 2.3 g/dl (3.4-5.0)
[2023-11-02 17:03] LABS: BLOOD UREA NITROGEN 53.2 mg/dL (7-18)
[2023-11-02 17:05] LABS: CREATININE 2.7 mg/dL (0.55-1.3)
[2023-11-02 17:07] LABS: TOT PROT 7.5 g/dl (6.4-8.2)
[2023-11-02 17:08] LABS: BILIRUBIN,TOTAL 0.6 mg/dL (0.2-1)
[2023-11-02] MEDS: LACTATED RINGERS SOLUTION 1000 ML INFUS.BAG IV ONE (19:35)
[2023-11-02 20:11] LABS: EPI CELLS 20 /uL (0-25.1); HYALINE CASTS 1 /uL (0-3.1); PH,URINE 5.5 (5.0-8.0); URINE APPEARANCE TURBID; URINE BACTERIA >9,000 /uL (0-1359); URINE BILIRUBIN NEGATIVE (NEGATIVE); URINE COLOR YELLOW; URINE GLUCOSE (UA) NEGATIVE (NEGATIVE); URINE KETONE TRACE (NEGATIVE); URINE LEUK ESTERASE 3+ (NEGATIVE); URINE NITRITE NEGATIVE (NEGATIVE); URINE PROTEIN 2+ (NEGATIVE); URINE RBC 534 /uL (0-23.9); URINE WBC 11892 /uL (0-25.8)
[2023-11-02] MEDS ORDERED: ACETAMINOPHEN INJECTION 100 ML IVPB ONE (20:31)
[2023-11-02] MEDS ORDERED: PIPERACILLIN/TAZOB 4.5 GM 4.5 GM/100 ML BAG IVPB ONE ×2 (20:32→21:26)
[2023-11-02] MEDS: ACETAMINOPHEN 1000 MG/100 ML BAG IVPB ONE (20:41)
[2023-11-02 21:01] LABS: CHOLESTEROL 94 mg/dL (50-200)
[2023-11-02 21:02] LABS: LDL CHOLESTEROL (ONLY SJRH) 41 mg/dL (5-100)
[2023-11-02 21:04] LABS: HDL CHOLESTEROL 21 mg/dL (40-60)
[2023-11-02] MEDS: LACTATED RINGERS SOLUTION 1,000 ML IV STA (21:33)
[2023-11-02] MEDS: PIPERACILLIN/TAZOB 4.5 GM 4.5 GM in DEXTROSE 5%-WATER 100 ML IVPB ONE (22:06)
[2023-11-02] MEDS ORDERED: VANCOMYCIN 1 GRAM (PRE-DOCKED) 1,000 MG/250 ML BAG IVPB ONE (22:40)
[2023-11-02] MEDS: VANCOMYCIN 1,000 MG in DEXTROSE 5%-WATER - 250 ML IVPB ONE (23:02)
[2023-11-03] MEDS: LACTATED RINGERS SOLUTION 1,000 ML/1,000 ML INFUS.BAG IV SCH (00:50)
[2023-11-03] MEDS: SODIUM CHLORIDE 1,000 ML IV SCH (01:13)
[2023-11-03] MEDS ORDERED: PIPERACILLIN/TAZOB 3.375 GM 4.5 GM in DEXTROSE 5%-WATER - 50 ML IVPB SCH (02:00)
[2023-11-03] MEDS ORDERED: PIPERACILLIN/TAZOB 4.5 GM 4.5 GM in DEXTROSE 5%-WATER 100 ML IVPB SCH (02:00)
[2023-11-03] MEDS: ACETAMINOPHEN 325 MG TABLET (FP) PO PRN (03:16)
[2023-11-03] MEDS ORDERED: ACETAMINOPHEN 325 MG TABLET (FP) ONE (03:31)
[2023-11-03 07:00] LABS: POTASSIUM 4.2 mmol/L (3.5-5.1)
[2023-11-03 07:09] LABS: BLOOD UREA NITROGEN 54.4 mg/dL (7-18); CALCIUM 7.9 mg/dL (8.5-10.1); MAGNESIUM 1.9 mg/dL (1.8-2.4)
[2023-11-03 07:12] LABS: CREATININE 2.5 mg/dL (0.55-1.3); PHOSPHOROUS 3.1 mg/dL (2.5-4.9)
[2023-11-03 07:14] LABS: BILIRUBIN,TOTAL 0.5 mg/dL (0.2-1); TOT PROT 6.4 g/dl (6.4-8.2)
[2023-11-03] MEDS ORDERED: PIPERACILLIN/TAZOB 3.375 GM 3.375 GM/50 ML BAG IVPB ONE (08:30)
[2023-11-03] MEDS: PIPERACILLIN/TAZOB 3.375 GM 3.375 GM in DEXTROSE 5%-WATER - 50 ML IVPB ONE (08:37)
[2023-11-03] MEDS: APIXABAN 5 MG TABLET PO SCH (09:47)
[2023-11-03] MEDS ORDERED: PIPERACILLIN/TAZOB 4.5 GM 4.5 GM/100 ML BAG IVPB ONE ×2 (16:15→21:08)
[2023-11-03] MEDS: PIPERACILLIN/TAZOB 4.5 GM 4.5 GM in DEXTROSE 5%-WATER 100 ML IVPB SCH (16:19)
[2023-11-03] MEDS ORDERED: VANCOMYCIN HCL 1,500 MG in DEXTROSE 5%-WATER - 500 ML IVPB SCH (19:00)
[2023-11-03] MEDS ORDERED: APIXABAN 5 MG TABLET ONE (21:07)
[2023-11-03] MEDS ORDERED: ATORVASTATIN CA 40 MG TABLET (FP) ONE (21:08)
[2023-11-03] MEDS: ATORVASTATIN CA 40 MG TABLET (FP) PO SCH (21:21)
[2023-11-03] MEDS ORDERED: VANCOMYCIN PREMIX 1.5 GM 1,500 MG/300 ML BAG IVPB SCH (22:00)
[2023-11-04] MEDS ORDERED: PIPERACILLIN/TAZOB 4.5 GM 4.5 GM/100 ML BAG IVPB ONE (06:13)
[2023-11-04 06:59] LABS: POTASSIUM 4.1 mmol/L (3.5-5.1)
[2023-11-04 07:01] LABS: CALCIUM 7.9 mg/dL (8.5-10.1)
[2023-11-04 07:02] LABS: ALBUMIN 1.7 g/dl (3.4-5.0); MAGNESIUM 1.9 mg/dL (1.8-2.4)
[2023-11-04 07:05] LABS: CREATININE 1.9 mg/dL (0.55-1.3); PHOSPHOROUS 2.2 mg/dL (2.5-4.9)
[2023-11-04 07:07] LABS: BILIRUBIN,TOTAL 0.4 mg/dL (0.2-1); TOT PROT 5.8 g/dl (6.4-8.2)
[2023-11-04 08:31] LABS: INR 1.92 (0.83-1.09); PROTHROMBIN TIME (PATIENT) 22.1 SEC (9.7-13.0)
[2023-11-04 08:48] LABS: HEMATOCRIT 19.9 % (35.4-49); MCH 23.3 pg (25.7-33.7); MCHC 33.5 g/dl (32.0-35.9); MEAN CELL VOLUME 69.6 fl (80-96); MEAN PLT VOLUME 7.2 fl (7.5-11.1); PLATELET COUNT 266 10^3/uL (134-434); RBC 2.86 M/mm3 (4.00-5.60); WHITE BLOOD COUNT 8.6 K/mm3 (4.0-10.0)
[2023-11-04 08:55] LABS: HEMOGLOBIN 6.7 GM/dL (11.7-16.9)
[2023-11-04] MEDS ORDERED: APIXABAN 5 MG TABLET ONE (10:12)
[2023-11-04] MEDS: LACTATED RINGERS SOLUTION 1,000 ML/1,000 ML INFUS.BAG IV SCH (15:30)
[2023-11-04] MEDS: VANCOMYCIN/WATER FOR INJ (PEG) 1,000 MG/200 ML BAG IVPB ONE (19:55)
[2023-11-04] MEDS: TRIMETHOBENZAMIDE HCL 200MG/2ML INJ IM ONE (19:55)
[2023-11-04] MEDS: ACETAMINOPHEN 325 MG TABLET (FP) PO PRN (21:31)
[2023-11-04] MEDS: APIXABAN 5 MG TABLET PO SCH (21:32)
[2023-11-04] MEDS: ATORVASTATIN CA 40 MG TABLET (FP) PO SCH (21:32)
[2023-11-04] MEDS: COLLAGENASE CLOSTRIDIUM HIST. 30 GRAMS TUBE TP SCH (21:33)
[2023-11-04] MEDS: PIPERACILLIN/TAZOB 4.5 GM 4.5 GM in DEXTROSE 5%-WATER 100 ML IVPB SCH (21:34)
[2023-11-04] MEDS ORDERED: HEPARIN NA (PORCINE) 5,000 UNITS/ML 1ML VIAL SQ SCH (22:00)
[2023-11-05] MEDS ORDERED: COLLAGENASE CLOSTRIDIUM HIST. 30 GRAMS TUBE TP SCH (10:00)
[2023-11-05 12:25] LABS: EOS % 2.9 % (0-4.5); HEMATOCRIT 25.7 % (35.4-49); HEMOGLOBIN 8.4 GM/dL (11.7-16.9); LYMPH % 13.3 % (8-40); MCH 23.4 pg (25.7-33.7); MCHC 32.8 g/dl (32.0-35.9); MEAN CELL VOLUME 71.5 fl (80-96); MEAN PLT VOLUME 7.1 fl (7.5-11.1); MONO % 11.2 % (3.8-10.2); NEUT % 72.6 % (42.8-82.8); PLATELET COUNT 284 10^3/uL (134-434); RBC 3.59 M/mm3 (4.00-5.60); RDW 20.9 % (11.9-15.9); WHITE BLOOD COUNT 8.8 K/mm3 (4.0-10.0)
[2023-11-05] MEDS: PANTOPRAZOLE 40 MG TABLET PO SCH (12:35)
[2023-11-05 12:36] LABS: POTASSIUM 3.8 mmol/L (3.5-5.1)
[2023-11-05 12:42] LABS: BLOOD UREA NITROGEN 25.8 mg/dL (7-18); CALCIUM 8.1 mg/dL (8.5-10.1)
[2023-11-05 12:43] LABS: ALBUMIN 1.7 g/dl (3.4-5.0)
[2023-11-05 12:46] LABS: CREATININE 1.5 mg/dL (0.55-1.3)
[2023-11-05 12:47] LABS: BILIRUBIN,TOTAL 0.6 mg/dL (0.2-1)
[2023-11-05] MEDS: MEROPENEM 1 GM in DEXTROSE 5%-WATER 100 ML IVPB SCH ×2 (13:48→19:26)
[2023-11-05] MEDS: LORazepam 2 MG/ML SDV VIAL IVPUSH ONE ×2 (17:37→18:37)
[2023-11-05] MEDS: COLLAGENASE CLOSTRIDIUM HIST. 30 GRAMS TUBE TP SCH (17:43)
[2023-11-05] MEDS: VANCOMYCIN/WATER FOR INJ (PEG) 1,000 MG/200 ML BAG IVPB ONE (20:19)
[2023-11-06] MEDS: POLYETHYLENE GLYCOL (HEALTHYLAX) 3350 17 GM PACKET PO SCH (17:30)
[2023-11-06] MEDS: IRON SUCROSE INJECTION 200 MG in SODIUM CHLORIDE 90 ML IVPB ONE (17:31)
[2023-11-06] MEDS: VANCOMYCIN/WATER FOR INJ (PEG) 1,000 MG/200 ML BAG IVPB ONE (21:14)
[2023-11-06] MEDS: TAMSULOSIN HCL 0.4 MG CAP PO SCH (22:29)
[2023-11-06] MEDS: BACLOFEN 10 MG TABLET (FP) PO SCH (22:30)
[2023-11-07] MEDS: IRON SUCROSE INJECTION 200 MG in SODIUM CHLORIDE 90 ML IVPB ONE (11:54)
[2023-11-07 16:12] LABS: BASO % 0.4 % (0-2.0); EOS % 5.3 % (0-4.5); HEMATOCRIT 26.7 % (35.4-49); HEMOGLOBIN 8.5 GM/dL (11.7-16.9); MCHC 31.7 g/dl (32.0-35.9); MEAN CELL VOLUME 72.4 fl (80-96); MEAN PLT VOLUME 6.9 fl (7.5-11.1); MONO % 10.5 % (3.8-10.2); NEUT % 65.8 % (42.8-82.8); PLATELET COUNT 284 10^3/uL (134-434); RBC 3.69 M/mm3 (4.00-5.60); RDW 21.2 % (11.9-15.9); WHITE BLOOD COUNT 7.7 K/mm3 (4.0-10.0)
[2023-11-07 16:36] LABS: POTASSIUM 3.8 mmol/L (3.5-5.1)
[2023-11-07 16:40] LABS: CALCIUM 7.5 mg/dL (8.5-10.1)
[2023-11-07 16:41] LABS: ALBUMIN 1.7 g/dl (3.4-5.0); BLOOD UREA NITROGEN 11.7 mg/dL (7-18); MAGNESIUM 1.2 mg/dL (1.8-2.4)
[2023-11-07 16:44] LABS: CREATININE 0.9 mg/dL (0.55-1.3)
[2023-11-07 16:45] LABS: BILIRUBIN,TOTAL 0.4 mg/dL (0.2-1); TOT PROT 6.2 g/dl (6.4-8.2)
[2023-11-07 17:18] LABS: ANISOCYTOSIS 2+; OVALOCYTE 1+
[2023-11-07 17:20] LABS: PLATELET ESTIMATE ADEQUATE
[2023-11-08 08:37] LABS: BASO % 0.4 % (0-2.0); EOS % 4.7 % (0-4.5); HEMATOCRIT 23.9 % (35.4-49); HEMOGLOBIN 7.9 GM/dL (11.7-16.9); LYMPH % 19.1 % (8-40); MEAN CELL VOLUME 72.6 fl (80-96); MEAN PLT VOLUME 6.9 fl (7.5-11.1); MONO % 9.3 % (3.8-10.2); NEUT % 66.5 % (42.8-82.8); PLATELET COUNT 264 10^3/uL (134-434); RDW 21.1 % (11.9-15.9); WHITE BLOOD COUNT 7.2 K/mm3 (4.0-10.0)
[2023-11-08 08:51] LABS: POTASSIUM 3.9 mmol/L (3.5-5.1)
[2023-11-08 09:00] LABS: ALBUMIN 1.7 g/dl (3.4-5.0); CALCIUM 7.9 mg/dL (8.5-10.1)
[2023-11-08 09:01] LABS: BLOOD UREA NITROGEN 9.6 mg/dL (7-18); MAGNESIUM 1.3 mg/dL (1.8-2.4)
[2023-11-08 09:04] LABS: BILIRUBIN,TOTAL 0.4 mg/dL (0.2-1); CREATININE 0.8 mg/dL (0.55-1.3); TOT PROT 5.9 g/dl (6.4-8.2)
[2023-11-08] MEDS: IRON SUCROSE INJECTION 200 MG in SODIUM CHLORIDE 90 ML IVPB ONE (10:09)
[2023-11-08] MEDS: MAGNESIUM SULF 50% (8.12 MEQ/2 ML-1 GM VIAL) IVPB ONE (10:57)
[2023-11-08] MEDS: MAGNESIUM OXIDE 400 MG TABLET (FP) PO SCH ×2 (10:57→11:44)
[2023-11-09] MEDS: LACTATED RINGERS SOLUTION 1,000 ML/1,000 ML INFUS.BAG IV SCH (01:45)
[2023-11-09 14:12] VITALS: BMI 31.4
[2023-11-09] MEDS: MAGNESIUM SULF 50% (8.12 MEQ/2 ML-1 GM VIAL) IVPB ONE (15:19)
[2023-11-09] MEDS: AMINO ACIDS/PROTEIN HYDROLYS 30 ML LIQUID.PKT GT SCH (17:13)
[2023-11-10 06:05] VITALS: RESP 20
[2023-11-10] MEDS ORDERED: INSULIN (NOVOLOG) ASPART 100 UNITS/ML 10ML VIAL ONE (09:23)
[2023-11-10] MEDS: MULTIVITAMINS (DAILY MVI) TABLET (FP) PO SCH (11:09)
[2023-11-10] MEDS: ASCORBIC ACID 500 MG TABLET (FP) PO SCH (11:09)
[2023-11-10 14:03] VITALS: BP 128/61; PULSE 89; TEMP 98.4
== END 2023-11-10 15:44 | DRG 871 ==
LOC: JER 13:19 → JERBED 20:32 → J8W 11-04 13:29
PROVIDERS: ADMIT Internal Medicine
PROC: 30233N1 Transfusion of Nonautologous Red Blood Cells into Peripheral Vein, Percutaneous Approach (ICD-10-PCS; principal; 2023-11-04)
DX: A41.50 Gram-negative sepsis, unspecified (principal); L89.153 Pressure ulcer of sacral region, stage 3; N39.0 Urinary tract infection, site not specified; G81.91 Hemiplegia, unspecified affecting right dominant side; M62.82 Rhabdomyolysis; L03.115 Cellulitis of right lower limb; N17.9 Acute kidney failure, unspecified; L97.828 Non-pressure chronic ulcer of other part of left lower leg with other specified severity; L97.818 Non-pressure chronic ulcer of other part of right lower leg with other specified severity; R65.20 Severe sepsis without septic shock; I25.10 Atherosclerotic heart disease of native coronary artery without angina pectoris; K57.90 Diverticulosis of intestine, part unspecified, without perforation or abscess without bleeding; I12.9 Hypertensive chronic kidney disease with stage 1 through stage 4 chronic kidney disease, or unspecified chronic kidney disease; E11.22 Type 2 diabetes mellitus with diabetic chronic kidney disease; N18.9 Chronic kidney disease, unspecified; E78.5 Hyperlipidemia, unspecified; B96.1 Klebsiella pneumoniae [K. pneumoniae] as the cause of diseases classified elsewhere; B96.20 Unspecified Escherichia coli [E. coli] as the cause of diseases classified elsewhere; N31.9 Neuromuscular dysfunction of bladder, unspecified; D64.9 Anemia, unspecified; D18.09 Hemangioma of other sites; E66.9 Obesity, unspecified; Z68.31 Body mass index [BMI] 31.0-31.9, adult; N28.1 Cyst of kidney, acquired; E86.9 Volume depletion, unspecified; R29.898 Other symptoms and signs involving the musculoskeletal system; R29.6 Repeated falls; R50.9 Fever, unspecified; W18.30XA Fall on same level, unspecified, initial encounter; Y92.098 Other place in other non-institutional residence as the place of occurrence of the external cause; Y99.9 Unspecified external cause status; Z99.3 Dependence on wheelchair
CPT/HCPCS: 0241U-QW; 36415; 36430; 70450-TC; 71045-TC-FY; 73610-TC-RT-FY; 73630-TC-RT-FY; 76700-TC; 76775-TC; 80053; 80061; 81003; 82272; 82550; 82553; 82570; 82728; 82977; 83036; 83540; 83550; 83605; 83735; 84100; 84300; 84484; 85025; 85027; 85610; 85730; 86140; 86850; 86900; 86901; 86922; 87040; 87070; 87086; 87186; 87205; 87522; 87635; 93005; 93010; 93306-TC; 93925-TC; 93970-TC; 97116-GP; 97161-GP; 99285-25; G0480; J0131; J0475; J1756; P9058

== ENCOUNTER 2023-11-26 13:12 | Inpatient (IN) | payer OTHER ==
[2023-11-26 14:00] VITALS: BMI 36.9
[2023-11-26 15:16] LABS: BASO % 0.5 % (0-2.0); EOS % 3.6 % (0-4.5); HEMATOCRIT 29.4 % (35.4-49); HEMOGLOBIN 9.4 GM/dL (11.7-16.9); MCH 24.6 pg (25.7-33.7); MCHC 31.8 g/dl (32.0-35.9); MEAN CELL VOLUME 77.1 fl (80-96); MEAN PLT VOLUME 7.1 fl (7.5-11.1); MONO % 6.7 % (3.8-10.2); NEUT % 75.2 % (42.8-82.8); PLATELET COUNT 306 10^3/uL (134-434); RBC 3.82 M/mm3 (4.00-5.60); RDW 23.4 % (11.9-15.9)
[2023-11-26 15:22] LABS: INR 1.94 (0.83-1.09); PROTHROMBIN TIME (PATIENT) 22.4 SEC (9.7-13.0)
[2023-11-26 15:42] LABS: POTASSIUM 4.5 mmol/L (3.5-5.1)
[2023-11-26 15:46] LABS: ALBUMIN 2.4 g/dl (3.4-5.0); BLOOD UREA NITROGEN 19.1 mg/dL (7-18); CALCIUM 8.6 mg/dL (8.5-10.1)
[2023-11-26 15:49] LABS: CREATININE 0.9 mg/dL (0.55-1.3)
[2023-11-26 15:50] LABS: BILIRUBIN,TOTAL 0.5 mg/dL (0.2-1); TOT PROT 7.9 g/dl (6.4-8.2)
[2023-11-26 15:59] LABS: ANISOCYTOSIS 2+; MACROCYTOSIS 0; OVALOCYTE 1+
[2023-11-26] MEDS ORDERED: ACETAMINOPHEN INJECTION 100 ML IVPB ONE (16:04)
[2023-11-26] MEDS: ACETAMINOPHEN 1000 MG/100 ML BAG IVPB ONE (16:23)
[2023-11-26] MEDS ORDERED: PIPERACILLIN/TAZOB 3.375 GM 3.375 GM/50 ML BAG IVPB ONE (21:10)
[2023-11-26] MEDS: PIPERACILLIN/TAZOB 3.375 GM 3.375 GM in DEXTROSE 5%-WATER - 50 ML IVPB ONE (21:17)
[2023-11-27] MEDS ORDERED: VANCOMYCIN HCL 1,500 MG in DEXTROSE 5%-WATER - 250 ML IVPB SCH ×2 (00:30→01:45)
[2023-11-27] MEDS ORDERED: MEROPENEM 500 MG in DEXTROSE 5%-WATER 100 ML IVPB SCH (02:00)
[2023-11-27] MEDS ORDERED: ACETAMINOPHEN 1000 MG/100 ML BAG IVPB PRN (02:34)
[2023-11-27] MEDS: VANCOMYCIN PREMIX 1.5 GM 1,500 MG/300 ML BAG IVPB SCH (03:21)
[2023-11-27] MEDS ORDERED: BACLOFEN 10 MG TABLET (FP) ONE (03:23)
[2023-11-27] MEDS ORDERED: MELATONIN 5 MG TABLETS ONE (03:23)
[2023-11-27] MEDS: MELATONIN 5 MG TABLETS PO ONE (03:27)
[2023-11-27] MEDS: BACLOFEN 10 MG TABLET (FP) PO ONE (03:27)
[2023-11-27] MEDS ORDERED: MEROPENEM 500 MG VIAL (RESTRICTED TO ID) IVPB ONE ×2 (05:32→08:47)
[2023-11-27] MEDS: MEROPENEM 500 MG in DEXTROSE 5%-WATER 100 ML IVPB SCH (05:44)
[2023-11-27 09:07] LABS: BASO % 0.4 % (0-2.0); HEMATOCRIT 26.2 % (35.4-49); HEMOGLOBIN 8.4 GM/dL (11.7-16.9); LYMPH % 16.4 % (8-40); MCH 24.7 pg (25.7-33.7); MCHC 32.2 g/dl (32.0-35.9); MEAN CELL VOLUME 76.8 fl (80-96); MONO % 9.7 % (3.8-10.2); NEUT % 68.5 % (42.8-82.8); PLATELET COUNT 267 10^3/uL (134-434); RBC 3.41 M/mm3 (4.00-5.60); RDW 23.3 % (11.9-15.9)
[2023-11-27] MEDS: LOSARTAN POTASSIUM 50 MG TABLET PO SCH (09:23)
[2023-11-27] MEDS: APIXABAN 5 MG TABLET PO SCH (09:23)
[2023-11-27] MEDS: IRON SUCROSE INJECTION 200 MG in SODIUM CHLORIDE 100 ML IVPB ONE (09:23)
[2023-11-27 09:28] LABS: POTASSIUM 4.1 mmol/L (3.5-5.1)
[2023-11-27 09:31] LABS: ALBUMIN 2.2 g/dl (3.4-5.0); BLOOD UREA NITROGEN 15.8 mg/dL (7-18); CALCIUM 8.2 mg/dL (8.5-10.1); MAGNESIUM 1.7 mg/dL (1.8-2.4)
[2023-11-27 09:34] LABS: CREATININE 0.9 mg/dL (0.55-1.3); PHOSPHOROUS 2.9 mg/dL (2.5-4.9)
[2023-11-27 09:35] LABS: TOT PROT 7.2 g/dl (6.4-8.2)
[2023-11-27 09:36] LABS: BILIRUBIN,TOTAL 0.6 mg/dL (0.2-1)
[2023-11-27] MEDS: COLLAGENASE CLOSTRIDIUM HIST. 30 GRAMS TUBE TP SCH (09:55)
[2023-11-27] MEDS: PIPERACILLIN/TAZOB 3.375 GM 3.375 GM in DEXTROSE 5%-WATER - 50 ML IVPB SCH (18:04)
[2023-11-27] MEDS: TAMSULOSIN HCL 0.4 MG CAP PO SCH (22:04)
[2023-11-27] MEDS: BACLOFEN 10 MG TABLET (FP) PO SCH (22:04)
[2023-11-27] MEDS: ATORVASTATIN CA 40 MG TABLET (FP) PO SCH (22:04)
[2023-11-28] MEDS: IRON SUCROSE INJECTION 200 MG in SODIUM CHLORIDE 100 ML IVPB ONE (10:54)
[2023-11-28] MEDS: MAGNESIUM SULF 50% (8.12 MEQ/2 ML-1 GM VIAL) IVPB ONE (16:27)
[2023-11-28] MEDS: ASCORBIC ACID 500 MG TABLET (FP) PO SCH (22:05)
[2023-11-29 09:21] LABS: BASO % 0.4 % (0-2.0); EOS % 6.7 % (0-4.5); HEMATOCRIT 26.9 % (35.4-49); HEMOGLOBIN 8.7 GM/dL (11.7-16.9); LYMPH % 17.7 % (8-40); MCH 24.8 pg (25.7-33.7); MCHC 32.2 g/dl (32.0-35.9); MEAN PLT VOLUME 6.8 fl (7.5-11.1); MONO % 7.9 % (3.8-10.2); NEUT % 67.3 % (42.8-82.8); PLATELET COUNT 264 10^3/uL (134-434); RDW 22.9 % (11.9-15.9); WHITE BLOOD COUNT 7.3 K/mm3 (4.0-10.0)
[2023-11-29 09:50] LABS: ALBUMIN 2.2 g/dl (3.4-5.0); BLOOD UREA NITROGEN 10.2 mg/dL (7-18); CALCIUM 8.3 mg/dL (8.5-10.1); MAGNESIUM 1.8 mg/dL (1.8-2.4)
[2023-11-29 09:52] LABS: CREATININE 0.8 mg/dL (0.55-1.3)
[2023-11-29 09:55] LABS: BILIRUBIN,TOTAL 0.4 mg/dL (0.2-1); TOT PROT 7.2 g/dl (6.4-8.2)
[2023-11-29] MEDS: MULTIVITAMINS (DAILY MVI) TABLET (FP) PO SCH (11:00)
[2023-11-29] MEDS: IRON SUCROSE INJECTION 200 MG in SODIUM CHLORIDE 100 ML IVPB ONE (12:45)
[2023-12-01 09:13] LABS: HEMOGLOBIN 9.2 GM/dL (11.7-16.9); MCH 24.6 pg (25.7-33.7); MCHC 31.6 g/dl (32.0-35.9); MEAN CELL VOLUME 77.7 fl (80-96); MEAN PLT VOLUME 6.6 fl (7.5-11.1); PLATELET COUNT 291 10^3/uL (134-434); RBC 3.73 M/mm3 (4.00-5.60); RDW 22.9 % (11.9-15.9); WHITE BLOOD COUNT 8.5 K/mm3 (4.0-10.0)
[2023-12-01 09:26] LABS: POTASSIUM 4.4 mmol/L (3.5-5.1)
[2023-12-01 09:30] LABS: ALBUMIN 2.3 g/dl (3.4-5.0)
[2023-12-01 09:31] LABS: BLOOD UREA NITROGEN 9.5 mg/dL (7-18); CALCIUM 8.8 mg/dL (8.5-10.1)
[2023-12-01 09:33] LABS: CREATININE 0.7 mg/dL (0.55-1.3)
[2023-12-01 09:35] LABS: BILIRUBIN,TOTAL 0.5 mg/dL (0.2-1); TOT PROT 7.9 g/dl (6.4-8.2)
[2023-12-02] MEDS: MELATONIN 5 MG TABLETS PO ONE (22:20)
[2023-12-03] MEDS: AMINO ACIDS/PROTEIN HYDROLYS 30 ML LIQUID.PKT PO SCH (11:15)
[2023-12-03] MEDS: CEFTRIAXONE 2 GM in DEXTROSE 5%-WATER 100 ML IVPB SCH (16:41)
[2023-12-04 09:34] LABS: HEMATOCRIT 29.8 % (35.4-49); HEMOGLOBIN 9.6 GM/dL (11.7-16.9); MCH 25.4 pg (25.7-33.7); MCHC 32.2 g/dl (32.0-35.9); MEAN CELL VOLUME 78.9 fl (80-96); PLATELET COUNT 258 10^3/uL (134-434); RBC 3.78 M/mm3 (4.00-5.60); RDW 23.4 % (11.9-15.9)
[2023-12-04 09:54] LABS: POTASSIUM 4.3 mmol/L (3.5-5.1)
[2023-12-04 10:34] LABS: ALBUMIN 2.4 g/dl (3.4-5.0); CALCIUM 8.8 mg/dL (8.5-10.1)
[2023-12-04 10:35] LABS: BLOOD UREA NITROGEN 18.8 mg/dL (7-18)
[2023-12-04 10:38] LABS: TOT PROT 7.9 g/dl (6.4-8.2)
[2023-12-04 10:39] LABS: BILIRUBIN,TOTAL 0.4 mg/dL (0.2-1)
[2023-12-05 09:59] LABS: HEMATOCRIT 28.9 % (35.4-49); HEMOGLOBIN 9.3 GM/dL (11.7-16.9); MCH 25.3 pg (25.7-33.7); MCHC 32.2 g/dl (32.0-35.9); MEAN CELL VOLUME 78.5 fl (80-96); PLATELET COUNT 310 10^3/uL (134-434); RBC 3.68 M/mm3 (4.00-5.60); RDW 23.2 % (11.9-15.9)
[2023-12-05] MEDS: IBUPROFEN 600 MG TABLET (FP) PO PRN (10:24)
[2023-12-05 10:42] LABS: POTASSIUM 4.5 mmol/L (3.5-5.1)
[2023-12-05 11:03] LABS: CALCIUM 8.6 mg/dL (8.5-10.1)
[2023-12-05 11:04] LABS: ALBUMIN 2.4 g/dl (3.4-5.0); BLOOD UREA NITROGEN 17.4 mg/dL (7-18)
[2023-12-05 11:07] LABS: CREATININE 0.8 mg/dL (0.55-1.3)
[2023-12-05 11:09] LABS: TOT PROT 7.8 g/dl (6.4-8.2)
[2023-12-05 11:10] LABS: BILIRUBIN,TOTAL 0.4 mg/dL (0.2-1)
[2023-12-05 13:50] VITALS: RESP 18
[2023-12-05 18:49] VITALS: BP 139/64; PULSE 83; TEMP 98.9
== END 2023-12-05 20:37 | disposition home health service (06) | DRG 580 ==
LOC: JER 13:12 → JERBED 20:43 → J5S 11-27 15:21 → OBSVTOIN 11-28 09:30
PROVIDERS: ADMIT Internal Medicine; ATTEND Internal Medicine
PROC: 0QBQ3ZX Excision of Right Toe Phalanx, Percutaneous Approach, Diagnostic (ICD-10-PCS; principal; 2023-12-03)
DX: L89.150 Pressure ulcer of sacral region, unstageable (principal); G82.20 Paraplegia, unspecified; L03.115 Cellulitis of right lower limb; L97.518 Non-pressure chronic ulcer of other part of right foot with other specified severity; M86.671 Other chronic osteomyelitis, right ankle and foot; N31.9 Neuromuscular dysfunction of bladder, unspecified; I10 Essential (primary) hypertension; I25.10 Atherosclerotic heart disease of native coronary artery without angina pectoris; N28.1 Cyst of kidney, acquired; D64.9 Anemia, unspecified; E66.9 Obesity, unspecified; Z68.36 Body mass index [BMI] 36.0-36.9, adult; K57.90 Diverticulosis of intestine, part unspecified, without perforation or abscess without bleeding; E78.5 Hyperlipidemia, unspecified; Z86.711 Personal history of pulmonary embolism; Z99.3 Dependence on wheelchair; Z86.19 Personal history of other infectious and parasitic diseases
CPT/HCPCS: 36415; 72193-TC; 73630-TC-RT-FY; 80053; 82272; 82728; 82977; 83540; 83550; 83735; 84100; 84466; 85025; 85027; 85045; 85610; 85730; 86140; 86850; 86900; 86901; 87070; 87075; 87186; 87205; 88307-TC; 88311-TC; 93005; 93010; 97116-GP; 97162-GP; 99285-25; G0378; J0131; J0475; J1756; Q9967

== ENCOUNTER 2025-07-06 03:13 | Inpatient (IN) | payer OTHER ==
[2025-07-06 04:46] LABS: EPI CELLS 18 /uL (0-25.1); HYALINE CASTS 7 /uL (0-3.1); URINE APPEARANCE TURBID; URINE BACTERIA >9,000 /uL (0-1359); URINE BILIRUBIN NEGATIVE (NEGATIVE); URINE COLOR YELLOW; URINE GLUCOSE (UA) NEGATIVE (NEGATIVE); URINE KETONE NEGATIVE (NEGATIVE); URINE LEUK ESTERASE 3+ (NEGATIVE); URINE NITRITE NEGATIVE (NEGATIVE); URINE PROTEIN 2+ (NEGATIVE); URINE RBC 492 /uL (0-23.9); URINE UROBILINOGEN 1.0 mg/dL (0.2-1.0); URINE WBC 3851 /uL (0-25.8)
[2025-07-06 05:15] LABS: ABSOLUTE IMMATURE GRANULOCYTES 0.02 x10^3/uL (0.0-0.031); BASOPHILS # 0.03 x10^3/uL (0.01-0.08); EOSINOPHIL % 0.8 % (0.8-7.0); EOSINOPHILS # 0.07 x10^3/uL (0.04-0.54); MCHC 30.7 g/dl (32.3-36.5); MEAN CELL VOLUME 81.7 fl (79.0-92.2); MEAN PLT VOLUME 9.7 fl (9.4-12.4); MONOCYTE # 0.85 x10^3/uL (0.30-0.82); MONOCYTE % 9.6 % (5.3-12.2); RDW 17.4 % (12.2-16.6)
[2025-07-06 05:41] LABS: INR 2.59 (0.83-1.09); PROTHROMBIN TIME (PATIENT) 28.2 SEC (9.7-13.0)
[2025-07-06 05:43] LABS: ACTIVATED PTT 37.5 SECONDS (25.2-36.5)
[2025-07-06 05:46] LABS: GLUCOSE,RANDOM 110 mg/dL (74-106); TOT PROT 9.0 g/dl (6.4-8.2)
[2025-07-06 05:47] LABS: CO2 31 mmol/L (21-32)
[2025-07-06 05:48] LABS: ALK PHOS 106 U/L (40-150)
[2025-07-06 05:51] LABS: CREATININE 1.77 mg/dL (0.55-1.3); SGOT/AST 25 U/L (5-34); SGPT/ALT < 6 U/L (0-55)
[2025-07-06 06:12] LABS: HIV INTERPRETATION NEGATIVE (NEGATIVE)
[2025-07-06] MEDS ORDERED: MEROPENEM 1 GM VIAL (RESTRICTED TO ID) IVPB ONE ×2 (06:16→21:43)
[2025-07-06 07:12] LABS: HCV DIAGNOSTIC IN-HOUSE W/RFLX REACTIVE (NONREACTIVE)
[2025-07-06 07:59] LABS: YEAST NONE SEEN (NEGATIVE)
[2025-07-06] MEDS: MEROPENEM 1 GM in DEXTROSE 5%-WATER 100 ML IVPB ONE (08:20)
[2025-07-06] MEDS ORDERED: EMPAGLIFLOZIN (JARDIANCE) 10 MG TABLET PO SCH (10:00)
[2025-07-06] MEDS: MEROPENEM 1 GM in DEXTROSE 5%-WATER 100 ML IVPB SCH (11:01)
[2025-07-06] MEDS: APIXABAN 5 MG TABLET PO SCH (11:02)
[2025-07-06] MEDS: POTASSIUM CHLORIDE ORAL LIQUID 20 MEQ/15 ML PO ONE (13:59)
[2025-07-06] MEDS: ATORVASTATIN CA 40 MG TABLET (FP) PO SCH (21:46)
[2025-07-06] MEDS: BACLOFEN 10 MG TABLET (FP) PO SCH (21:47)
[2025-07-07] MEDS: MEROPENEM 1 GM in DEXTROSE 5%-WATER 100 ML IVPB SCH ×2 (09:58→13:43)
[2025-07-07 11:19] LABS: ABSOLUTE IMMATURE GRANULOCYTES 0.02 x10^3/uL (0.0-0.031); BASOPHILS # 0.04 x10^3/uL (0.01-0.08); EOSINOPHIL % 3.2 % (0.8-7.0); EOSINOPHILS # 0.21 x10^3/uL (0.04-0.54); MCHC 31.2 g/dl (32.3-36.5); MEAN CELL VOLUME 80.8 fl (79.0-92.2); MEAN PLT VOLUME 9.6 fl (9.4-12.4); MONOCYTE # 0.59 x10^3/uL (0.30-0.82); MONOCYTE % 8.9 % (5.3-12.2); RDW 17.4 % (12.2-16.6)
[2025-07-07 12:23] LABS: GLUCOSE,RANDOM 107 mg/dL (74-106); TOT PROT 8.7 g/dl (6.4-8.2)
[2025-07-07 12:24] LABS: CO2 33 mmol/L (21-32)
[2025-07-07 12:26] LABS: ALK PHOS 96 U/L (40-150)
[2025-07-07 12:29] LABS: CREATININE 1.41 mg/dL (0.55-1.3); SGOT/AST 20 U/L (5-34); SGPT/ALT < 6 U/L (0-55)
[2025-07-07] MEDS: VANCOMYCIN/WATER FOR INJ (PEG) 1,000 MG/200 ML BAG IVPB ONE (13:41)
[2025-07-08 09:32] LABS: ABSOLUTE IMMATURE GRANULOCYTES 0.02 x10^3/uL (0.0-0.031); BASOPHILS # 0.04 x10^3/uL (0.01-0.08); EOSINOPHIL % 4.5 % (0.8-7.0); EOSINOPHILS # 0.27 x10^3/uL (0.04-0.54); MCHC 31.1 g/dl (32.3-36.5); MEAN CELL VOLUME 81.1 fl (79.0-92.2); MEAN PLT VOLUME 9.4 fl (9.4-12.4); MONOCYTE # 0.60 x10^3/uL (0.30-0.82); MONOCYTE % 10.0 % (5.3-12.2); RDW 17.3 % (12.2-16.6)
[2025-07-08 10:01] LABS: GLUCOSE,RANDOM 115 mg/dL (74-106); TOT PROT 8.9 g/dl (6.4-8.2)
[2025-07-08 10:02] LABS: CO2 33 mmol/L (21-32)
[2025-07-08 10:04] LABS: ALK PHOS 99 U/L (40-150)
[2025-07-08 10:06] LABS: SGOT/AST 20 U/L (5-34); SGPT/ALT < 6 U/L (0-55)
[2025-07-08 10:07] LABS: CREATININE 1.14 mg/dL (0.55-1.3)
[2025-07-08] MEDS: POTASSIUM CHLORIDE ORAL LIQUID 20 MEQ/15 ML PO ONE (13:44)
[2025-07-09 07:28] LABS: ABSOLUTE IMMATURE GRANULOCYTES 0.02 x10^3/uL (0.0-0.031); BASOPHILS # 0.05 x10^3/uL (0.01-0.08); EOSINOPHIL % 4.0 % (0.8-7.0); EOSINOPHILS # 0.23 x10^3/uL (0.04-0.54); MCHC 30.8 g/dl (32.3-36.5); MEAN CELL VOLUME 80.9 fl (79.0-92.2); MEAN PLT VOLUME 9.9 fl (9.4-12.4); MONOCYTE # 0.61 x10^3/uL (0.30-0.82); MONOCYTE % 10.5 % (5.3-12.2); RDW 17.3 % (12.2-16.6)
[2025-07-09 07:41] LABS: GLUCOSE,RANDOM 91 mg/dL (74-106); TOT PROT 8.1 g/dl (6.4-8.2)
[2025-07-09 07:42] LABS: CO2 33 mmol/L (21-32)
[2025-07-09 07:44] LABS: ALK PHOS 94 U/L (40-150)
[2025-07-09 07:47] LABS: CREATININE 0.96 mg/dL (0.55-1.3); SGOT/AST 19 U/L (5-34); SGPT/ALT < 6 U/L (0-55)
[2025-07-09] MEDS: [UNRECOGNIZED DRUG - OTHER] TP SCH (09:51)
[2025-07-09] MEDS: ASCORBIC ACID 500 MG TABLET (FP) PO SCH (13:24)
[2025-07-09] MEDS: MULTIVITAMINS (DAILY MVI) TABLET (FP) PO SCH (13:24)
[2025-07-09] MEDS: ZINC SULFATE 220 MG CAPSULE (FP) PO SCH (13:24)
[2025-07-09 14:52] VITALS: BMI 27.1
[2025-07-09 15:09] LABS: BG HCT 37.0 % (35.4-49); VENOUS BASE EXCESS 6.1 mmol/L (-2-2); VENOUS O2 SATURATION 86.6 % (70-80); VENOUS PCO2 41.9 mmHg (38-52); VENOUS PH 7.476 (7.310-7.410)
[2025-07-09] MEDS: AMINO ACIDS/PROTEIN HYDROLYS 30 ML LIQUID.PKT PO SCH (17:16)
[2025-07-09 18:24] VITALS: RESP 18
[2025-07-09] MEDS: CEPHALEXIN MONOHYDRATE 500 MG CAPSULE (UD) PO SCH (22:05)
[2025-07-09] MEDS: ZINC OXIDE 20% TOPICAL OINTMENT 30 GM TUBE TP SCH (22:08)
[2025-07-10] MEDS: traZODone HCL 50 MG TABLET (FP) PO PRN (21:30)
[2025-07-11 10:15] VITALS: TEMP 98.1
[2025-07-11 14:23] VITALS: BP 109/68; PULSE 86
== END 2025-07-11 14:20 | disposition home or self-care (01) | DRG 689 ==
LOC: JER 03:13 → JERBED 06:07 → J6S 09:29 → OBSVTOIN 14:45
PROVIDERS: ADMIT Internal Medicine; ATTEND Internal Medicine
DX: N39.0 Urinary tract infection, site not specified (principal); G93.41 Metabolic encephalopathy; L89.324 Pressure ulcer of left buttock, stage 4; R53.2 Functional quadriplegia; I69.351 Hemiplegia and hemiparesis following cerebral infarction affecting right dominant side; I13.0 Hypertensive heart and chronic kidney disease with heart failure and stage 1 through stage 4 chronic kidney disease, or unspecified chronic kidney disease; I50.22 Chronic systolic (congestive) heart failure; Z16.12 Extended spectrum beta lactamase (ESBL) resistance; I25.10 Atherosclerotic heart disease of native coronary artery without angina pectoris; E78.00 Pure hypercholesterolemia, unspecified; N28.1 Cyst of kidney, acquired; B35.1 Tinea unguium; R41.82 Altered mental status, unspecified; B96.20 Unspecified Escherichia coli [E. coli] as the cause of diseases classified elsewhere; B96.1 Klebsiella pneumoniae [K. pneumoniae] as the cause of diseases classified elsewhere; N31.9 Neuromuscular dysfunction of bladder, unspecified; K57.90 Diverticulosis of intestine, part unspecified, without perforation or abscess without bleeding; D64.9 Anemia, unspecified; E11.22 Type 2 diabetes mellitus with diabetic chronic kidney disease; N18.9 Chronic kidney disease, unspecified; Z99.3 Dependence on wheelchair
CPT/HCPCS: 36415; 70450-TC; 71045-TC-FY; 73630-TC-RT-FY; 76775-TC; 80053; 81003; 82436; 82550; 82803; 83605; 83735; 84100; 84155; 84165; 85025; 85610; 85730; 86803; 86850; 86900; 86901; 87040; 87086; 87389; 87522; 87637-QW; 93005; 93010; 97162-GP; 99285-25; G0378; J0475